=== PATIENT | female | born 1935 | race African-American/Black ===

== ENCOUNTER 2017-12-20 17:59 | Emergency (ER) | payer MEDICARE, MEDICAID ==
[2017-12-20] MEDS ORDERED: HALOPERIDOL LACTATE 5 MG/ML VIAL. (19:48)
[2017-12-20] MEDS: HALOPERIDOL LACTATE 5 MG/ML VIAL. IM (19:53)
== END 2017-12-20 21:50 | disposition home or self-care (01) ==
LOC: ER 17:59
DX: S09.90XA Unspecified injury of head, initial encounter (principal); Z86.73 Personal history of transient ischemic attack (TIA), and cerebral infarction without residual deficits; F02.80 Dementia in other diseases classified elsewhere, unspecified severity, without behavioral disturbance, psychotic disturbance, mood disturbance, and anxiety; G30.9 Alzheimer's disease, unspecified; E10.9 Type 1 diabetes mellitus without complications; I10 Essential (primary) hypertension; W18.39XA Other fall on same level, initial encounter; Y93.89 Activity, other specified; Y92.89 Other specified places as the place of occurrence of the external cause; Y99.8 Other external cause status
CPT/HCPCS: 70450; 72125; 96372; 99284-25; J1630

== ENCOUNTER 2019-02-11 09:46 | Inpatient (IN) | payer MEDICARE, OTHER ==
[~2019-02-11] VITALS: Ht 170.2 cm; Wt 81.6 kg
[~2019-02-11 09:46] MED LIST: ACET325T21 PO; AMLO10TA8 PO; ASPI-39 PO; BISA10SU55 RC; CARV6.25 PO; CLON0.1T PO; DOCU100C28 PO; LEVE500T56 PO; MULT-245 PO; ONDA4TAB7 PO; VALS320T2 PO; milk of magnesia
--- NOTE | 2019-02-11 10:35 | PHYS DOC ---
Past Medical History Past Medical History: Constipation, Dementia, Diabetes-Type I Additional Past Medical Histor: ALZHEIMERS, DYSPHAGIA WITH PUREED DIET Past Surgical History: Other Additional Past Surgical Histo: unknown Alcohol Use: None Drug Use: None Adult General Chief Complaint Chief Complaint: ALTERED MENTAL STATUS HPI HPI Patient is a 84 year old female brought in by EMS cause of altered level of consciousness. Patient is a resident of memory loss units of detention and since this morning when she woke up at 6:30 did not acting like her usual and did not talk or following the commands. Patient had GCS of 11. EMS with stable vital signs. Patient does not talk. Review of Systems Review of Systems Unable to obtain because of altered level of consciousness and history of dementia Current Medications Current Medications Current Medications Medications (Trade) Dose Ordered Sig/Akiko Start Time Stop Time Status Last Admin Dose Admin Sodium Chloride 500 ml @ 500 mls/hr 1X ONCE 02/11/19 12:15 02/11/19 13:14 DC 02/11/19 12:15 500 MLS/HR Allergies Allergies Allergies Coded Allergies Type Severity Reaction Last Updated Verified No Known Drug Allergies 01/07/14 No Physical Exam Physical Exam Constitutional: Well nourished, mild distress, non-toxic appearance, nonverbal and uncooperative, limited exam. [] HENT: Normocephalic, atraumatic Eyes: PERRLA, EOMI, conjunctiva normal, no discharge. [] Neck: Normal range of motion, no tenderness, supple, no stridor. [] Cardiovascular: Bradycardia, no murmur [] Lungs & Thorax: Bilateral breath sounds clear to auscultation [] Abdomen: Bowel sounds normal, soft, no tenderness, no masses, no pulsatile masses. [] Skin: Warm, dry, no erythema, no rash. [] Back: No tenderness, no CVA tenderness. [] Extremities: No deformity Neurologic: Awake, moves all extremities Psychologic: Unable to evaluate Current Patient Data Vital Signs Vital Signs Date Time Temp Pulse Resp B/P (MAP) Pulse Ox O2 Delivery O2 Flow Rate FiO2 02/11/19 12:00 54 14 02/11/19 11:00 100 02/11/19 09:55 97.4 145/90 (108) Room Air 97.4 Lab Values Laboratory Tests Test 02/11/19 11:08 02/11/19 11:42 White Blood Count 4.3 x10^3/uL (4.0-11.0) Red Blood Count 4.43 x10^6/uL (3.50-5.40) Hemoglobin 13.2 g/dL (12.0-15.5) Hematocrit 40.4 % (36.0-47.0) Mean Corpuscular Volume 91 fL (79-100) Mean Corpuscular Hemoglobin 30 pg (25-35) Mean Corpuscular Hemoglobin Concent 33 g/dL (31-37) Red Cell Distribution Width 13.6 % (11.5-14.5) Platelet Count 280 x10^3/uL (140-400) Neutrophils (%) (Auto) 41 % (31-73) Lymphocytes (%) (Auto) 46 % (24-48) Monocytes (%) (Auto) 11 % (0-9) H Eosinophils (%) (Auto) 2 % (0-3) Basophils (%) (Auto) 1 % (0-3) Neutrophils # (Auto) 1.8 x10^3uL (1.8-7.7) Lymphocytes # (Auto) 2.0 x10^3/uL (1.0-4.8) Monocytes # (Auto) 0.5 x10^3/uL (0.0-1.1) Eosinophils # (Auto) 0.1 x10^3/uL (0.0-0.7) Basophils # (Auto) 0.0 x10^3/uL (0.0-0.2) Erythrocyte Sedimentation Rate 21 (0-25) Sodium Level 143 mmol/L (136-145) Potassium Level 3.9 mmol/L (3.5-5.1) Chloride Level 105 mmol/L (98-107) Carbon Dioxide Level 27 mmol/L (21-32) Anion Gap 11 (6-14) Blood Urea Nitrogen 10 mg/dL (7-20) Creatinine 0.7 mg/dL (0.6-1.0) Estimated GFR (Cockcroft-Gault) 96.0 BUN/Creatinine Ratio 14 (6-20) Glucose Level 93 mg/dL (70-99) Lactic Acid Level 1.0 mmol/L (0.4-2.0) Calcium Level 9.3 mg/dL (8.5-10.1) Magnesium Level 2.0 mg/dL (1.8-2.4) Total Bilirubin 0.6 mg/dL (0.2-1.0) Aspartate Amino Transferase (AST) 14 U/L (15-37) L Alanine Aminotransferase (ALT) 15 U/L (14-59) Alkaline Phosphatase 101 U/L (46-116) Creatine Kinase 64 U/L (26-192) Troponin I Quantitative < 0.017 ng/mL (0.000-0.055) RP-Nzo-D-Type Natriuretic Peptide 35 pg/mL (0-449) Total Protein 8.5 g/dL (6.4-8.2) H Albumin 3.8 g/dL (3.4-5.0) Albumin/Globulin Ratio 0.8 (1.0-1.7) L Lipase 149 U/L (73-393) Thyroid Stimulating Hormone (TSH) 1.952 uIU/mL (0.358-3.74) Urine Collection Type U cath Urine Color Yellow Urine Clarity Clear Urine pH 7.0 Urine Specific [place] 1.010 Urine Protein Negative mg/dL (NEG-TRACE) Urine Glucose (UA) Negative mg/dL (NEG) Urine Ketones (Stick) Negative mg/dL (NEG) Urine Blood Negative (NEG) Urine Nitrite Negative (NEG) Urine Bilirubin Negative (NEG) Urine Urobilinogen Dipstick 1.0 mg/dL (0.2 mg/dL) Urine Leukocyte Esterase Negative (NEG) Urine RBC 1-2 /HPF (0-2) Urine WBC 0 /HPF (0-4) Urine Squamous Epithelial Cells Few /LPF Urine Amorphous Sediment Present /HPF Urine Bacteria 0 /HPF (0-FEW) Laboratory Tests 02/11/19 11:08 Laboratory Tests 02/11/19 11:08 EKG EKG EKG interpreted by me. EKG at 0 951 showed normal sinus rhythm at rate of 61, left axis deviation, left anterior fascicular block, LVH, inverted T-wave in lateral leads unchanged from previous EKG on 01/07/2014. Radiology/Procedures Radiology/Procedures [facility] [address] [place], [place] [id number] IMAGING REPORT Signed PATIENT: ALAN LEE ACCOUNT: [id number] : 1935 LOCATION: ER AGE: 84 SEX: F EXAM STATUS: REG ER ORD. PHYSICIAN: ANDRE ZARAGOZA MD REASON: ALOC PROCEDURE: PORTABLE CHEST 1V PORTABLE CHEST 1V Clinical indications: Altered level of consciousness COMPARISON: Chest x-ray dated January 08, 2014. Findings: A right IJ central line is in place and tip is seen within the lower superior vena cava at the junction with the right atrium No acute lung infiltrate or pleural effusion or pulmonary edema or lung mass or pneumothorax is seen. The heart size, pulmonary vasculature, mediastinum and both fredi are stable. Impression: No acute radiographic abnormality is seen. Electronically signed by: Aldo Jimenez MD (02/11/2019 11:00 AM) [facility] DICTATED and SIGNED BY: ALDO JIMENEZ MD DATE: 02/11/19 1100 [facility] [address] [place] [address] IMAGING REPORT Signed PATIENT: ALAN LEE ACCOUNT: [id number] : 1935 LOCATION: ER AGE: 84 SEX: F EXAM STATUS: REG ER ORD. PHYSICIAN: ANDRE ZARAGOZA MD REASON: ALOC PROCEDURE: CT HEAD WO CONTRAST CT HEAD WO CONTRAST Clinical indications: Altered level of consciousness COMPARISON: December 20, 2017. Technique: Noncontrast axial cross sectional scanning of the head was performed. PQRS compliance Statement One or more of the following individualized dose reduction techniques were utilized for this study: 1. Automated exposure control 2. Adjustment of the mA and/or kV according to patient size 3. Use of iterative reconstruction technique Findings: Ventricular shunt catheter is apparent. It is unchanged in position. There is another catheter seen extending through the posterior right parietal vertex area into the midline falx cerebri superior to the right lateral ventricle. This was seen previously and is unchanged. No acute intracranial hemorrhage or midline shift or mass-effect or hydrocephalus or extra-axial fluid collection is seen. Again seen is encephalomalacia of the right anterior parietal and posterior frontal area and head of the caudate nucleus including the anterior limb of internal capsule on the right side due to an old infarct. Again seen is encephalomalacia of the posterior left parietal region of the left temporal region due to an old cortical infarct.. No skull fracture or pneumocephalus is seen. No opacification of the mastoid sinuses or the paranasal sinuses is seen. The maxillary sinuses are not completely seen in this study. Impression: No acute intracranial abnormality is seen. Old infarcts. Stable ventricular system with ventricular shunt catheter in place. Electronically signed by: Aldo Jimenez MD (02/11/2019 11:05 AM) [facility] DICTATED and SIGNED BY: ALDO JIMENEZ MD DATE: 02/11/19 1532 Course & Med Decision Making Course & Med Decision Making Pertinent Labs and Imaging studies reviewed. (See chart for details) Evaluation of patient in ER showed 84-year-old female patient with history of dementia brought in because of altered level of consciousness. Patient was awake and moving her extremities. Patient did not talk and making some nonsense sounds. Patient had unremarkable labs and CT and EKG. Patient treated with IV fluids. Patient requiring admission for further evaluation and treatment. D iscussed with Dr. Lane who is in agreement with admission. Discussed findings and plan with patient and family, who acknowledge understanding and agreement. Dragon Disclaimer Dragon Disclaimer This electronic medical record was generated, in whole or in part, using a voice recognition dictation system. Departure Departure Impression: Primary Impression: Altered level of consciousness Additional Impression: Dementia Disposition: 09 ADMITTED INPATIENT Admitting Physician: Ambar Lane Condition: IMPROVED Referrals: DAT CARDENAS MD (PCP) Problem Qualifiers Additional Impression: Dementia Dementia type: unspecified type Dementia behavioral disturbance: without behavioral disturbance Qualified Codes: F03.90 - Unspecified dementia without behavioral disturbance ANDRE ZARAGOZA MD February 11, 2019 10:35
--- NOTE | 2019-02-11 11:03 | RAD ---
PORTABLE CHEST 1V Clinical indications: Altered level of consciousness COMPARISON: Chest x-ray dated January 08, 2014. Findings: A right IJ central line is in place and tip is seen within the lower superior vena cava at the junction with the right atrium No acute lung infiltrate or pleural effusion or pulmonary edema or lung mass or pneumothorax is seen. The heart size, pulmonary vasculature, mediastinum and both fredi are stable. Impression: No acute radiographic abnormality is seen. Electronically signed by: Jaziel Jimenez MD (02/11/2019 11:00 AM) [facility]
--- NOTE | 2019-02-11 11:08 | RAD ---
CT HEAD WO CONTRAST Clinical indications: Altered level of consciousness COMPARISON: December 20, 2017. Technique: Noncontrast axial cross sectional scanning of the head was performed. PQRS compliance Statement One or more of the following individualized dose reduction techniques were utilized for this study: 1. Automated exposure control 2. Adjustment of the mA and/or kV according to patient size 3. Use of iterative reconstruction technique Findings: Ventricular shunt catheter is apparent. It is unchanged in position. There is another catheter seen extending through the posterior right parietal vertex area into the midline falx cerebri superior to the right lateral ventricle. This was seen previously and is unchanged. No acute intracranial hemorrhage or midline shift or mass-effect or hydrocephalus or extra-axial fluid collection is seen. Again seen is encephalomalacia of the right anterior parietal and posterior frontal area and head of the caudate nucleus including the anterior limb of internal capsule on the right side due to an old infarct. Again seen is encephalomalacia of the posterior left parietal region of the left temporal region due to an old cortical infarct.. No skull fracture or pneumocephalus is seen. No opacification of the mastoid sinuses or the paranasal sinuses is seen. The maxillary sinuses are not completely seen in this study. Impression: No acute intracranial abnormality is seen. Old infarcts. Stable ventricular system with ventricular shunt catheter in place. Electronically signed by: Jaziel Jimenez MD (02/11/2019 11:05 AM) [facility]
[2019-02-11 11:17] LABS: BASO % 1 % (0-3); EOS # 0.1 x10^3/uL (0.0-0.7); EOS % 2 % (0-3); HEMATOCRIT 40.4 % (36.0-47.0); HEMOGLOBIN 13.2 g/dL (12.0-15.5); LYMPH % 46 % (24-48); MEAN CORPUSCULAR HEMOGLOBIN 30 pg (25-35); MEAN CORPUSCULAR HGB CONC 33 g/dL (31-37); MEAN CORPUSCULAR VOLUME 91 fL (79-100); MONO # 0.5 x10^3/uL (0.0-1.1); MONO % 11 % (0-9); NEUT # 1.8 x10^3uL (1.8-7.7); NEUT % 41 % (31-73); PLATELET COUNT 280 x10^3/uL (140-400); RED BLOOD COUNT 4.43 x10^6/uL (3.50-5.40); RED CELL DISTRIBUTION WIDTH 13.6 % (11.5-14.5); WHITE BLOOD COUNT 4.3 x10^3/uL (4.0-11.0)
--- NOTE | 2019-02-11 11:28 | EKG ---
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
[2019-02-11 11:30] LABS: CALCIUM 9.3 mg/dL (8.5-10.1); CREATININE 0.7 mg/dL (0.6-1.0); POTASSIUM 3.9 mmol/L (3.5-5.1)
[2019-02-11 11:44] LABS: ALBUMIN 3.8 g/dL (3.4-5.0); ALBUMIN/GLOBULIN RATIO 0.8 (1.0-1.7); TOTAL BILIRUBIN 0.6 mg/dL (0.2-1.0); TOTAL PROTEIN 8.5 g/dL (6.4-8.2)
[2019-02-11 11:55] LABS: BILIRUBIN,URINE NEGATIVE (NEG); CLARITY,URINE CLEAR; COLOR,URINE YELLOW; NITRITE,URINE NEGATIVE (NEG); PROTEIN,URINE NEGATIVE (NEG-TRACE)
[2019-02-11 12:09] LABS: SQUAMOUS EPITHELIAL CELL,UR FEW /LPF
[2019-02-11 12:10] LABS: AMORPHOUS SEDIMENT,UR PRESENT /HPF; BACTERIA,URINE 0 /HPF (0-FEW); WBC,URINE 0 /HPF (0-4)
[2019-02-11] MEDS ORDERED: IV NORMAL SALINE 500ML BAG 500 ML IV ONE (12:15)
[2019-02-11] MEDS: IV NORMAL SALINE 1000ML BAG 1,000 ML IV SCH ×2 (13:04→21:02)
--- NOTE | 2019-02-11 13:27 | PDOC1 ---
History and Physical Date of Admission Date of Admission DATE: 02/11/19 TIME: 13:21 Identification/Chief Complaint Chief Complaint Change in mental status Source Source: Caregiver, Chart review, Patient History of Present Illness History of Present Illness 84-year-old female, she resides in the memory center at [facility]. She was brought in because her baseline is usually talkative and oriented 1, and now she just moans and moans when she answers to my questions. No family at bedside. I'm unsure if she's a full code. She was last seen here [address] Tico Wright. Labs actually looked great and there is no signs of infection. Patient admitted for further workup because of this change in mental status. CT head and chest x-ray normal NO sedimentation rate yet. No signs of infection in the urine and no signs of pneumonia. Im unsure if she actually eats a dysphagia diet and mcc a regular diet Past Medical History Cardiovascular: HTN CENTRAL NERVOUS SYSTEM: Dementia, Seizure Past Surgical History Past Surgical History: No pertinent history Family History Family History: Family History Unknown Social History Smoke: No ALCOHOL: none Drugs: None Current Medications Current Medications Current Medications Sodium Chloride 500 ml @ 500 mls/hr 1X ONCE IV Last administered on 02/11/19at 12:15; Start 02/11/19 at 12:15; Stop 02/11/19 at 13:14; Status DC Sodium Chloride 1,000 ml @ 100 mls/hr Q10H IV ; Start 02/11/19 at 13:04; Stop 02/12/19 at 13:03 Acetaminophen (Tylenol) 500 mg PRN Q6HRS PRN PO MILD PAIN / TEMP; Start 02/11/19 at 13:30; Status UNV Ondansetron HCl (Zofran) 4 mg PRN Q6HRS PRN IV NAUSEA/VOMITING; Start 02/11/19 at 13:30; Status UNV Acetaminophen (Tylenol) 325 mg BID PO ; Start 02/11/19 at 21:00; Status UNV Amlodipine Besylate (Norvasc) 10 mg DAILY PO ; Start 02/12/19 at 09:00; Status UNV Aspirin (Children'S Aspirin) 81 mg DAILY PO ; Start 02/12/19 at 09:00; Status UNV Carvedilol (Coreg) 6.25 mg BID PO ; Start 02/11/19 at 21:00; Status UNV Clonidine HCl (Catapres) 0.1 mg BID PO ; Start 02/11/19 at 21:00; Status UNV Docusate Sodium (Colace) 100 mg DAILY PO ; Start 02/12/19 at 09:00; Status UNV Levetiracetam (Keppra) 500 mg DAILY PO ; Start 02/12/19 at 09:00; Status UNV Multivit/ Folic Acid/Iron (Multivitamin ) 1 tab DAILY PO ; Start 02/12/19 at 09:00; Status UNV Active Scripts Active Reported Acetaminophen 325 Mg Tablet 325 Mg PO Zofran (Ondansetron Hcl) 4 Mg Tablet 4 Mg PO Dulcolax (Bisacodyl) 10 Mg Supp.rect 10 Mg RC [milk of magnesia] Clonidine Hcl 0.1 Mg Tablet 0.1 Mg PO Docusate Sodium 100 Mg Capsule 100 Mg PO Ema Chewable (Aspirin) 81 Mg Tab.chew 81 Mg PO Coreg (Carvedilol) 6.25 Mg Tablet 6.25 Mg PO Keppra (Levetiracetam) 500 Mg Tablet 500 Mg PO Amlodipine Besylate 10 Mg Tablet 10 Mg PO Multi Vitamin Daily (Multivitamin) 1 Each Tablet 1 Each PO Diovan (Valsartan) 320 Mg Tablet 320 Mg PO Allergies Allergies: Coded Allergies: No Known Drug Allergies (Unverified , 01/07/14) ROS Review of System Dementia, ROS could not be obtained Physical Exam General: No acute distress, Other (moans, awake, moans when I ask her questio ns) HEENT: PERRLA Lungs: Clear to auscultation, Normal air movement Heart: S1S2, RRR, no thrills, no rubs, no gallops, no murmurs Cardiovascular: S1, S2 Breasts: Normal, Rt breast nml w/o mass, Lt breast nml w/o mass, Nipples normal Abdomen: Normal bowel sounds, Soft, No tenderness, No hepatosplenomegaly, No masses Rectal Exam: not examined PELVIC: Nml ext genitalia Extremities: No clubbing, No cyanosis, No edema, Normal pulses, No tender ness/swelling Skin: No rashes, No breakdown, No significant lesion Vitals Vitals Vital Signs Date Time Temp Pulse Resp B/P (MAP) Pulse Ox O2 Delivery O2 Flow Rate FiO2 02/11/19 12:30 58 18 02/11/19 11:00 100 02/11/19 09:55 97.4 145/90 (108) Room Air 97.4 Labs Labs Laboratory Tests Test 02/11/19 11:08 02/11/19 11:42 White Blood Count 4.3 x10^3/uL (4.0-11.0) Red Blood Count 4.43 x10^6/uL (3.50-5.40) Hemoglobin 13.2 g/dL (12.0-15.5) Hematocrit 40.4 % (36.0-47.0) Mean Corpuscular Volume 91 fL (79-100) Mean Corpuscular Hemoglobin 30 pg (25-35) Mean Corpuscular Hemoglobin Concent 33 g/dL (31-37) Red Cell Distribution Width 13.6 % (11.5-14.5) Platelet Count 280 x10^3/uL (140-400) Neutrophils (%) (Auto) 41 % (31-73) Lymphocytes (%) (Auto) 46 % (24-48) Monocytes (%) (Auto) 11 % (0-9) Eosinophils (%) (Auto) 2 % (0-3) Basophils (%) (Auto) 1 % (0-3) Neutrophils # (Auto) 1.8 x10^3uL (1.8-7.7) Lymphocytes # (Auto) 2.0 x10^3/uL (1.0-4.8) Monocytes # (Auto) 0.5 x10^3/uL (0.0-1.1) Eosinophils # (Auto) 0.1 x10^3/uL (0.0-0.7) Basophils # (Auto) 0.0 x10^3/uL (0.0-0.2) Sodium Level 143 mmol/L (136-145) Potassium Level 3.9 mmol/L (3.5-5.1) Chloride Level 105 mmol/L (98-107) Carbon Dioxide Level 27 mmol/L (21-32) Anion Gap 11 (6-14) Blood Urea Nitrogen 10 mg/dL (7-20) Creatinine 0.7 mg/dL (0.6-1.0) Estimated GFR (Cockcroft-Gault) 96.0 BUN/Creatinine Ratio 14 (6-20) Glucose Level 93 mg/dL (70-99) Lactic Acid Level 1.0 mmol/L (0.4-2.0) Calcium Level 9.3 mg/dL (8.5-10.1) Magnesium Level 2.0 mg/dL (1.8-2.4) Total Bilirubin 0.6 mg/dL (0.2-1.0) Aspartate Amino Transf (AST/SGOT) 14 U/L (15-37) Alanine Aminotransferase (ALT/SGPT) 15 U/L (14-59) Alkaline Phosphatase 101 U/L (46-116) Creatine Kinase 64 U/L (26-192) Troponin I Quantitative < 0.017 ng/mL (0.000-0.055) XT-Uzm-U-Type Natriuretic Peptide 35 pg/mL (0-449) Total Protein 8.5 g/dL (6.4-8.2) Albumin 3.8 g/dL (3.4-5.0) Albumin/Globulin Ratio 0.8 (1.0-1.7) Lipase 149 U/L (73-393) Urine Collection Type U cath Urine Color Yellow Urine Clarity Clear Urine pH 7.0 Urine Specific [place] 1.010 Urine Protein Negative mg/dL (NEG-TRACE) Urine Glucose (UA) Negative mg/dL (NEG) Urine Ketones (Stick) Negative mg/dL (NEG) Urine Blood Negative (NEG) Urine Nitrite Negative (NEG) Urine Bilirubin Negative (NEG) Urine Urobilinogen Dipstick 1.0 mg/dL (0.2 mg/dL) Urine Leukocyte Esterase Negative (NEG) Urine RBC 1-2 /HPF (0-2) Urine WBC 0 /HPF (0-4) Urine Squamous Epithelial Cells Few /LPF Urine Amorphous Sediment Present /HPF Urine Bacteria 0 /HPF (0-FEW) Laboratory Tests Test 02/11/19 11:08 02/11/19 11:42 White Blood Count 4.3 x10^3/uL (4.0-11.0) Red Blood Count 4.43 x10^6/uL (3.50-5.40) Hemoglobin 13.2 g/dL (12.0-15.5) Hematocrit 40.4 % (36.0-47.0) Mean Corpuscular Volume 91 fL (79-100) Mean Corpuscular Hemoglobin 30 pg (25-35) Mean Corpuscular Hemoglobin Concent 33 g/dL (31-37) Red Cell Distribution Width 13.6 % (11.5-14.5) Platelet Count 280 x10^3/uL (140-400) Neutrophils (%) (Auto) 41 % (31-73) Lymphocytes (%) (Auto) 46 % (24-48) Monocytes (%) (Auto) 11 % (0-9) Eosinophils (%) (Auto) 2 % (0-3) Basophils (%) (Auto) 1 % (0-3) Neutrophils # (Auto) 1.8 x10^3uL (1.8-7.7) Lymphocytes # (Auto) 2.0 x10^3/uL (1.0-4.8) Monocytes # (Auto) 0.5 x10^3/uL (0.0-1.1) Eosinophils # (Auto) 0.1 x10^3/uL (0.0-0.7) Basophils # (Auto) 0.0 x10^3/uL (0.0-0.2) Sodium Level 143 mmol/L (136-145) Potassium Level 3.9 mmol/L (3.5-5.1) Chloride Level 105 mmol/L (98-107) Carbon Dioxide Level 27 mmol/L (21-32) Anion Gap 11 (6-14) Blood Urea Nitrogen 10 mg/dL (7-20) Creatinine 0.7 mg/dL (0.6-1.0) Estimated GFR (Cockcroft-Gault) 96.0 BUN/Creatinine Ratio 14 (6-20) Glucose Level 93 mg/dL (70-99) Lactic Acid Level 1.0 mmol/L (0.4-2.0) Calcium Level 9.3 mg/dL (8.5-10.1) Magnesium Level 2.0 mg/dL (1.8-2.4) Total Bilirubin 0.6 mg/dL (0.2-1.0) Aspartate Amino Transf (AST/SGOT) 14 U/L (15-37) Alanine Aminotransferase (ALT/SGPT) 15 U/L (14-59) Alkaline Phosphatase 101 U/L (46-116) Creatine Kinase 64 U/L (26-192) Troponin I Quantitative < 0.017 ng/mL (0.000-0.055) JT-Nww-I-Type Natriuretic Peptide 35 pg/mL (0-449) Total Protein 8.5 g/dL (6.4-8.2) Albumin 3.8 g/dL (3.4-5.0) Albumin/Globulin Ratio 0.8 (1.0-1.7) Lipase 149 U/L (73-393) Urine Collection Type U cath Urine Color Yellow Urine Clarity Clear Urine pH 7.0 Urine Specific [place] 1.010 Urine Protein Negative mg/dL (NEG-TRACE) Urine Glucose (UA) Negative mg/dL (NEG) Urine Ketones (Stick) Negative mg/dL (NEG) Urine Blood Negative (NEG) Urine Nitrite Negative (NEG) Urine Bilirubin Negative (NEG) Urine Urobilinogen Dipstick 1.0 mg/dL (0.2 mg/dL) Urine Leukocyte Esterase Negative (NEG) Urine RBC 1-2 /HPF (0-2) Urine WBC 0 /HPF (0-4) Urine Squamous Epithelial Cells Few /LPF Urine Amorphous Sediment Present /HPF Urine Bacteria 0 /HPF (0-FEW) VTE Prophylaxis Ordered VTE Prophylaxis Devices: Yes VTE Pharmacological Prophylaxi: Yes Assessment/Plan Assessment/Plan Mett encephalopathy, so far no signs of infection-we'll check Keppra levels - Check sedimentation rate Check TSH [facility] resident Alzheimer's type dementia Hypertension, controlled SZ? 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
[2019-02-11] MEDS ORDERED: ACETAMINOPHEN 500 MG TABLET PO PRN (13:30)
[2019-02-11] MEDS ORDERED: ONDANSETRON PF 4 MG/2 ML VIAL. IV PRN (13:30)
[2019-02-11 13:58] VITALS: BP 157/102
[2019-02-11] MEDS ORDERED: DOCUSATE SODIUM 100 MG CAPSULE. PO SCH (14:30)
[2019-02-11] MEDS: amLODIPine BESYLATE 10 MG TABLET PO SCH (14:30)
[2019-02-11] MEDS ORDERED: ACETAMINOPHEN 325 MG TABLET. PO SCH (14:30)
[2019-02-11] MEDS ORDERED: cloNIDine HCL 0.1 MG TABLET PO SCH (14:30)
[2019-02-11] MEDS ORDERED: PRENATAL MULTIVITAMIN TABLET. PO SCH (14:30)
[2019-02-11] MEDS: ASPIRIN CHEWABLE 81 MG TABLET. PO SCH (14:30)
[2019-02-11] MEDS: levETIRAcetam 500 MG TABLET PO SCH (14:30)
[2019-02-11 15:00] VITALS: BP 155/89
[2019-02-11] MEDS ORDERED: POTA20LI27 PO (15:13)
[2019-02-11] MEDS ORDERED: MAGN400O7 PO (15:13)
[2019-02-11] MEDS ORDERED: MELA3TAB2 PO (15:13)
[2019-02-11] MEDS ORDERED: SENN-80 PO (15:13)
[2019-02-11] MEDS ORDERED: POLY17PO29 PO (15:13)
[2019-02-11] MEDS ORDERED: CARVEDILOL 6.25 MG TABLET. PO SCH (17:00)
[2019-02-11 19:11] VITALS: BP 138/87
[2019-02-11] MEDS: SENNOSIDES 8.6 MG TABLET PO SCH (21:00)
[2019-02-11] MEDS ORDERED: NON FORMULARY ITEM (Melatonin 1 TAB) PO SCH (21:00)
[2019-02-11 23:56] VITALS: BP 134/88
[2019-02-12 03:28] VITALS: BP 106/61
[2019-02-12 07:00] VITALS: BP 148/89
[2019-02-12] MEDS: IV NORMAL SALINE 1000ML BAG 1,000 ML IV SCH (07:06)
[2019-02-12] MEDS: MAGNESIUM HYDROXIDE 2,400 MG/30 ML ORAL.SUSP. PO SCH (10:13)
[2019-02-12] MEDS: SENNOSIDES 8.6 MG TABLET PO SCH ×2 (10:13→21:00)
[2019-02-12] MEDS: levETIRAcetam 500 MG TABLET PO SCH (10:14)
[2019-02-12] MEDS: ASPIRIN CHEWABLE 81 MG TABLET. PO SCH (10:14)
[2019-02-12] MEDS: amLODIPine BESYLATE 10 MG TABLET PO SCH (10:14)
[2019-02-12] MEDS: POTASSIUM CHLORIDE 20 MEQ TABLET.ER. PO SCH (10:15)
[2019-02-12] MEDS: POLYETHYLENE GLYCOL 3350 17 GM PACKET. PO SCH (10:15)
--- NOTE | 2019-02-12 10:44 | PDOC2 ---
CONSULT Date of Consult Date of Consult DATE: 02/12/19 TIME: 10:44 Reason for Consult Reason for Consult: AMS Identification/Chief Complaint Chief Complaint AMS History of Present Illness Reason for Visit: This patient is 84[facility]-old [facility] from [facility]. Patient has history of Alzheimer's disease. Patient has history of seizure disorder maintained on Keppra. Patient had episode of confusion. Patient did not have any tongue bite or jerking in her extremities. Past Medical History Cardiovascular: HTN CENTRAL NERVOUS SYSTEM: Dementia, Seizure Past Surgical History Past Surgical History: No pertinent history Family History Family History: Family History Unknown Social History No ALCOHOL: none Drugs: None Current Problem List Problem List Problems Medical Problems: (1) Altered level of consciousness Status: Acute (2) Dementia Status: Acute Current Medications Current Medications Current Medications Sodium Chloride 500 ml @ 500 mls/hr 1X ONCE IV Last administered on 02/11/19at 12:15; Start 02/11/19 at 12:15; Stop 02/11/19 at 13:14; Status DC Sodium Chloride 1,000 ml @ 100 mls/hr Q10H IV Last administered on 02/12/19at 07:06; Start 02/11/19 at 13:04; Stop 02/12/19 at 13:03 Acetaminophen (Tylenol) 500 mg PRN Q6HRS PRN PO MILD PAIN / TEMP; Start 02/11/19 at 13:30 Ondansetron HCl (Zofran) 4 mg PRN Q6HRS PRN IV NAUSEA/VOMITING; Start 02/11/19 at 13:30 Acetaminophen (Tylenol) 325 mg BID PO ; Start 02/11/19 at 14:30; Stop 02/11/19 at 17:10; Status DC Amlodipine Besylate (Norvasc) 10 mg DAILY PO Last administered on 02/12/19at 10:14; Start 02/11/19 at 14:30 Aspirin (Children'S Aspirin) 81 mg DAILY PO Last administered on 02/12/19at 10:14; Start 02/11/19 at 14:30 Carvedilol (Coreg) 6.25 mg BIDWMEALS PO ; Start 02/11/19 at 17:00; Stop 02/11/19 at 17:10; Status DC Clonidine HCl (Catapres) 0.1 mg BID PO ; Start 02/11/19 at 14:30; Stop 02/11/19 at 17:10; Status DC Docusate Sodium (Colace) 100 mg DAILY PO ; Start 02/11/19 at 14:30; Stop 02/11/19 at 17:10; Status DC Levetiracetam (Keppra) 500 mg DAILY PO Last administered on 02/12/19 10:14; Start 02/11/19 at 14:30 Multivit/ Folic Acid/Iron (Multivitamin ) 1 tab DAILY PO ; Start 02/11/19 at 14:30; Stop 02/11/19 at 17:10; Status DC Magnesium Hydroxide (Milk Of Magnesia) 400 mg DAILY PO Last administered on 02/12/19at 10:13; Start 02/12/19 at 09:00 Non-Formulary Medication (Melatonin ) 1 tab QHS PO ; Start 02/11/19 at 21:00; Status UNV Polyethylene Glycol (miraLAX PACKET) 17 gm DAILY PO Last administered on 02/12/19 10:15; Start 02/12/19 at 09:00 Potassium Chloride (Klor-Con) 20 meq DAILYWBKFT PO Last administered on 02/12/19 10:15; Start 02/12/19 at 08:00 Sennosides (Senna) 8.6 mg BID PO Last administered on 02/12/19 10:13; Start 02/11/19 at 21:00 Active Scripts Active Reported Senna (Sennosides) 8.6 Mg Tablet 8.6 Mg PO BID Potassium Chloride Oral Liquid (Potassium Chloride) 20 Meq/15 Ml Liquid 20 Meq PO DAILY Miralax (Polyethylene Glycol 3350) 17 Gm Powd.pack 1 Packet PO DAILY Milk Of Magnesia (Magnesium Hydroxide) 400 Mg/5 Ml Oral.susp 400 Mg PO DAILY Melatonin 3 Mg Tablet 1 Tab PO QHS Acetaminophen 325 Mg Tablet 650 Mg PO PRN Q4HRS PRN Ema Chewable (Aspirin) 81 Mg Tab.chew 81 Mg PO DAILY Keppra (Levetiracetam) 500 Mg Tablet 750 Mg PO BID Amlodipine Besylate 10 Mg Tablet 10 Mg PO DAILY Allergies Allergies: Coded Allergies: No Known Drug Allergies (Unverified , 01/07/14) Physical Exam Physical Exam A 10-point review of systems was obtained. Other than the history of present illness the remainder of the review of systems is negative. General no acute distress. HEENT: Normocephalic and atraumatic. NECK: Supple without bruit Respiratory: Clear to auscultation bilaterally Heart: Regular rate and rhythm, S1S2 normal NEUROLOGIC: Mental status Alert cognitive impairment. Cranial nerve equally reactive pupils, and intact extraocular movements. No facial asymmetry. Palate elevates and tongue protrudes in midline. Reflexes are 1+with flexor plantar responses. Strength able to move all exts to stimuli upper more than lower Sensory exam is intact for light touch and pinprick. Gait in bed. Vitals VITALS Vital Signs Date Time Temp Pulse Resp B/P (MAP) Pulse Ox O2 Delivery O2 Flow Rate FiO2 02/12/19 10:14 51 148/89 02/12/19 07:00 98.1 18 97 Room Air 98.1 Labs Labs Laboratory Tests Test 02/11/19 11:08 02/11/19 11:42 02/11/19 16:38 02/11/19 21:39 White Blood Count 4.3 x10^3/uL (4.0-11.0) Red Blood Count 4.43 x10^6/uL (3.50-5.40) Hemoglobin 13.2 g/dL (12.0-15.5) Hematocrit 40.4 % (36.0-47.0) Mean Corpuscular Volume 91 fL (79-100) Mean Corpuscular Hemoglobin 30 pg (25-35) Mean Corpuscular Hemoglobin Concent 33 g/dL (31-37) Red Cell Distribution Width 13.6 % (11.5-14.5) Platelet Count 280 x10^3/uL (140-400) Neutrophils (%) (Auto) 41 % (31-73) Lymphocytes (%) (Auto) 46 % (24-48) Monocytes (%) (Auto) 11 % (0-9) Eosinophils (%) (Auto) 2 % (0-3) Basophils (%) (Auto) 1 % (0-3) Neutrophils # (Auto) 1.8 x10^3uL (1.8-7.7) Lymphocytes # (Auto) 2.0 x10^3/uL (1.0-4.8) Monocytes # (Auto) 0.5 x10^3/uL (0.0-1.1) Eosinophils # (Auto) 0.1 x10^3/uL (0.0-0.7) Basophils # (Auto) 0.0 x10^3/uL (0.0-0.2) Erythrocyte Sedimentation Rate 21 (0-25) Sodium Level 143 mmol/L (136-145) Potassium Level 3.9 mmol/L (3.5-5.1) Chloride Level 105 mmol/L (98-107) Carbon Dioxide Level 27 mmol/L (21-32) Anion Gap 11 (6-14) Blood Urea Nitrogen 10 mg/dL (7-20) Creatinine 0.7 mg/dL (0.6-1.0) Estimated GFR (Cockcroft-Gault) 96.0 BUN/Creatinine Ratio 14 (6-20) Glucose Level 93 mg/dL (70-99) Lactic Acid Level 1.0 mmol/L (0.4-2.0) Calcium Level 9.3 mg/dL (8.5-10.1) Magnesium Level 2.0 mg/dL (1.8-2.4) Total Bilirubin 0.6 mg/dL (0.2-1.0) Aspartate Amino Transf (AST/SGOT) 14 U/L (15-37) Alanine Aminotransferase (ALT/SGPT) 15 U/L (14-59) Alkaline Phosphatase 101 U/L (46-116) Creatine Kinase 64 U/L (26-192) Troponin I Quantitative < 0.017 ng/mL (0.000-0.055) BE-Man-G-Type Natriuretic Peptide 35 pg/mL (0-449) Total Protein 8.5 g/dL (6.4-8.2) Albumin 3.8 g/dL (3.4-5.0) Albumin/Globulin Ratio 0.8 (1.0-1.7) Lipase 149 U/L (73-393) Vitamin B12 Level 383 pg/mL (247-911) Thyroid Stimulating Hormone (TSH) 1.952 uIU/mL (0.358-3.74) Urine Collection Type U cath Urine Color Yellow Urine Clarity Clear Urine pH 7.0 Urine Specific [place] 1.010 Urine Protein Negative mg/dL (NEG-TRACE) Urine Glucose (UA) Negative mg/dL (NEG) Urine Ketones (Stick) Negative mg/dL (NEG) Urine Blood Negative (NEG) Urine Nitrite Negative (NEG) Urine Bilirubin Negative (NEG) Urine Urobilinogen Dipstick 1.0 mg/dL (0.2 mg/dL) Urine Leukocyte Esterase Negative (NEG) Urine RBC 1-2 /HPF (0-2) Urine WBC 0 /HPF (0-4) Urine Squamous Epithelial Cells Few /LPF Urine Amorphous Sediment Present /HPF Urine Bacteria 0 /HPF (0-FEW) Glucose (Fingerstick) 78 mg/dL (70-99) 95 mg/dL (70-99) Test 02/12/19 08:38 Glucose (Fingerstick) 85 mg/dL (70-99) Laboratory Tests Test 02/11/19 11:08 02/11/19 11:42 02/11/19 16:38 02/11/19 21:39 White Blood Count 4.3 x10^3/uL (4.0-11.0) Red Blood Count 4.43 x10^6/uL (3.50-5.40) Hemoglobin 13.2 g/dL (12.0-15.5) Hematocrit 40.4 % (36.0-47.0) Mean Corpuscular Volume 91 fL (79-100) Mean Corpuscular Hemoglobin 30 pg (25-35) Mean Corpuscular Hemoglobin Concent 33 g/dL (31-37) Red Cell Distribution Width 13.6 % (11.5-14.5) Platelet Count 280 x10^3/uL (140-400) Neutrophils (%) (Auto) 41 % (31-73) Lymphocytes (%) (Auto) 46 % (24-48) Monocytes (%) (Auto) 11 % (0-9) Eosinophils (%) (Auto) 2 % (0-3) Basophils (%) (Auto) 1 % (0-3) Neutrophils # (Auto) 1.8 x10^3uL (1.8-7.7) Lymphocytes # (Auto) 2.0 x10^3/uL (1.0-4.8) Monocytes # (Auto) 0.5 x10^3/uL (0.0-1.1) Eosinophils # (Auto) 0.1 x10^3/uL (0.0-0.7) Basophils # (Auto) 0.0 x10^3/uL (0.0-0.2) Erythrocyte Sedimentation Rate 21 (0-25) Sodium Level 143 mmol/L (136-145) Potassium Level 3.9 mmol/L (3.5-5.1) Chloride Level 105 mmol/L (98-107) Carbon Dioxide Level 27 mmol/L (21-32) Anion Gap 11 (6-14) Blood Urea Nitrogen 10 mg/dL (7-20) Creatinine 0.7 mg/dL (0.6-1.0) Estimated GFR (Cockcroft-Gault) 96.0 BUN/Creatinine Ratio 14 (6-20) Glucose Level 93 mg/dL (70-99) Lactic Acid Level 1.0 mmol/L (0.4-2.0) Calcium Level 9.3 mg/dL (8.5-10.1) Magnesium Level 2.0 mg/dL (1.8-2.4) Total Bilirubin 0.6 mg/dL (0.2-1.0) Aspartate Amino Transf (AST/SGOT) 14 U/L (15-37) Alanine Aminotransferase (ALT/SGPT) 15 U/L (14-59) Alkaline Phosphatase 101 U/L (46-116) Creatine Kinase 64 U/L (26-192) Troponin I Quantitative < 0.017 ng/mL (0.000-0.055) LT-Ant-F-Type Natriuretic Peptide 35 pg/mL (0-449) Total Protein 8.5 g/dL (6.4-8.2) Albumin 3.8 g/dL (3.4-5.0) Albumin/Globulin Ratio 0.8 (1.0-1.7) Lipase 149 U/L (73-393) Vitamin B12 Level 383 pg/mL (247-911) Thyroid Stimulating Hormone (TSH) 1.952 uIU/mL (0.358-3.74) Urine Collection Type U cath Urine Color Yellow Urine Clarity Clear Urine pH 7.0 Urine Specific [place] 1.010 Urine Protein Negative mg/dL (NEG-TRACE) Urine Glucose (UA) Negative mg/dL (NEG) Urine Ketones (Stick) Negative mg/dL (NEG) Urine Blood Negative (NEG) Urine Nitrite Negative (NEG) Urine Bilirubin Negative (NEG) Urine Urobilinogen Dipstick 1.0 mg/dL (0.2 mg/dL) Urine Leukocyte Esterase Negative (NEG) Urine RBC 1-2 /HPF (0-2) Urine WBC 0 /HPF (0-4) Urine Squamous Epithelial Cells Few /LPF Urine Amorphous Sediment Present /HPF Urine Bacteria 0 /HPF (0-FEW) Glucose (Fingerstick) 78 mg/dL (70-99) 95 mg/dL (70-99) Test 02/12/19 08:38 Glucose (Fingerstick) 85 mg/dL (70-99) Assessment/Plan Assessment/Plan This patient is 84-year-old woman from [facility]. Patient has history of Alzheimer's disease. Patient has history of seizure disorder maintained on Keppra. Patient had episode of confusion. Patient did not have any tongue bite or jerking in her extremities. 84-year-old woman with past medical history of seizure disorder, dementia with encephalopathy check for infectious or metabolic etiology with possible seizure episode. Patient appears to be at baseline. Patient had Keppra levels pending. Dementia continue treat and monitor. Hypertension continue treat and monitor. Patient is maintained on Keppra. PT OT evaluation Patient had a CT scan done on the brain which did not show any evidence of acute intracranial etiology. Old stroke noted. 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 Atrophy noted. MRI of brain pending if patient will get MRI of brain w ill repeat CT scan brain for interval exam. Continue medical management. She will follow up in neurology clinic KATH DENSON MD February 12, 2019 10:44
[2019-02-12 11:00] VITALS: BP 130/84
--- NOTE | 2019-02-12 11:13 | PDOC ---
PROGRESS NOTES Chief Complaint Chief Complaint Mett encephalopathy, so far no signs of infection-we'll check Keppra levels - Check sedimentation rate Check TSH [facility] resident Alzheimer's type dementia Hypertension, controlled SZ? 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 TIER Back to SNU on discharge Full code Vitals Vitals Vital Signs Date Time Temp Pulse Resp B/P (MAP) Pulse Ox O2 Delivery O2 Flow Rate FiO2 02/12/19 10:14 51 148/89 02/12/19 07:00 98.1 18 97 Room Air 98.1 Physical Exam General: Cooperative, No acute distress, Other (moans, awake, moans when I ask her questions) Heart: Regular rate, Normal S1, Normal S2 Lungs: Clear Abdomen: Normal bowel sounds, Soft, No tenderness, No hepatosplenomegaly, No masses Extremities: No clubbing, No cyanosis, No edema, Normal pulses, No tenderness/swelling Skin: No rashes, No breakdown, No significant lesion Labs LABS Laboratory Tests Test 02/11/19 11:42 02/11/19 16:38 02/11/19 21:39 02/12/19 08:38 Urine Collection Type U cath Urine Color Yellow Urine Clarity Clear Urine pH 7.0 Urine Specific [place] 1.010 Urine Protein Negative mg/dL (NEG-TRACE) Urine Glucose (UA) Negative mg/dL (NEG) Urine Ketones (Stick) Negative mg/dL (NEG) Urine Blood Negative (NEG) Urine Nitrite Negative (NEG) Urine Bilirubin Negative (NEG) Urine Urobilinogen Dipstick 1.0 mg/dL (0.2 mg/dL) Urine Leukocyte Esterase Negative (NEG) Urine RBC 1-2 /HPF (0-2) Urine WBC 0 /HPF (0-4) Urine Squamous Epithelial Cells Few /LPF Urine Amorphous Sediment Present /HPF Urine Bacteria 0 /HPF (0-FEW) Glucose (Fingerstick) 78 mg/dL (70-99) 95 mg/dL (70-99) 85 mg/dL (70-99) Review of Systems Review of Systems dementia hence limited ROS Assessment and Plan Assessmemt and Plan Problems Medical Problems: (1) Altered level of consciousness Status: Acute (2) Dementia Status: Acute Comment Review of Relevant I have reviewed the following items beau (where applicable) has been applied. Labs Laboratory Tests Test 02/11/19 11:08 02/11/19 11:42 02/11/19 16:38 02/11/19 21:39 White Blood Count 4.3 x10^3/uL (4.0-11.0) Red Blood Count 4.43 x10^6/uL (3.50-5.40) Hemoglobin 13.2 g/dL (12.0-15.5) Hematocrit 40.4 % (36.0-47.0) Mean Corpuscular Volume 91 fL (79-100) Mean Corpuscular Hemoglobin 30 pg (25-35) Mean Corpuscular Hemoglobin Concent 33 g/dL (31-37) Red Cell Distribution Width 13.6 % (11.5-14.5) Platelet Count 280 x10^3/uL (140-400) Neutrophils (%) (Auto) 41 % (31-73) Lymphocytes (%) (Auto) 46 % (24-48) Monocytes (%) (Auto) 11 % (0-9) Eosinophils (%) (Auto) 2 % (0-3) Basophils (%) (Auto) 1 % (0-3) Neutrophils # (Auto) 1.8 x10^3uL (1.8-7.7) Lymphocytes # (Auto) 2.0 x10^3/uL (1.0-4.8) Monocytes # (Auto) 0.5 x10^3/uL (0.0-1.1) Eosinophils # (Auto) 0.1 x10^3/uL (0.0-0.7) Basophils # (Auto) 0.0 x10^3/uL (0.0-0.2) Erythrocyte Sedimentation Rate 21 (0-25) Sodium Level 143 mmol/L (136-145) Potassium Level 3.9 mmol/L (3.5-5.1) Chloride Level 105 mmol/L (98-107) Carbon Dioxide Level 27 mmol/L (21-32) Anion Gap 11 (6-14) Blood Urea Nitrogen 10 mg/dL (7-20) Creatinine 0.7 mg/dL (0.6-1.0) Estimated GFR (Cockcroft-Gault) 96.0 BUN/Creatinine Ratio 14 (6-20) Glucose Level 93 mg/dL (70-99) Lactic Acid Level 1.0 mmol/L (0.4-2.0) Calcium Level 9.3 mg/dL (8.5-10.1) Magnesium Level 2.0 mg/dL (1.8-2.4) Total Bilirubin 0.6 mg/dL (0.2-1.0) Aspartate Amino Transf (AST/SGOT) 14 U/L (15-37) Alanine Aminotransferase (ALT/SGPT) 15 U/L (14-59) Alkaline Phosphatase 101 U/L (46-116) Creatine Kinase 64 U/L (26-192) Troponin I Quantitative < 0.017 ng/mL (0.000-0.055) YO-Cpk-K-Type Natriuretic Peptide 35 pg/mL (0-449) Total Protein 8.5 g/dL (6.4-8.2) Albumin 3.8 g/dL (3.4-5.0) Albumin/Globulin Ratio 0.8 (1.0-1.7) Lipase 149 U/L (73-393) Vitamin B12 Level 383 pg/mL (247-911) Thyroid Stimulating Hormone (TSH) 1.952 uIU/mL (0.358-3.74) Urine Collection Type U cath Urine Color Yellow Urine Clarity Clear Urine pH 7.0 Urine Specific [place] 1.010 Urine Protein Negative mg/dL (NEG-TRACE) Urine Glucose (UA) Negative mg/dL (NEG) Urine Ketones (Stick) Negative mg/dL (NEG) Urine Blood Negative (NEG) Urine Nitrite Negative (NEG) Urine Bilirubin Negative (NEG) Urine Urobilinogen Dipstick 1.0 mg/dL (0.2 mg/dL) Urine Leukocyte Esterase Negative (NEG) Urine RBC 1-2 /HPF (0-2) Urine WBC 0 /HPF (0-4) Urine Squamous Epithelial Cells Few /LPF Urine Amorphous Sediment Present /HPF Urine Bacteria 0 /HPF (0-FEW) Glucose (Fingerstick) 78 mg/dL (70-99) 95 mg/dL (70-99) Test 02/12/19 08:38 Glucose (Fingerstick) 85 mg/dL (70-99) Laboratory Tests Test 02/11/19 11:42 02/11/19 16:38 02/11/19 21:39 02/12/19 08:38 Urine Collection Type U cath Urine Color Yellow Urine Clarity Clear Urine pH 7.0 Urine Specific [place] 1.010 Urine Protein Negative mg/dL (NEG-TRACE) Urine Glucose (UA) Negative mg/dL (NEG) Urine Ketones (Stick) Negative mg/dL (NEG) Urine Blood Negative (NEG) Urine Nitrite Negative (NEG) Urine Bilirubin Negative (NEG) Urine Urobilinogen Dipstick 1.0 mg/dL (0.2 mg/dL) Urine Leukocyte Esterase Negative (NEG) Urine RBC 1-2 /HPF (0-2) Urine WBC 0 /HPF (0-4) Urine Squamous Epithelial Cells Few /LPF Urine Amorphous Sediment Present /HPF Urine Bacteria 0 /HPF (0-FEW) Glucose (Fingerstick) 78 mg/dL (70-99) 95 mg/dL (70-99) 85 mg/dL (70-99) Medications Current Medications Sodium Chloride 500 ml @ 500 mls/hr 1X ONCE IV Last administered on 02/11/19at 12:15; Start 02/11/19 at 12:15; Stop 02/11/19 at 13:14; Status DC Sodium Chloride 1,000 ml @ 100 mls/hr Q10H IV Last administered on 02/12/19at 07:06; Start 02/11/19 at 13:04; Stop 02/12/19 at 13:03 Acetaminophen (Tylenol) 500 mg PRN Q6HRS PRN PO MILD PAIN / TEMP; Start 02/11/19 at 13:30 Ondansetron HCl (Zofran) 4 mg PRN Q6HRS PRN IV NAUSEA/VOMITING; Start 02/11/19 at 13:30 Acetaminophen (Tylenol) 325 mg BID PO ; Start 02/11/19 at 14:30; Stop 02/11/19 at 17:10; Status DC Amlodipine Besylate (Norvasc) 10 mg DAILY PO Last administered on 02/12/19at 10:14; Start 02/11/19 at 14:30 Aspirin (Children'S Aspirin) 81 mg DAILY PO Last administered on 02/12/19at 10:14; Start 02/11/19 at 14:30 Carvedilol (Coreg) 6.25 mg BIDWMEALS PO ; Start 02/11/19 at 17:00; Stop 02/11/19 at 17:10; Status DC Clonidine HCl (Catapres) 0.1 mg BID PO ; Start 02/11/19 at 14:30; Stop 02/11/19 at 17:10; Status DC Docusate Sodium (Colace) 100 mg DAILY PO ; Start 02/11/19 at 14:30; Stop 02/11/19 at 17:10; Status DC Levetiracetam (Keppra) 500 mg DAILY PO Last administered on 02/12/19at 10:14; Start 02/11/19 at 14:30 Multivit/ Folic Acid/Iron (Multivitamin ) 1 tab DAILY PO ; Start 02/11/19 at 14:30; Stop 02/11/19 at 17:10; Status DC Magnesium Hydroxide (Milk Of Magnesia) 400 mg DAILY PO Last administered on 02/12/19at 10:13; Start 02/12/19 at 09:00 Non-Formulary Medication (Melatonin ) 1 tab QHS PO ; Start 02/11/19 at 21:00; Status UNV Polyethylene Glycol (miraLAX PACKET) 17 gm DAILY PO Last administered on 02/12/19at 10:15; Start 02/12/19 at 09:00 Potassium Chloride (Klor-Con) 20 meq DAILYWBKFT PO Last administered on 02/12/19at 10:15; Start 02/12/19 at 08:00 Sennosides (Senna) 8.6 mg BID PO Last administered on 02/12/19at 10:13; Start 02/11/19 at 21:00 Active Scripts Active Reported Senna (Sennosides) 8.6 Mg Tablet 8.6 Mg PO BID Potassium Chloride Oral Liquid (Potassium Chloride) 20 Meq/15 Ml Liquid 20 Meq PO DAILY Miralax (Polyethylene Glycol 3350) 17 Gm Powd.pack 1 Packet PO DAILY Milk Of Magnesia (Magnesium Hydroxide) 400 Mg/5 Ml Oral.susp 400 Mg PO DAILY Melatonin 3 Mg Tablet 1 Tab PO QHS Acetaminophen 325 Mg Tablet 650 Mg PO PRN Q4HRS PRN Ema Chewable (Aspirin) 81 Mg Tab.chew 81 Mg PO DAILY Keppra (Levetiracetam) 500 Mg Tablet 750 Mg PO BID Amlodipine Besylate 10 Mg Tablet 10 Mg PO DAILY Vitals/I & O Vital Sign - Last 24 Hours 02/11/19 02/11/19 02/11/19 02/11/19 11:30 12:00 12:30 13:40 Pulse 61 54 58 Resp 18 14 18 O2 Delivery Room Air 02/11/19 02/11/19 02/11/19 02/11/19 13:58 15:00 19:11 20:15 Temp 96.7 98.1 96.7 98.1 Pulse 60 55 58 Resp 14 16 18 B/P (MAP) 157/102 (120) 155/89 (111) 138/87 (104) Pulse Ox 99 94 98 O2 Delivery Room Air Room Air Room Air Room Air 02/11/19 02/12/19 02/12/19 02/12/19 23:56 03:28 07:00 10:14 Temp 97.7 98.0 98.1 97.7 98.0 98.1 Pulse 54 64 51 51 Resp 18 18 18 B/P (MAP) 134/88 (103) 106/61 (76) 148/89 (108) 148/89 Pulse Ox 98 98 97 O2 Delivery Room Air Room Air Room Air Intake and Output 02/11/19 02/11/19 02/12/19 14:59 22:59 06:59 Intake Total 500 ml 1030 ml Balance 500 ml 1030 ml HANK BRYANT MD February 12, 2019 11:12
--- NOTE | 2019-02-12 14:55 | NUR ---
Spoke with Dr. Dunne who ordered a 2nd CT without contrast, and if CT is negative then patient is okay to discharge per hospitalist to follow.
[2019-02-12 15:00] VITALS: BP 124/84
[2019-02-12 19:53] VITALS: BP 120/76
[2019-02-12 23:17] VITALS: BP 127/80
[2019-02-13 03:55] VITALS: BP 117/7
[2019-02-13 07:00] VITALS: BP 144/77
--- NOTE | 2019-02-13 07:59 | RAD ---
CT of the head without contrast, 02/12/2019: HISTORY: Altered mental status Comparison is made to a study from 02/11/2019. Postcraniotomy changes are again noted on the right. A right posterior parietal shunt tube crosses the midline extending into the anterior aspect of the left lateral ventricle. There is another tube or electrode extending into the right frontoparietal region along the lateral aspect of the falx. 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 There is encephalomalacia in the right frontotemporal region extending into the anterior aspect of the right basal ganglia. There are additional mild patchy lucencies in the deep white matter bilaterally compatible with chronic ischemic change. These findings are unchanged. No acute intracranial hemorrhage or mass effect is seen. IMPRESSION: 1. Chronic findings as described above. 2. No acute intracranial abnormality is detected. PQRS Compliance Statement: One or more of the following individualized dose reduction techniques were utilized for this examination: 1. Automated exposure control 2. Adjustment of the mA and/or kV according to patient size 3. Use of iterative reconstruction technique Electronically signed by: Phill Jiménez MD (02/13/2019 7:57 AM) [facility]
[2019-02-13] MEDS: POLYETHYLENE GLYCOL 3350 17 GM PACKET. PO SCH (09:00)
[2019-02-13] MEDS: MAGNESIUM HYDROXIDE 2,400 MG/30 ML ORAL.SUSP. PO SCH (09:00)
[2019-02-13] MEDS: levETIRAcetam 500 MG TABLET PO SCH (09:52)
[2019-02-13] MEDS: amLODIPine BESYLATE 10 MG TABLET PO SCH (09:54)
[2019-02-13] MEDS: ASPIRIN CHEWABLE 81 MG TABLET. PO SCH (09:54)
[2019-02-13] MEDS: POTASSIUM CHLORIDE 20 MEQ TABLET.ER. PO SCH (09:55)
[2019-02-13] MEDS: SENNOSIDES 8.6 MG TABLET PO SCH (09:56)
[2019-02-13 11:00] VITALS: BP 102/72
--- NOTE | 2019-02-13 11:38 | SNU/HH DC ---
DISCHARGE ORDERS DISCHARGE INFORMATION: DISCHARGE DATE: February 13, 2019 FINAL DIAGNOSIS Problems Medical Problems: (1) Altered level of consciousness Status: Acute (2) Dementia Status: Acute CONDITION ON DISCHARGE: Stable CODE STATUS: Code Status: Full MCC: SNF STAY <30 DAYS: Yes HOSPICE: HOSPICE: No HOSPICE EVAL & TREAT: No LTAC: ADMIT TO LTAC: No POST DISCHARGE ORDERS: ACTIVITY ORDERS: Resume previous activity WEIGHT BEARING STATUS: As tolerated DIET AFTER DISCHARGE: dysphagia diet CHECKS AFTER DISCHARGE: CHECKS AFTER DISCHARGE: Check blood press - daily, Check blood sugar, ac/hs FOLLOW-UP: PHYSICIAN FOLLOW-UP: pcp as scheduled- no change in meds, infectious and CVA work up is neg TREATMENT/EQUIPMENT ORDERS: Physical Therapy For: Evalulation/Treatment Occupational Therapy For: Evaluation/Treatment Speech Language Pathology For: Evaluation/Treatment DISCHARGE MEDICATIONS: Home Meds Reported Medications Sennosides (SENNA) 8.6 Mg Tablet, 8.6 MG PO BID for CONSTIPATION, #2 TAB 02/11/19 Potassium Chloride (POTASSIUM CHLORIDE ORAL LIQUID) 20 Meq/15 Ml Liquid, 20 MEQ PO DAILY for HYPOKALEMIA, LIQUID 02/11/19 Polyethylene Glycol 3350 (MIRALAX) 17 Gm Powd.pack, 1 PACKET PO DAILY for CONSTIPATION, #30 PACKET 3 Refills 02/11/19 Magnesium Hydroxide (MILK OF MAGNESIA) 400 Mg/5 Ml Oral.susp, 400 MG PO DAILY for CONSTIPATION, MISC 02/11/19 Melatonin (MELATONIN) 3 Mg Tablet, 1 TAB PO QHS for INSOMNIA, #30 TAB 1 Refill 02/11/19 Acetaminophen (ACETAMINOPHEN) 325 Mg Tablet, 650 MG PO PRN Q4HRS PRN for UNKNOWN 12/03/13 Aspirin (GEORGE CHEWABLE) 81 Mg Tab.chew, 81 MG PO DAILY for UNKNOWN, TAB.CHEW 12/03/13 Levetiracetam (KEPPRA) 500 Mg Tablet, 750 MG PO BID for SEIZURE 12/03/13 Amlodipine Besylate (AMLODIPINE BESYLATE) 10 Mg Tablet, 10 MG PO DAILY for UNKN OWN 12/03/13 HANK BRYANT MD February 13, 2019 11:38
--- NOTE | 2019-02-13 11:42 | PDOC3 ---
Discharge Summary Visit Information Date of Admission: February 11, 2019 Date of Discharge: February 13, 2019 Admitting Diagnosis Comment: Met encephalopathy, normal TSH, no infectious process, and negative CT scan head 2 SNU resident Alzheimer's type dementia Hypertension, controlled SZ on keppra Final Diagnosis Problems Medical Problems: (1) Altered level of consciousness Status: Acute (2) Dementia Status: Acute Brief Hospital Course Allergies Allergies Coded Allergies Type Severity Reaction Last Updated Verified No Known Drug Allergies 01/07/14 No Vital Signs Vital Signs Date Time Temp Pulse Resp B/P (MAP) Pulse Ox O2 Delivery O2 Flow Rate FiO2 02/13/19 11:00 98.1 63 16 102/72 (82) 96 Room Air 98.1 Lab Results Laboratory Tests Test 02/11/19 11:42 02/11/19 16:38 02/11/19 21:39 02/12/19 08:38 Urine Collection Type U cath Urine Color Yellow Urine Clarity Clear Urine pH 7.0 Urine Specific [place] 1.010 Urine Protein Negative mg/dL (NEG-TRACE) Urine Glucose (UA) Negative mg/dL (NEG) Urine Ketones (Stick) Negative mg/dL (NEG) Urine Blood Negative (NEG) Urine Nitrite Negative (NEG) Urine Bilirubin Negative (NEG) Urine Urobilinogen Dipstick 1.0 mg/dL (0.2 mg/dL) Urine Leukocyte Esterase Negative (NEG) Urine RBC 1-2 /HPF (0-2) Urine WBC 0 /HPF (0-4) Urine Squamous Epithelial Cells Few /LPF Urine Amorphous Sediment Present /HPF Urine Bacteria 0 /HPF (0-FEW) Glucose (Fingerstick) 78 mg/dL (70-99) 95 mg/dL (70-99) 85 mg/dL (70-99) Test 02/12/19 17:24 02/12/19 20:20 02/13/19 07:42 Glucose (Fingerstick) 119 mg/dL (70-99) 119 mg/dL (70-99) 98 mg/dL (70-99) Laboratory Tests Test 02/12/19 17:24 02/12/19 20:20 02/13/19 07:42 Glucose (Fingerstick) 119 mg/dL (70-99) 119 mg/dL (70-99) 98 mg/dL (70-99) Brief Hospital Course Ms. Kumar is a 84 old Citizen Of [place] Citizen [place] female SNU resident brought in because in change in mental status. Reported to be at baseline, talkative and oriented to self but she was just moaning to me throughout 2 or 3 days of my care. Infectious and CVA workup all negative. ESR , B12, TSH all normal. Daughter says is her baseline. Back to SNU today with no change in meds Full code on chart Discharge Information Condition at Discharge: Improved, Stable Disposition/Orders: Other (snu) Scheduled Amlodipine Besylate (Amlodipine Besylate) 10 Mg Tablet, 10 MG PO DAILY for UNKNOWN, (Reported) Entered as Reported by: RODRIGO LOW on 12/03/132320 Last Action: Edited on 02/11/191501 by WILMER WHITEHEAD Aspirin (Ema Chewable) 81 Mg Tab.chew, 81 MG PO DAILY for UNKNOWN, (Reported) Entered as Reported by: RODRIGO LOW on 12/03/132320 Last Action: Edited on 02/11/191501 by WILMER WHITEHEAD Levetiracetam (Keppra) 500 Mg Tablet, 750 MG PO BID for SEIZURE, (Reported) Entered as Reported by: RODRIGO LOW on 12/03/132320 Last Action: Edited on 02/11/191501 by WILMER WHITEHEAD Magnesium Hydroxide (Milk Of Magnesia) 400 Mg/5 Ml Oral.susp, 400 MG PO DAILY for CONSTIPATION, (Reported) Entered as Reported by: WILMER WHITEHEAD on 02/11/191512 Last Taken: Unknown Dose on 02/11/19 Last Action: Continued on 02/11/191711 by WILMER WHITEHEAD Melatonin (Melatonin) 3 Mg Tablet, 1 TAB PO QHS for INSOMNIA, #30 Ref 1 (Reported) Entered as Reported by: WILMER WHITEHEAD on 02/11/191512 Last Taken: Unknown Dose on 02/11/19 Last Action: Converted on 02/11/191711 by WILMER WHITEHEAD Polyethylene Glycol 3350 (Miralax) 17 Gm Powd.pack, 1 PACKET PO DAILY for CONSTIPATION, #30 Ref 3 (Reported) Entered as Reported by: WILMER WHITEHEAD on 02/11/191512 Last Taken: Unknown Dose on 02/11/19 Last Action: Converted on 02/11/191711 by WILMER WHITEHEAD Potassium Chloride (Potassium Chloride Oral Liquid) 20 Meq/15 Ml Liquid, 20 MEQ PO DAILY for HYPOKALEMIA, (Reported) Entered as Reported by: WILMER WHITEHEAD on 02/11/191512 Last Taken: Unknown Dose on 02/11/19 Last Action: Converted on 02/11/191711 by WILMER WHITEHEAD Sennosides (Senna) 8.6 Mg Tablet, 8.6 MG PO BID for CONSTIPATION, #2 (Reported) Entered as Reported by: WILMER WHITEHEAD on 02/11/191512 Last Taken: Unknown Dose on 02/11/19 Last Action: Converted on 02/11/191711 by WILMER WHITEHEAD Scheduled PRN Acetaminophen (Acetaminophen) 325 Mg Tablet, 650 MG PO PRN Q4HRS PRN for UNKNOWN, (Reported) Entered as Reported by: RODRIGO LOW on 12/03/13 9105 Last Action: Edited on 02/11/19 150 by HANK STATON MD February 13, 2019 11:42
--- NOTE | 2019-02-13 13:23 | PDOC ---
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 She has had 2 head [address]s. Okay to discharge back to retirement Follow-up with neurology as needed Subjective No complaints Objective Vital Signs Date Time Temp Pulse Resp B/P (MAP) Pulse Ox O2 Delivery O2 Flow Rate FiO2 02/13/19 11:00 98.1 63 16 102/72 (82) 96 Room Air 98.1 Intake and Output 02/13/19 07:00 Intake Total 380 ml Balance 380 ml Intake Oral 380 ml # Voids 5 # Bowel Movements 1 PHYSICAL EXAM Alert. Oriented to person, knows that she is in the hospital, does not know its name, does not know the date. PERRL. EOMI. CN: no focal findings. Muscle tone: normal. Muscle strength: 4/5 DTR: 1+ Bilateral grasp reflexes Plantar reflex: flexor Gait: not examined in bed. Sensory exam: no abnormal findings. No cerebellar signs elicited. Review of Relevant I have reviewed the following items beau (where applicable) has been applied. Labs Laboratory Tests Test 02/11/19 16:38 02/11/19 21:39 02/12/19 08:38 02/12/19 17:24 Glucose (Fingerstick) 78 mg/dL (70-99) 95 mg/dL (70-99) 85 mg/dL (70-99) 119 mg/dL (70-99) Test 02/12/19 20:20 02/13/19 07:42 02/13/19 11:42 Glucose (Fingerstick) 119 mg/dL (70-99) 98 mg/dL (70-99) 268 mg/dL (70-99) Laboratory Tests Test 02/12/19 17:24 02/12/19 20:20 02/13/19 07:42 02/13/19 11:42 Glucose (Fingerstick) 119 mg/dL (70-99) 119 mg/dL (70-99) 98 mg/dL (70-99) 268 mg/dL (70-99) Microbiology 02/11/19 Blood Culture - Preliminary, Resulted NO GROWTH AFTER 1 DAY Medications Current Medications Sodium Chloride 500 ml @ 500 mls/hr 1X ONCE IV Last administered on 02/11/19at 12:15; Start 02/11/19 at 12:15; Stop 02/11/19 at 13:14; Status DC Sodium Chloride 1,000 ml @ 100 mls/hr Q10H IV Last administered on 02/12/19at 07:06; Start 02/11/19 at 13:04; Stop 02/12/19 at 13:03; Status DC Acetaminophen (Tylenol) 500 mg PRN Q6HRS PRN PO MILD PAIN / TEMP; Start 02/11/19 at 13:30 Ondansetron HCl (Zofran) 4 mg PRN Q6HRS PRN IV NAUSEA/VOMITING; Start 02/11/19 at 13:30 Acetaminophen (Tylenol) 325 mg BID PO ; Start 02/11/19 at 14:30; Stop 02/11/19 at 17:10; Status DC Amlodipine Besylate (Norvasc) 10 mg DAILY PO Last administered on 02/13/19at 09:54; Start 02/11/19 at 14:30 Aspirin (Children'S Aspirin) 81 mg DAILY PO Last administered on 02/13/19at 09:54; Start 02/11/19 at 14:30 Carvedilol (Coreg) 6.25 mg BIDWMEALS PO ; Start 02/11/19 at 17:00; Stop 02/11/19 at 17:10; Status DC Clonidine HCl (Catapres) 0.1 mg BID PO ; Start 02/11/19 at 14:30; Stop 02/11/19 at 17:10; Status DC Docusate Sodium (Colace) 100 mg DAILY PO ; Start 02/11/19 at 14:30; Stop 02/11/19 at 17:10; Status DC Levetiracetam (Keppra) 500 mg DAILY PO Last administered on 02/13/19at 09:52; Start 02/11/19 at 14:30 Multivit/ Folic Acid/Iron (Multivitamin ) 1 tab DAILY PO ; Start 02/11/19 at 14:30; Stop 02/11/19 at 17:10; Status DC Magnesium Hydroxide (Milk Of Magnesia) 400 mg DAILY PO Last administered on 02/12/19at 10:13; Start 02/12/19 at 09:00 Non-Formulary Medication (Melatonin ) 1 tab QHS PO ; Start 02/11/19 at 21:00; Status UNV Polyethylene Glycol (miraLAX PACKET) 17 gm DAILY PO Last administered on at 10:15; Start 02/12/19 at 09:00 Potassium Chloride (Klor-Con) 20 meq DAILYWBKFT PO Last administered on 02/13/19at 09:55; Start 02/12/19 at 08:00 Sennosides (Senna) 8.6 mg BID PO Last administered on 02/13/19at 09:56; Start 02/11/19 at 21:00 Active Scripts Active Reported Senna (Sennosides) 8.6 Mg Tablet 8.6 Mg PO BID Potassium Chloride Oral Liquid (Potassium Chloride) 20 Meq/15 Ml Liquid 20 Meq PO DAILY Miralax (Polyethylene Glycol 3350) 17 Gm Powd.pack 1 Packet PO DAILY Milk Of Magnesia (Magnesium Hydroxide) 400 Mg/5 Ml Oral.susp 400 Mg PO DAILY Melatonin 3 Mg Tablet 1 Tab PO QHS Acetaminophen 325 Mg Tablet 650 Mg PO PRN Q4HRS PRN Ema Chewable (Aspirin) 81 Mg Tab.chew 81 Mg PO DAILY Keppra (Levetiracetam) 500 Mg Tablet 750 Mg PO BID Amlodipine Besylate 10 Mg Tablet 10 Mg PO DAILY Vitals/I & O Vital Sign - Last 24 Hours 02/12/19 02/12/19 02/12/19 02/12/19 15:00 19:53 20:00 23:17 Temp 97.9 98.8 98.6 97.9 98.8 98.6 Pulse 63 72 58 Resp 16 16 16 B/P (MAP) 124/84 (97) 120/76 (91) 127/80 (96) Pulse Ox 96 97 93 O2 Delivery Room Air Room Air Room Air Room Air 02/13/19 02/13/19 02/13/19 02/13/19 03:55 07:00 08:00 09:54 Temp 98.2 98.7 98.2 98.7 Pulse 55 54 54 Resp 16 16 B/P (MAP) 117/7 (43) 144/77 (99) 144/77 Pulse Ox 97 98 O2 Delivery Room Air Room Air Room Air 02/13/19 11:00 Temp 98.1 98.1 Pulse 63 Resp 16 B/P (MAP) 102/72 (82) Pulse Ox 96 O2 Delivery Room Air Intake and Output 02/12/19 02/12/19 02/13/19 15:00 23:00 07:00 Intake Total 180 ml 100 ml 100 ml Balance 180 ml 100 ml [address] HEAD WO CONTRAST, 02/11 Ventricular shunt catheter is apparent. It is unchanged in position. There is another catheter seen extending through the posterior right parietal vertex area into the midline falx cerebri superior to the right lateral ventricle. This was seen previously and is unchanged. No acute intracranial hemorrhage or midline shift or mass-effect or hydrocephalus or extra-axial fluid collection is seen. Again seen is encephalomalacia of the right anterior parietal and posterior frontal area and head of the caudate nucleus including the anterior limb of internal capsule on the right side due to an old infarct. Again seen is encephalomalacia of the posterior left parietal region of the left temporal region due to an old cortical infarct.. No skull fracture or pneumocephalus is seen. No opacification of the mastoid sinuses or the paranasal sinuses is seen. The maxillary sinuses are not completely seen in this study. CT of the head without contrast, 02/12/2019: Postcraniotomy changes are again noted on the right. A right posterior parietal shunt tube crosses the midline extending into the anterior aspect of the left lateral ventricle. There is another tube or electrode extending into the right frontoparietal region along the lateral aspect of the falx. 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 There is encephalomalacia in the right frontotemporal region extending into the anterior aspect of the right basal ganglia. There are additional mild patchy lucencies in the deep white matter bilaterally compatible with chronic ischemic change. These findings are unchanged. No acute intracranial hemorrhage or mass effect is seen. IMPRESSION: 1. Chronic findings as described above. 2. No acute intracranial abnormality is detected. Impression: No acute intracranial abnormality is seen. Old infarcts. Stable ventricular system with ventricular shunt catheter in place. JASE RENAE MD February 13, 2019 13:22
[2019-02-13 15:00] VITALS: BP 99/70
--- NOTE | 2019-02-13 15:57 | NUR ---
SW following pt for anticipated dc needs. Chart reviewed and DW RN. JUDE confirmed with Eliane at [facility] Pt is LTC resident and plan of return upon dc.
--- NOTE | 2019-02-13 16:07 | NUR ---
SW following pt. SW phoned and faxed orders to [facility]. SW attempted to reach family but phone was incorrect. Pt will transport via facility arranged w/c van between [phone]. RN notified and packet on chart.
[2019-02-13] MEDS ORDERED: levETIRAcetam 250 MG TABLET PO SCH (21:00)
== END 2019-02-13 18:04 | disposition home or self-care (01) | DRG 72 ==
LOC: ER 09:46 → 6 SOUTH 12:18
PROVIDERS: ADMIT Internal Medicine; ATTEND Internal Medicine
DX: G93.41 Metabolic encephalopathy (principal); E11.9 Type 2 diabetes mellitus without complications; G40.909 Epilepsy, unspecified, not intractable, without status epilepticus; F02.80 Dementia in other diseases classified elsewhere, unspecified severity, without behavioral disturbance, psychotic disturbance, mood disturbance, and anxiety; G30.9 Alzheimer's disease, unspecified; G47.00 Insomnia, unspecified; I10 Essential (primary) hypertension; K59.00 Constipation, unspecified; Z79.4 Long term (current) use of insulin; Z79.899 Other long term (current) drug therapy; Z86.73 Personal history of transient ischemic attack (TIA), and cerebral infarction without residual deficits; Z98.2 Presence of cerebrospinal fluid drainage device
CPT/HCPCS: 36415; 70450; 71045; 80053; 80177; 81001; 82550; 82607; 82962; 83605; 83690; 83735; 83880; 84443; 84484; 85025; 85651; 87040; 93005; J7030; J7040; 92610; 99285-25

== ENCOUNTER 2019-12-30 00:30 | Inpatient (IN) | payer MEDICARE, OTHER ==
[~2019-12-30] VITALS: Ht 162.6 cm; Wt 69.3 kg
[2019-12-30] VITALS (21 sets, daily range): BP systolic 82–140; BP diastolic 59–97
[~2019-12-30 00:30] MED LIST changes: +MAGN400O7 PO; +MELA3TAB4 PO; +POLY17PO29 PO; +POTA20LI2 PO; +SENN-80 PO; +SPIR25TA5 PO
[2019-12-30 00:49] LABS: BASE EXCESS ABG 5 mmol/L (-3-3); CORRECTED PCO2 ABG 38 mmHg; CORRECTED PH ABG 7.49; CORRECTED PO2 ABG 58 mmHg; HCO3 ABG 28 mmol/L (21-28); PCO2 ABG 37 mmHg (35-46); PO2 ABG 54 mmHg (65-108); SAT O2 ABG 90 % (92-99)
[2019-12-30 01:08] LABS: FIO2 ABG 100
--- NOTE | 2019-12-30 01:23 | PHYS DOC ---
Past Medical History Past Medical History: Constipation, CVA, Dementia, Diabetes-Type I, Seizure Additional Past Medical Histor: ALZHEIMERS, DYSPHAGIA WITH PUREED DIET Past Surgical History: Other Additional Past Surgical Histo: unknown, ventriculoperitoneal shunt placement Smoking Status: Former Smoker Alcohol Use: None Drug Use: None General Adult EDM: Chief Complaint: DYSPNEA/RESPIRATOY DISTRESS HPI: HPI: 84-year-old female family history of CVA, hypertension, diabetes, dementia presents to the emergency department with complaints of respiratory distress. Patient is a resident of [place], roommate is positive for CO VID, patient is been tested twice of which is been negative however she presents tonight with fever 102 rectally, tachypnea with respiratory rate in the 40s, saturations on 15 L of 88 to 90%. Patient is moving all of her extremities however does not follow commands on examination. Unable to complete reviews of systems. Call placed to patient's daughter Ms. Abarca, phone number [phone], discu ssed intubation, resuscitative efforts. At this time, daughter would like to proceed further with work-up however would defer intubation at this time. If in fact that time patient is decompensated or is requiring more respiratory support decision will be made to go further with efforts of resuscitation versus not. Review of Systems: Review of Systems: Complete reviews of systems unable to be obtained secondary to patient's mental status Heart Score: Risk Factors: Risk Factors: DM, Current or recent (<one month) smoker, HTN, HLP, family history of CAD, obesity. Risk Scores: Score 0 - 3: 2.5% MACE over next 6 weeks - Discharge Home Score 4 - 6: 20.3% MACE over next 6 weeks - Admit for Clinical Observation Score 7 - 10: 72.7% MACE over next 6 weeks - Early Invasive Strategies Current Medications: Current Medications Medications (Trade) Dose Ordered Sig/Akiko Start Time Stop Time Status Last Admin Dose Admin Acetaminophen (Tylenol Supp) 650 mg 1X ONCE 12/30/19 01:15 12/30/19 01:16 UNV Allergies: Allergies: Allergies Coded Allergies Type Severity Reaction Last Updated Verified No Known Drug Allergies 01/07/14 No Physical Exam: PE: Constitutional: Well developed, well nourished, moderate respiratory distress, non-toxic appearance. [] Cardiovascular: Tachycardia Lungs & Thorax: Decreased breath sounds appreciated bilaterally, tachypnea, crackles Abdomen: Bowel sounds normal, soft, no tenderness, no masses, no pulsatile he s. [] Skin: Warm, dry, no erythema, no rash. [] Back: No tenderness, no CVA tenderness. [] Extremities: No tenderness, no edema. [] Neurologic: Alert, does not follow commands, moves extremities. Baseline according to daughter. [] Current Patient Data: Labs: Laboratory Tests Test 12/30/19 00:45 O2 Saturation 90 % (92-99) L Arterial Blood pH 7.50 (7.35-7.45) H Arterial Blood pH (Temp corrected) 7.49 Arterial Blood pCO2 at Patient Temp 37 mmHg (35-46) Arterial Blood pCO2 (Temp correct) 38 mmHg Arterial Blood pO2 at Patient Temp 54 mmHg (65-108) L Arterial Blood pO2 (Temp corrected) 58 mmHg Arterial Blood HCO3 28 mmol/L (21-28) Arterial Blood Base Excess 5 mmol/L (-3-3) H FiO2 100 EKG: EKG: [] Radiology/Procedures: Radiology/Procedures: [] Course & Med Decision Making: Course & Med Decision Making Pertinent Labs and Imaging studies reviewed. (See chart for details) []84-year-old female family history of CVA, hypertension, diabetes, dementia presents to the emergency department with complaints of respiratory distress. Patient is a resident of [place], roommate is positive for COVID, patient has been tested twice of which is been negative however she presents tonight with fever 102 rectally, tachypnea with respiratory rate in the 40s, saturations on 1 5 L of 88 to 90%. Patient is moving all of her extremities however does not follow commands on examination. Unable to complete reviews of systems. Call placed to patient's daughter Ms. Abarca, phone number [phone], discussed intubation, resuscitative efforts. At this time, daughter would like to proceed further with work-up however would defer intubation at this time. Wi ll reevaluate after work-up is complete prior to admission. If in fact that time patient is decompensated or is requiring more respiratory support decision will be made to go further with efforts of resuscitation versus not. Reevaluation with patient's daughter - patient remains with tachypnea, saturations high 80's to 90's on 15 L NRB. ABG as reviewed. Xray revelas evidence of bilateral consolidation - she would like to proceed with full resuscitative efforts Cultures obtained and labs reviewed Hypernatremia 153, potassium 2.7, chloride 113 - D5w with 20k at 75ml/hr, BS 422 - 10 units sq of insulin Abx (vancomycin, Levaquin) Patient will be admitted with suspected COVID and resp failure Heparin gtt initiated given elevated troponin, likely 2/2 resp distress and demand ischemia Indication: Indication: Respiratory failure Consent: Unable to give consent due to emergent nature. Medications Used: see nursing note Procedure: The patient was placed in the appropriate position. Intubation was performed glidescope, 7.5 ETT endotracheal tube. 23 at the gum. Initial confirmation of placement included bilateral breath sounds, tube fogging, adequate chest rise, adequate pulse oximetry reading. A chest x-ray to verify correct placement of the tube showed appropriate tube position. The patient tolerated the procedure well. Complications: none. Dragon Disclaimer: Dragon Disclaimer: This electronic medical record was generated, in whole or in part, using a voice recognition dictation system. 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 Was carpentry professional a member of the P: No If suspected infection: Yes Central Line Indications: Long-term IV med use, Monitor CVP Maximal sterile barriers used: Mask, Sterile gown, Sterile gloves, Large sterile drape, Cap Skin Preperation: (Check all: Chlorhexidine gluconate Was skin prep dry at time of s: Yes Patient is less than 2 months: No Patient has documented/known a: No Facility restrictions/safety c: No Insertion Site: Jugular Antimicrobial catheter used?: No Central Line catheter type: Non-tunneled Did this insertion attempt res: No Departure Departure Impression: Primary Impression: Suspected 2019 novel coronavirus infection Additional Impressions: Acute respiratory failure Qualified Codes: J96.01 - Acute respiratory failure with hypoxia Hypernatremia Hypokalemia Uncontrolled diabetes mellitus Qualified Codes: E13.65 - Other specified diabetes mellitus with hyperglycemia Elevated troponin Disposition: ADMITTED INPATIENT Admitting Physician: HARRIS Condition: CRITICAL Referrals: MELODIE LEUNG DO (PCP) Critical Care Time Critical care time was 40 minutes exclusive of procedures. AYAKA NIX MD Dec 30, 2019 01:23
[2019-12-30 01:24] LABS: BASO % 1 % (0-3); EOS % 0 % (0-3); HEMATOCRIT 42.5 % (36.0-47.0); HEMOGLOBIN 13.6 g/dL (12.0-15.5); LYMPH % 13 % (24-48); MEAN CORPUSCULAR HEMOGLOBIN 29 pg (25-35); MEAN CORPUSCULAR HGB CONC 32 g/dL (31-37); MEAN CORPUSCULAR VOLUME 91 fL (79-100); MONO # 0.3 x10^3/uL (0.0-1.1); MONO % 4 % (0-9); NEUT % 83 % (31-73); PLATELET COUNT 192 x10^3/uL (140-400); RED BLOOD COUNT 4.65 x10^6/uL (3.50-5.40); RED CELL DISTRIBUTION WIDTH 14.1 % (11.5-14.5); WHITE BLOOD COUNT 7.3 x10^3/uL (4.0-11.0)
[2019-12-30] MEDS ORDERED: ACETAMINOPHEN 650 MG SUPP.RECT. PR ONE (01:30)
[2019-12-30 01:35] LABS: ALBUMIN 2.6 g/dL (3.4-5.0); ALBUMIN/GLOBULIN RATIO 0.5 (1.0-1.7); CALCIUM 8.8 mg/dL (8.5-10.1); GFR 63.6; TOTAL BILIRUBIN 0.5 mg/dL (0.2-1.0); TOTAL PROTEIN 7.4 g/dL (6.4-8.2)
[2019-12-30 01:39] LABS: BILIRUBIN,URINE NEGATIVE (NEG); CLARITY,URINE CLOUDY; COLOR,URINE YELLOW; NITRITE,URINE NEGATIVE (NEG); PROTEIN,URINE >=300 mg/dL (NEG-TRACE)
[2019-12-30 01:46] LABS: POTASSIUM 2.7 mmol/L (3.5-5.1)
[2019-12-30 01:52] LABS: BACTERIA,URINE MANY /HPF (0-FEW); RBC,URINE 20-40 /HPF (0-2); WBC,URINE TNTC /HPF (0-4)
[2019-12-30 01:53] LABS: GRANULAR CASTS,URINE FEW /HPF; HYALINE CASTS, URINE OCCASIONAL /HPF; SQUAMOUS EPITHELIAL CELL,UR FEW /LPF
[2019-12-30 01:55] LABS: INFLUENZA A PATIENT NEGATIVE (NEGATIVE); INFLUENZA B PATIENT NEGATIVE (NEGATIVE)
[2019-12-30] MEDS ORDERED: HEPARIN for IV BOLUS 10,000 UNIT/10 ML VIAL. IV PRN (02:00)
[2019-12-30] MEDS ORDERED: HEPARIN 25,000UTS/250ML PREMIX 250 ML IV PRN (02:00)
[2019-12-30] MEDS ORDERED: POTASSIUM CHLORIDE 20MEQ 100 ML IV ONE (02:00)
[2019-12-30 02:09] LABS: PROTHROMBIN TIME PATIENT 12.4 SEC (11.7-14.0)
[2019-12-30] MEDS ORDERED: ANTI-COAG MONITOR BY PHARMACY. MC PRN (02:15)
[2019-12-30] MEDS ORDERED: HEPARIN for IV BOLUS 10,000 UNIT/10 ML VIAL. IV ONE (02:30)
[2019-12-30] MEDS ORDERED: INSULIN LISPRO 300 UNITS/3 ML VIAL. SQ ONE (02:30)
[2019-12-30] MEDS ORDERED: POTASSIUM CL 20MEQ IN D5W 1,000 ML IV ONE (02:30)
--- NOTE | 2019-12-30 02:52 | EKG ---
[facility] [address] [place] [address] Test Date: 2019-12-30 Test Time: 01:52:32 Pat Name: ALAN LEE Department: Room: Gender: F Holistic Pulser: : 1935 Requested By: AYAKA NIX Order Number: [id number] Reading MD: Andrzej Holt MD Measurements Intervals [place] Rate: 95 P: 0 SD: 158 QRS: -48 QRSD: 94 T: 109 QT: 392 QTc: 496 Interpretive Statements SINUS RHYTHM ABNORMAL LEFT AXIS DEVIATION LEFT ANTERIOR FASCICULAR BLOCK LVH WITH REPOLARIZATION ABNORMALITY PROLONGED QT Electronically Signed On 12-31-2019 9:44:52 CDT by Andrzej Holt MD
[2019-12-30] MEDS ORDERED: VANCOMYCIN 1.75 GM in IV NORMAL SALINE 500ML BAG 500 ML IV ONE (03:00)
--- NOTE | 2019-12-30 03:03 | RAD ---
EXAM: AP View of the chest DATE: 12/30/2019 1:29 AM INDICATION: Shortness of breath COMPARISON: 11/06/2019 FINDINGS: The heart is not enlarged. Aorta is tortuous. Retrocardiac density likely small hiatal hernia. Right IJ vascular catheter projects over the right atrium. Diffuse bilateral airspace opacities, particularly in the left mid and lower lung peripheral right lung. No pleural effusion or pneumothorax. IMPRESSION: 1. Bilateral airspace opacities, nonspecific may represent consolidative process such as pneumonia or atypical infectious or inflammatory process. 2. Right IJ vascular catheter tip projects right atrium. Electronically signed by: Durga Neely MD (12/30/2019 3:00 AM) NATALIE
[2019-12-30] MEDS ORDERED: MIDAZOLAM HCL 50 MG in IV NORMAL SALINE 50ML 50 ML IV ONE (03:30)
[2019-12-30] MEDS ORDERED: MIDAZOLAM PREMIX 100 MG/100 ML NS BAG. IV ONE (03:34)
[2019-12-30] MEDS ORDERED: MIDAZOLAM HCL 100 MG in IV NORMAL SALINE 100ML 100 ML IV ONE (04:00)
[2019-12-30] MEDS ORDERED: ONDANSETRON PF 4 MG/2 ML VIAL. IV PRN ×2 (04:15→12:15)
[2019-12-30] MEDS ORDERED: fentaNYL PF VIAL 100 MCG/2 ML VIAL IV PRN (04:15)
[2019-12-30] MEDS ORDERED: DEXTROSE 50% 25 GM / 50ML DISP.SYRIN. IV PRN (04:15)
[2019-12-30] MEDS: POTASSIUM CHLORIDE 10MEQ 100 ML IV SCH ×2 (04:21→05:28)
--- NOTE | 2019-12-30 04:32 | RAD ---
EXAM: AP View of the chest DATE: 12/30/2019 3:47 AM INDICATION: Intubation, lines dyspnea COMPARISON: 12/30/2019 FINDINGS/ IMPRESSION: ET tube is seen approximately 2 cm above the radha. Enteric tube tip terminates over the body of the stomach. Right IJ vascular catheter tips project over the distal SVC/right atrium. Aorta is tortuous. Interval increase in right upper lung airspace opacities. Bilateral mid lung and left lower lung airspace opacities are grossly unchanged. No pleural effusion or pneumothorax. Electronically signed by: Durga Neely MD (12/30/2019 4:29 AM) NATALIE
[2019-12-30 04:42] LABS: BASE EXCESS ABG 1 mmol/L (-3-3); CORRECTED PCO2 ABG 43 mmHg; CORRECTED PH ABG 7.39; CORRECTED PO2 ABG 101 mmHg; HCO3 ABG 26 mmol/L (21-28); PCO2 ABG 41 mmHg (35-46); PO2 ABG 93 mmHg (65-108)
[2019-12-30] MEDS: VANCOMYCIN PER PHARMACY MC PRN (04:42)
[2019-12-30 04:43] LABS: FIO2 ABG 100; SAT O2 ABG 100 % (92-99)
--- NOTE | 2019-12-30 04:43 | NUR ---
Pharmacy Vancomycin Dosing Note S:Consulted to monitor and dose vancomycin started 12/30/19. O:ALAN LEE is a 84 year old F with HCAP . Height: 5 feet, 4 inches Weight: 68.2 kg [place] Body Weight: 54.70 Adjusted Body Weight: 60.10 Dosing Weight: Actual Other Antibiotics: LEVOFLOXACIN X1 ED LABS: Last BUN: 15 Last Creatinine: 1 Creatinine Clearance: 38 mL/min Last WBC: 7.3 Last Procalcitonin: Tmax (past 24 hours): Microbiology: I/O: Drug Levels: Last level: on at Last dose given 12/30/19 at 0230 Vancomycin Dosing: Loading Dose: 1750 mg x1 Dosing Weight: Actual Target Trough: 15-20 A: Based on: WT AND CRCL P: 1. Begin Vancomycin 1000 mg IV q24h 2. Follow up Trough level on 01/01/20 at 0230 3. Pharmacy will continue to monitor, follow and adjust therapy as needed. MARIAH FAULKNER RPH, 12/30/193 Signed: 12/30/19 at 0443 by MARIAH FAULKNER RPH PHA Signed: 12/30/19 at 0443 by MARIAH FAULKNER RPH PHA
[2019-12-30] MEDS ORDERED: NOREPINEPHRINE VIAL 8 MG in IV DEXTROSE 5% 250 ML IV ONE (05:00)
[2019-12-30] MEDS ORDERED: ROCURONIUM 50 MG/5 ML VIAL. ONE (05:27)
[2019-12-30] MEDS ORDERED: ETOMIDATE 20 MG/10 ML VIAL. IV ONE (05:27)
--- NOTE | 2019-12-30 05:30 | NUR ---
Pt admitted to room 114 via stretcher from the ED with 2 nurses and RT. Pt transferred to ICU bed and placed on monitor equipment and vent. PT is in SR, torres to Dependent drainage. Right IJ central line patent with drips infusing. See admission and assessment for further details.
[2019-12-30] MEDS: INSULIN LISPRO 300 UNITS/3 ML VIAL. SQ SCH ×4 (08:00→23:37)
[2019-12-30] MEDS: CHLORHEXIDINE 0.12% 15 ML MOUTHWASH. MM SCH ×2 (09:00→21:25)
--- NOTE | 2019-12-30 10:47 | PDOC ---
PULMONARY PROGRESS NOTES Vitals Vital Signs Date Time Temp Pulse Resp B/P (MAP) Pulse Ox O2 Delivery O2 Flow Rate FiO2 12/30/19 10:00 92 18 112/75 (87) 99 Ventilator 12/30/19 08:00 100.0 100.0 12/30/19 03:26 15.0 Lungs: Clear Cardiovascular: S1, S2 Labs Laboratory Tests Test 12/30/19 00:45 12/30/19 00:50 12/30/19 01:30 12/30/19 04:30 O2 Saturation 90 % (92-99) 100 % (92-99) Arterial Blood pH 7.50 (7.35-7.45) 7.41 (7.35-7.45) Arterial Blood pH (Temp corrected) 7.49 7.39 Arterial Blood pCO2 at Patient Temp 37 mmHg (35-46) 41 mmHg (35-46) Arterial Blood pCO2 (Temp correct) 38 mmHg 43 mmHg Arterial Blood pO2 at Patient Temp 54 mmHg (65-108) 93 mmHg (65-108) Arterial Blood pO2 (Temp corrected) 58 mmHg 101 mmHg Arterial Blood HCO3 28 mmol/L (21-28) 26 mmol/L (21-28) Arterial Blood Base Excess 5 mmol/L (-3-3) 1 mmol/L (-3-3) FiO2 100 100 White Blood Count 7.3 x10^3/uL (4.0-11.0) Red Blood Count 4.65 x10^6/uL (3.50-5.40) Hemoglobin 13.6 g/dL (12.0-15.5) Hematocrit 42.5 % (36.0-47.0) Mean Corpuscular Volume 91 fL (79-100) Mean Corpuscular Hemoglobin 29 pg (25-35) Mean Corpuscular Hemoglobin Concent 32 g/dL (31-37) Red Cell Distribution Width 14.1 % (11.5-14.5) Platelet Count 192 x10^3/uL (140-400) Neutrophils (%) (Auto) 83 % (31-73) Lymphocytes (%) (Auto) 13 % (24-48) Monocytes (%) (Auto) 4 % (0-9) Eosinophils (%) (Auto) 0 % (0-3) Basophils (%) (Auto) 1 % (0-3) Neutrophils # (Auto) 6.0 x10^3/uL (1.8-7.7) Lymphocytes # (Auto) 1.0 x10^3/uL (1.0-4.8) Monocytes # (Auto) 0.3 x10^3/uL (0.0-1.1) Eosinophils # (Auto) 0.0 x10^3/uL (0.0-0.7) Basophils # (Auto) 0.0 x10^3/uL (0.0-0.2) Sodium Level 153 mmol/L (136-145) Potassium Level 2.7 mmol/L (3.5-5.1) Chloride Level 113 mmol/L (98-107) Carbon Dioxide Level 28 mmol/L (21-32) Anion Gap 12 (6-14) Blood Urea Nitrogen 15 mg/dL (7-20) Creatinine 1.0 mg/dL (0.6-1.0) Estimated GFR (Cockcroft-Gault) 63.6 BUN/Creatinine Ratio 15 (6-20) Glucose Level 422 mg/dL (70-99) Lactic Acid Level 1.4 mmol/L (0.4-2.0) Calcium Level 8.8 mg/dL (8.5-10.1) Total Bilirubin 0.5 mg/dL (0.2-1.0) Aspartate Amino Transf (AST/SGOT) 38 U/L (15-37) Alanine Aminotransferase (ALT/SGPT) 31 U/L (14-59) Alkaline Phosphatase 101 U/L (46-116) Troponin I Quantitative 0.102 ng/mL (0.000-0.055) JK-Run-B-Type Natriuretic Peptide 755 pg/mL (0-449) Total Protein 7.4 g/dL (6.4-8.2) Albumin 2.6 g/dL (3.4-5.0) Albumin/Globulin Ratio 0.5 (1.0-1.7) Prothrombin Time 12.4 SEC (11.7-14.0) Prothromb Time International Ratio 1.0 (0.8-1.1) Urine Collection Type Unknown Urine Color Yellow Urine Clarity Cloudy Urine pH 6.0 (<5.0-8.0) Urine Specific [place] >=1.030 (1.000-1.030) Urine Protein >=300 mg/dL (NEG-TRACE) Urine Glucose (UA) >=1000 mg/dL (NEG) Urine Ketones (Stick) Negative mg/dL (NEG) Urine Blood Moderate (NEG) Urine Nitrite Negative (NEG) Urine Bilirubin Negative (NEG) Urine Urobilinogen Dipstick 1.0 mg/dL (0.2 mg/dL) Urine Leukocyte Esterase Small (NEG) Urine RBC 20-40 /HPF (0-2) Urine WBC Tntc /HPF (0-4) Urine Squamous Epithelial Cells Few /LPF Urine Renal Epithelial Cells Occ /LPF Urine Bacteria Many /HPF (0-FEW) Urine Hyaline Casts Occasional /HPF Urine Granular Casts Few /HPF Urine Mucus Mod /LPF Magnesium Level 1.9 mg/dL (1.8-2.4) Acetone Level Neg (NEG) Influenza Type A Antigen Negative (NEGATIVE) Influenza Type B Antigen Negative (NEGATIVE) Test 12/30/19 07:15 12/30/19 07:57 Troponin I Quantitative 0.079 ng/mL (0.000-0.055) Glucose (Fingerstick) 267 mg/dL (70-99) Laboratory Tests Test 12/30/19 00:45 12/30/19 00:50 12/30/19 01:30 12/30/19 04:30 O2 Saturation 90 % (92-99) 100 % (92-99) Arterial Blood pH 7.50 (7.35-7.45) 7.41 (7.35-7.45) Arterial Blood pH (Temp corrected) 7.49 7.39 Arterial Blood pCO2 at Patient Temp 37 mmHg (35-46) 41 mmHg (35-46) Arterial Blood pCO2 (Temp correct) 38 mmHg 43 mmHg Arterial Blood pO2 at Patient Temp 54 mmHg (65-108) 93 mmHg (65-108) Arterial Blood pO2 (Temp corrected) 58 mmHg 101 mmHg Arterial Blood HCO3 28 mmol/L (21-28) 26 mmol/L (21-28) Arterial Blood Base Excess 5 mmol/L (-3-3) 1 mmol/L (-3-3) FiO2 100 100 White Blood Count 7.3 x10^3/uL (4.0-11.0) Red Blood Count 4.65 x10^6/uL (3.50-5.40) Hemoglobin 13.6 g/dL (12.0-15.5) Hematocrit 42.5 % (36.0-47.0) Mean Corpuscular Volume 91 fL (79-100) Mean Corpuscular Hemoglobin 29 pg (25-35) Mean Corpuscular Hemoglobin Concent 32 g/dL (31-37) Red Cell Distribution Width 14.1 % (11.5-14.5) Platelet Count 192 x10^3/uL (140-400) Neutrophils (%) (Auto) 83 % (31-73) Lymphocytes (%) (Auto) 13 % (24-48) Monocytes (%) (Auto) 4 % (0-9) Eosinophils (%) (Auto) 0 % (0-3) Basophils (%) (Auto) 1 % (0-3) Neutrophils # (Auto) 6.0 x10^3/uL (1.8-7.7) Lymphocytes # (Auto) 1.0 x10^3/uL (1.0-4.8) Monocytes # (Auto) 0.3 x10^3/uL (0.0-1.1) Eosinophils # (Auto) 0.0 x10^3/uL (0.0-0.7) Basophils # (Auto) 0.0 x10^3/uL (0.0-0.2) Sodium Level 153 mmol/L (136-145) Potassium Level 2.7 mmol/L (3.5-5.1) Chloride Level 113 mmol/L (98-107) Carbon Dioxide Level 28 mmol/L (21-32) Anion Gap 12 (6-14) Blood Urea Nitrogen 15 mg/dL (7-20) Creatinine 1.0 mg/dL (0.6-1.0) Estimated GFR (Cockcroft-Gault) 63.6 BUN/Creatinine Ratio 15 (6-20) Glucose Level 422 mg/dL (70-99) Lactic Acid Level 1.4 mmol/L (0.4-2.0) Calcium Level 8.8 mg/dL (8.5-10.1) Total Bilirubin 0.5 mg/dL (0.2-1.0) Aspartate Amino Transf (AST/SGOT) 38 U/L (15-37) Alanine Aminotransferase (ALT/SGPT) 31 U/L (14-59) Alkaline Phosphatase 101 U/L (46-116) Troponin I Quantitative 0.102 ng/mL (0.000-0.055) BP-[place]-T-Type Natriuretic Peptide 755 pg/mL (0-449) Total Protein 7.4 g/dL (6.4-8.2) Albumin 2.6 g/dL (3.4-5.0) Albumin/Globulin Ratio 0.5 (1.0-1.7) Prothrombin Time 12.4 SEC (11.7-14.0) Prothromb Time International Ratio 1.0 (0.8-1.1) Urine Collection Type Unknown Urine Color Yellow Urine Clarity Cloudy Urine pH 6.0 (<5.0-8.0) Urine Specific [place] >=1.030 (1.000-1.030) Urine Protein >=300 mg/dL (NEG-TRACE) Urine Glucose (UA) >=1000 mg/dL (NEG) Urine Ketones (Stick) Negative mg/dL (NEG) Urine Blood Moderate (NEG) Urine Nitrite Negative (NEG) Urine Bilirubin Negative (NEG) Urine Urobilinogen Dipstick 1.0 mg/dL (0.2 mg/dL) Urine Leukocyte Esterase Small (NEG) Urine RBC 20-40 /HPF (0-2) Urine WBC Tntc /HPF (0-4) Urine Squamous Epithelial Cells Few /LPF Urine Renal Epithelial Cells Occ /LPF Urine Bacteria Many /HPF (0-FEW) Urine Hyaline Casts Occasional /HPF Urine Granular Casts Few /HPF Urine Mucus Mod /LPF Magnesium Level 1.9 mg/dL (1.8-2.4) Acetone Level Neg (NEG) Influenza Type A Antigen Negative (NEGATIVE) Influenza Type B Antigen Negative (NEGATIVE) Test 12/30/19 07:15 12/30/19 07:57 Troponin I Quantitative 0.079 ng/mL (0.000-0.055) Glucose (Fingerstick) 267 mg/dL (70-99) Medications Active Scripts Medications Dose Route/Sig Max Daily Dose Days Date Category Senna (Sennosides) 8.6 Mg Tablet 8.6 Mg PO BID 02/11/19 Reported Miralax (Polyethylene Glycol 3350) 17 Gm Powd.pack 1 Packet PO DAILY 02/11/19 Reported Milk Of Magnesia (Magnesium Hydroxide) 400 Mg/5 Ml Oral.susp 400 Mg PO DAILY 02/11/19 Reported Melatonin 3 Mg Tablet 1 Tab PO QHS 02/11/19 Reported Acetaminophen 325 Mg Tablet 650 Mg PO PRN Q4HRS PRN 12/03/13 Reported Keppra (Levetiracetam) 500 Mg Tablet 750 Mg PO BID 12/03/13 Reported Amlodipine Besylate 10 Mg Tablet 10 Mg PO DAILY 12/03/13 Reported Impression . Full consult dictated Acute respiratory failure secondary Covid19 See orders Case discussed with RN, will hold off on prone positioning, reduce chances of staph becoming infected, for now, will increase PEEP, increase I to E ratio. rCOVID-19 CRITERIA: The patient was evaluated during the global COVID-19 pandemic, and that diagnosis was suspected/considered upon their initial presentation. Their evaluation, treatment and testing was consistent with current guidelines for patients who present with complaints or symptoms that may be related to COVID-19. VALENTE BROWNING MD Dec 30, 2019 10:46
--- NOTE | 2019-12-30 12:02 | PDOC1 ---
History and Physical Date of Admission Date of Admission DATE: 12/30/19 TIME: 12:01 Identification/Chief Complaint Chief Complaint presented to the emergency department with complaints of respiratory distress. Patient is a resident of [place], roommate is positive for COVID-19, patient is been tested twice of which is been negative however presented 12/28 with fever 102 rectally, tachypnea with respiratory rate in the 40s, saturations on 15 L of 88 to 90%. intubated in er Unable to complete reviews of systems. daughter Ms. Abarca, phone number [phone], discussed intubation, resuscitative efforts. ///daughter would like to proceed further with work-up History of Present Illness History of Present Illness decompesated at retirement today, inc hypoxia Past Medical History Past Medical History Past Medical History Past Medical History Past Medical History: Constipation, CVA, Dementia, Diabetes-Type I, Seizure Additional Past Medical Histor: ALZHEIMERS, DYSPHAGIA WITH PUREED DIET Past Surgical History: Other Additional Past Surgical Histo: unknown, ventriculoperitoneal shunt placement Smoking Status: Former Smoker Alcohol Use: None Drug Use: None fhx diabetes Cardiovascular: HTN CENTRAL NERVOUS SYSTEM: Dementia, Seizure Past Surgical History Past Surgical History: Other Family History Family History: Hypertension, Family History Unknown Social History Smoke: Quit ALCOHOL: none Drugs: None Current Problem List Problem List Problems Medical Problems: (1) Acute respiratory failure Status: Acute (2) Elevated troponin Status: Acute Current Medications Current Medications Current Medications Acetaminophen (Tylenol Supp) 650 mg 1X ONCE [place] Last administered on 12/30/19at 01:40; Start 12/30/19 at 01:30; Stop 12/30/19 at 01:31; Status DC Vancomycin HCl (Vanco Per Pharmacy) 1 each PRN DAILY PRN MC SEE COMMENTS Last administered on 12/30/19at 04:42; Start 12/30/19 at 01:45 Levofloxacin/ Dextrose 150 ml @ 100 mls/hr 1X ONCE IV Last administered on 12/30/19at 01:58; Start 12/30/19 at 02:00; Stop 12/30/19 at 03:29; Status DC Potassium Chloride/Water 100 ml @ 50 mls/hr 1X ONCE IV ; Start 12/30/19 at 02:00; Stop 12/30/19 at 03:59; Status UNV Potassium Chloride/Water 100 ml @ 100 mls/hr Q1H IV Last administered on 12/30/19at 05:28; Start 12/30/19 at 02:00; Stop 12/30/19 at 03:59; Status DC Potassium Chloride/Dextrose 1,000 ml @ 75 mls/hr 1X ONCE IV Last administered on 12/30/19at 04:14; Start 12/30/19 at 02:30; Stop 12/30/19 at 15:49 Insulin Human Lispro (HumaLOG) 15 units 1X ONCE SQ Last administered on 12/30/19at 02:17; Start 12/30/19 at 02:30; Stop 12/30/19 at 02:31; Status DC Heparin Sodium (Porcine) (Heparin Sodium) 4,000 unit 1X ONCE IV Last administered on 12/30/19at 04:38; Start 12/30/19 at 02:30; Stop 12/30/19 at 02:31; Status DC Heparin Sodium/ Dextrose 250 ml @ 0 mls/hr CONT PRN IV PER PROTOCOL Last administered on 12/30/19at 05:46; Start 12/30/19 at 02:00 Heparin Sodium (Porcine) (Heparin Sodium) 2,050 unit PRN Q6HRS PRN IV FOR UFH LEVEL LESS THAN 0.2; Start 12/30/19 at 02:00 Info (Anti-Coagulation Monitoring By Pharmacy) 1 each PRN DAILY PRN MC SEE COMMENTS Last administered on 12/30/19at 04:37; Start 12/30/19 at 02:15 Vancomycin HCl 1.75 gm/Sodium Chloride 500 ml @ 250 mls/hr 1X ONCE IV Last administered on 12/30/19at 02:22; Start 12/30/19 at 03:00; Stop 12/30/19 at 04:59; Status DC Midazolam HCl 50 mg/Sodium Chloride 50 ml @ 0 mls/hr 1X ONCE IV ; Start 12/30/19 at 03:30; Stop 12/30/19 at 03:31; Status UNV Midazolam HCl 100 mg/Sodium Chloride 100 ml @ 0 mls/hr 1X ONCE IV Last administered on 12/30/19at 03:48; Start 12/30/19 at 04:00; Stop 12/30/19 at 04:01; Status DC Ondansetron HCl (Zofran) 4 mg PRN Q8HRS PRN IV NAUSEA/VOMITING; Start 12/30/19 at 04:15; Stop 12/31/19 at 04:14 Insulin Human Lispro (HumaLOG) 0-7 UNITS TIDWMEALS SQ ; Start 12/30/19 at 08:00 Dextrose (Dextrose 50%-Water Syringe) 12.5 gm PRN Q15MIN PRN IV SEE COMMENTS; Start 12/30/19 at 04:15 Fentanyl Citrate (Fentanyl 2ml Vial) 25 mcg PRN Q1HR PRN IV SEE COMMENTS; Start 12/30/19 at 04:15 Fentanyl Citrate (Fentanyl 2ml Vial) 50 mcg PRN Q1HR PRN IV SEE COMMENTS; Start 12/30/19 at 04:15 Chlorhexidine Gluconate (Peridex) 15 ml BID MM Last administered on 12/30/19at 09:00; Start 12/30/19 at 09:00 Midazolam HCl 100 ml @ 0 mls/hr CONT PRN IV SEE PROTOCOL; Start 12/30/19 at 04:15 Vancomycin HCl 1 gm/Sodium Chloride 250 ml @ 250 mls/hr Q24H IV ; Start 12/31/19 at 03:00 Vancomycin HCl (Vancomycin Trough Level) 1 each 1X ONCE MC ; Start 01/01/20 at 02:30; Stop 01/01/20 at 02:31 Norepinephrine Bitartrate 8 mg/ Dextrose 258 ml @ 13.197 mls/ hr 1X ONCE IV ; Start 12/30/19 at 05:00; Stop 12/31/19 at 00:32 Rocuronium [place] (Zemuron) 50 mg STK-MED ONCE .ROUTE ; Start 12/30/19 at 05:27; Stop 12/30/19 at 05:28; Status DC Etomidate (Amidate) 20 mg STK-MED ONCE IV ; Start 12/30/19 at 05:27; Stop 12/30/19 at 05:28; Status DC Active Scripts Active Reported Senna (Sennosides) 8.6 Mg Tablet 8.6 Mg PO BID Miralax (Polyethylene Glycol 3350) 17 Gm Powd.pack 1 Packet PO DAILY Milk Of Magnesia (Magnesium Hydroxide) 400 Mg/5 Ml Oral.susp 400 Mg PO DAILY Melatonin 3 Mg Tablet 1 Tab PO QHS Acetaminophen 325 Mg Tablet 650 Mg PO PRN Q4HRS PRN Keppra (Levetiracetam) 500 Mg Tablet 750 Mg PO BID Amlodipine Besylate 10 Mg Tablet 10 Mg PO DAILY Allergies Allergies: Coded Allergies: No Known Drug Allergies (Unverified , 01/07/14) ROS Review of System unable to evaluate due to vent support Respiratory: YES: Cough, Shortness of breath Physical Exam Physical Exam Lungs & Thorax: Decreased breath sounds appreciated bilaterally, tachypnea, cr ackles Abdomen: Bowel sounds normal, soft, no tenderness, no masses, no pulsatile masses. [] Skin: Warm, dry, no erythema, no rash. [] Back: No tenderness, no CVA tenderness. [] Extremities: No tenderness, no edema. [] Neurologic: Alert, does not follow commands, moves extremities. Baseline according to daughter. [] HEENT: Atraumatic Breasts: Not examined Abdomen: Soft Rectal Exam: not examined PELVIC: Examination not indicated Extremities: No cyanosis Vitals Vitals Vital Signs Date Time Temp Pulse Resp B/P (MAP) Pulse Ox O2 Delivery O2 Flow Rate FiO2 12/30/19 11:25 100 Ventilator 12/30/19 11:00 108 21 103/81 (88) 12/30/19 08:00 100.0 100.0 12/30/19 03:26 15.0 Labs Labs Laboratory Tests Test 12/30/19 00:45 12/30/19 00:50 12/30/19 01:30 12/30/19 04:30 O2 Saturation 90 % (92-99) 100 % (92-99) Arterial Blood pH 7.50 (7.35-7.45) 7.41 (7.35-7.45) Arterial Blood pH (Temp corrected) 7.49 7.39 Arterial Blood pCO2 at Patient Temp 37 mmHg (35-46) 41 mmHg (35-46) Arterial Blood pCO2 (Temp correct) 38 mmHg 43 mmHg Arterial Blood pO2 at Patient Temp 54 mmHg (65-108) 93 mmHg (65-108) Arterial Blood pO2 (Temp corrected) 58 mmHg 101 mmHg Arterial Blood HCO3 28 mmol/L (21-28) 26 mmol/L (21-28) Arterial Blood Base Excess 5 mmol/L (-3-3) 1 mmol/L (-3-3) FiO2 100 100 White Blood Count 7.3 x10^3/uL (4.0-11.0) Red Blood Count 4.65 x10^6/uL (3.50-5.40) Hemoglobin 13.6 g/dL (12.0-15.5) Hematocrit 42.5 % (36.0-47.0) Mean Corpuscular Volume 91 fL (79-100) Mean Corpuscular Hemoglobin 29 pg (25-35) Mean Corpuscular Hemoglobin Concent 32 g/dL (31-37) Red Cell Distribution Width 14.1 % (11.5-14.5) Platelet Count 192 x10^3/uL (140-400) Neutrophils (%) (Auto) 83 % (31-73) Lymphocytes (%) (Auto) 13 % (24-48) Monocytes (%) (Auto) 4 % (0-9) Eosinophils (%) (Auto) 0 % (0-3) Basophils (%) (Auto) 1 % (0-3) Neutrophils # (Auto) 6.0 x10^3/uL (1.8-7.7) Lymphocytes # (Auto) 1.0 x10^3/uL (1.0-4.8) Monocytes # (Auto) 0.3 x10^3/uL (0.0-1.1) Eosinophils # (Auto) 0.0 x10^3/uL (0.0-0.7) Basophils # (Auto) 0.0 x10^3/uL (0.0-0.2) Sodium Level 153 mmol/L (136-145) Potassium Level 2.7 mmol/L (3.5-5.1) Chloride Level 113 mmol/L (98-107) Carbon Dioxide Level 28 mmol/L (21-32) Anion Gap 12 (6-14) Blood Urea Nitrogen 15 mg/dL (7-20) Creatinine 1.0 mg/dL (0.6-1.0) Estimated GFR (Cockcroft-Gault) 63.6 BUN/Creatinine Ratio 15 (6-20) Glucose Level 422 mg/dL (70-99) Lactic Acid Level 1.4 mmol/L (0.4-2.0) Calcium Level 8.8 mg/dL (8.5-10.1) Total Bilirubin 0.5 mg/dL (0.2-1.0) Aspartate Amino Transf (AST/SGOT) 38 U/L (15-37) Alanine Aminotransferase (ALT/SGPT) 31 U/L (14-59) Alkaline Phosphatase 101 U/L (46-116) Troponin I Quantitative 0.102 ng/mL (0.000-0.055) WG-Phm-P-Type Natriuretic Peptide 755 pg/mL (0-449) Total Protein 7.4 g/dL (6.4-8.2) Albumin 2.6 g/dL (3.4-5.0) Albumin/Globulin Ratio 0.5 (1.0-1.7) Prothrombin Time 12.4 SEC (11.7-14.0) Prothromb Time International Ratio 1.0 (0.8-1.1) Urine Collection Type Unknown Urine Color Yellow Urine Clarity Cloudy Urine pH 6.0 (<5.0-8.0) Urine Specific [place] >=1.030 (1.000-1.030) Urine Protein >=300 mg/dL (NEG-TRACE) Urine Glucose (UA) >=1000 mg/dL (NEG) Urine Ketones (Stick) Negative mg/dL (NEG) Urine Blood Moderate (NEG) Urine Nitrite Negative (NEG) Urine Bilirubin Negative (NEG) Urine Urobilinogen Dipstick 1.0 mg/dL (0.2 mg/dL) Urine Leukocyte Esterase Small (NEG) Urine RBC 20-40 /HPF (0-2) Urine WBC Tntc /HPF (0-4) Urine Squamous Epithelial Cells Few /LPF Urine Renal Epithelial Cells Occ /LPF Urine Bacteria Many /HPF (0-FEW) Urine Hyaline Casts Occasional /HPF Urine Granular Casts Few /HPF Urine Mucus Mod /LPF Magnesium Level 1.9 mg/dL (1.8-2.4) Acetone Level Neg (NEG) Influenza Type A Antigen Negative (NEGATIVE) Influenza Type B Antigen Negative (NEGATIVE) Test 12/30/19 07:15 12/30/19 07:57 12/30/19 10:30 Troponin I Quantitative 0.079 ng/mL (0.000-0.055) 0.110 ng/mL (0.000-0.055) Glucose (Fingerstick) 267 mg/dL (70-99) Laboratory Tests Test 12/30/19 00:45 12/30/19 00:50 12/30/19 01:30 12/30/19 04:30 O2 Saturation 90 % (92-99) 100 % (92-99) Arterial Blood pH 7.50 (7.35-7.45) 7.41 (7.35-7.45) Arterial Blood pH (Temp corrected) 7.49 7.39 Arterial Blood pCO2 at Patient Temp 37 mmHg (35-46) 41 mmHg (35-46) Arterial Blood pCO2 (Temp correct) 38 mmHg 43 mmHg Arterial Blood pO2 at Patient Temp 54 mmHg (65-108) 93 mmHg (65-108) Arterial Blood pO2 (Temp corrected) 58 mmHg 101 mmHg Arterial Blood HCO3 28 mmol/L (21-28) 26 mmol/L (21-28) Arterial Blood Base Excess 5 mmol/L (-3-3) 1 mmol/L (-3-3) FiO2 100 100 White Blood Count 7.3 x10^3/uL (4.0-11.0) Red Blood Count 4.65 x10^6/uL (3.50-5.40) Hemoglobin 13.6 g/dL (12.0-15.5) Hematocrit 42.5 % (36.0-47.0) Mean Corpuscular Volume 91 fL (79-100) Mean Corpuscular Hemoglobin 29 pg (25-35) Mean Corpuscular Hemoglobin Concent 32 g/dL (31-37) Red Cell Distribution Width 14.1 % (11.5-14.5) Platelet Count 192 x10^3/uL (140-400) Neutrophils (%) (Auto) 83 % (31-73) Lymphocytes (%) (Auto) 13 % (24-48) Monocytes (%) (Auto) 4 % (0-9) Eosinophils (%) (Auto) 0 % (0-3) Basophils (%) (Auto) 1 % (0-3) Neutrophils # (Auto) 6.0 x10^3/uL (1.8-7.7) Lymphocytes # (Auto) 1.0 x10^3/uL (1.0-4.8) Monocytes # (Auto) 0.3 x10^3/uL (0.0-1.1) Eosinophils # (Auto) 0.0 x10^3/uL (0.0-0.7) Basophils # (Auto) 0.0 x10^3/uL (0.0-0.2) Sodium Level 153 mmol/L (136-145) Potassium Level 2.7 mmol/L (3.5-5.1) Chloride Level 113 mmol/L (98-107) Carbon Dioxide Level 28 mmol/L (21-32) Anion Gap 12 (6-14) Blood Urea Nitrogen 15 mg/dL (7-20) Creatinine 1.0 mg/dL (0.6-1.0) Estimated GFR (Cockcroft-Gault) 63.6 BUN/Creatinine Ratio 15 (6-20) Glucose Level 422 mg/dL (70-99) Lactic Acid Level 1.4 mmol/L (0.4-2.0) Calcium Level 8.8 mg/dL (8.5-10.1) Total Bilirubin 0.5 mg/dL (0.2-1.0) Aspartate Amino Transf (AST/SGOT) 38 U/L (15-37) Alanine Aminotransferase (ALT/SGPT) 31 U/L (14-59) Alkaline Phosphatase 101 U/L (46-116) Troponin I Quantitative 0.102 ng/mL (0.000-0.055) KF-Xow-K-Type Natriuretic Peptide 755 pg/mL (0-449) Total Protein 7.4 g/dL (6.4-8.2) Albumin 2.6 g/dL (3.4-5.0) Albumin/Globulin Ratio 0.5 (1.0-1.7) Prothrombin Time 12.4 SEC (11.7-14.0) Prothromb Time International Ratio 1.0 (0.8-1.1) Urine Collection Type Unknown Urine Color Yellow Urine Clarity Cloudy Urine pH 6.0 (<5.0-8.0) Urine Specific [place] >=1.030 (1.000-1.030) Urine Protein >=300 mg/dL (NEG-TRACE) Urine Glucose (UA) >=1000 mg/dL (NEG) Urine Ketones (Stick) Negative mg/dL (NEG) Urine Blood Moderate (NEG) Urine Nitrite Negative (NEG) Urine Bilirubin Negative (NEG) Urine Urobilinogen Dipstick 1.0 mg/dL (0.2 mg/dL) Urine Leukocyte Esterase Small (NEG) Urine RBC 20-40 /HPF (0-2) Urine WBC Tntc /HPF (0-4) Urine Squamous Epithelial Cells Few /LPF Urine Renal Epithelial Cells Occ /LPF Urine Bacteria Many /HPF (0-FEW) Urine Hyaline Casts Occasional /HPF Urine Granular Casts Few /HPF Urine Mucus Mod /LPF Magnesium Level 1.9 mg/dL (1.8-2.4) Acetone Level Neg (NEG) Influenza Type A Antigen Negative (NEGATIVE) Influenza Type B Antigen Negative (NEGATIVE) Test 12/30/19 07:15 12/30/19 07:57 12/30/19 10:30 Troponin I Quantitative 0.079 ng/mL (0.000-0.055) 0.110 ng/mL (0.000-0.055) Glucose (Fingerstick) 267 mg/dL (70-99) Images Images EXAM: AP View of the chest DATE: 12/30/2019 3:47 AM INDICATION: Intubation, lines dyspnea COMPARISON: 12/30/2019 FINDINGS/ IMPRESSION: ET tube is seen approximately 2 cm above the radha. Enteric tube tip terminates over the body of the stomach. Right IJ vascular catheter tips project over the distal SVC/right atrium. Aorta is tortuous. Interval increase in right upper lung airspace opacities. Bilateral mid lung and left lower lung airspace opacities are grossly unchanged. No pleural effusion or pneumothorax. Electronically signed by: Durga Neely MD (12/30/2019 4:29 AM) NATALIE DICTATED and SIGNED BY: DURGA NEELY MD DATE: 12/30/19 0429 DATE: 12/30/2019 1:29 AM INDICATION: Shortness of breath COMPARISON: 11/06/2019 FINDINGS: The heart is not enlarged. Aorta is tortuous. Retrocardiac density likely small hiatal hernia. Right IJ vascular catheter projects over the right atrium. Diffuse bilateral airspace opacities, particularly in the left mid and lower lung peripheral right lung. No pleural effusion or pneumothorax. IMPRESSION: 1. Bilateral airspace opacities, nonspecific may represent consolidative process such as pneumonia or atypical infectious or inflammatory process. 2. Right IJ vascular catheter tip projects right atrium. Electronically signed by: Durga Neely MD (12/30/2019 3:00 AM) NATALIE VTE Prophylaxis Ordered VTE Prophylaxis Devices: Yes VTE Pharmacological Prophylaxi: Contraindicated Assessment/Plan Assessment/Plan impression Acute hypoxic resp failure SEVERE SEPSIS Bilateral airspace opacities, consolidative process c/w pneumonia or atypical infectious or inflammatory process. Hypernatremia 153, hypokalemia, potassium 2.7, chloride 113 - Diabetes elevated troponin, likely 2/2 resp distress and demand ischemia advanced dementia HX COPD REMOTE TOBACCO ABUSE plan vent support consult pulm replete k blood culture BS 422 - 10 units sq of insulin in er iv (vancomycin, Levaquin) BLOOD CULTURE ICU BED admitted with suspected COVID and resp failure Heparin gtt //elevated troponin, likely 2/2 resp distress and demand ischemia IV PROTONIX DUONEBS QID POOR PROGNOSIS due to age, COPD AND Covid-19 exposure 39 MIN CC TIME COVID-19 CRITERIA: The patient was evaluated during the global COVID-19 pandemic, and that diagnosis was suspected/considered upon their initial presentation. Their evaluation, treatment and testing was consistent with current guidelines for patients who present with complaints or symptoms that may be related to COVID-19. GOKUL ROMERO MD Dec 30, 2019 12:02
[2019-12-30] MEDS ORDERED: 0.9 % SODIUM CHLORIDE 10 ML DISP.SYRIN. IV PRN ×2 (12:15→12:30)
[2019-12-30] MEDS ORDERED: ACETAMINOPHEN 650 MG SUPP.RECT. PR PRN (12:15)
[2019-12-30] MEDS ORDERED: SODIUM PHOSPHATES 19/7GM 133 ML ENEMA. PR PRN (12:15)
[2019-12-30] MEDS ORDERED: PROCHLORPERAZINE 10 MG/2 ML VIAL. IVP PRN (12:30)
[2019-12-30] MEDS ORDERED: BISACODYL 10 MG SUPP.RECT. PR PRN (12:30)
[2019-12-30] MEDS ORDERED: ALBUTEROL SULFATE 2.5 MG/3 ML NEBU. NEB PRN (13:45)
[2019-12-30] MEDS: PANTOPRAZOLE IV PUSH 40 MG VIAL. IVP SCH (15:18)
[2019-12-30] MEDS: PIPERACILLIN/TAZOBACTAM 3.375 GM in IV NORMAL SALINE 50ML 50 ML IV SCH ×2 (15:18→23:38)
[2019-12-30] MEDS ORDERED: IPRATRPIUM/ALBUTEROL 0.5/2.5MG 3 ML NEBU. NEB SCH (16:00)
[2019-12-30] MEDS: IV RINGERS,LACTATED 1000ML 1,000 ML IV SCH (18:27)
--- NOTE | 2019-12-30 18:29 | CONS ---
DATE OF CONSULTATION: 12/30/2019 ATTENDING PHYSICIAN: Tan Padilla MD REASON FOR CONSULTATION: The patient seen in pulmonary consultation at the request of Dr. Padilla for acute respiratory failure, COVID positive. HISTORY OF PRESENT ILLNESS: The patient is an 84-year-old female who resides at [facility], they have had multiple positive COVID patients. The patient has a history of CVA, hypertension, diabetes, dementia, presented to the Emergency Room in respiratory distress. She was intubated. She is currently in the intensive care unit. She is on 100% FiO2, 5 of PEEP. A chest x-ray was reviewed. There is bilateral pulmonary infiltrates compatible with acute lung injury, pneumonia. I reviewed her labs. White count was 7.3. She had a lymphopenia. Arterial blood gas: pH of 7.41, PaCO2 of 7.39, PaCO2 of 41, pO2 of 93. Serology for influenza was negative. Acetone level was negative. UA was noted. Electrolytes were noted. Troponin level was slightly elevated, 2.7. Sodium was elevated. BUN and creatinine normal. AST is elevated. Albumin was low. PAST MEDICAL HISTORY: CVA; hypertension; diabetes; dementia; dysphagia, the patient is on a pureed diet; diabetes; history of seizure. PAST SURGICAL HISTORY: She has had previous ventriculoperitoneal shunt placement. SOCIAL HISTORY: She is a former smoker. ALLERGIES: No known drug allergies. REVIEW OF SYSTEMS: Review of systems unable to obtain secondary to the patient's condition. I read the Emergency physician's notes. The case was discussed with Ms. Chand, the patient's daughter who we elected to proceed with full support. The patient was then intubated in the Emergency Room as a consequence of decreased saturation despite 100% FiO2. She also had a temperature of 102 rectally. CURRENT MEDICATION: List was reviewed. PHYSICAL EXAMINATION: VITAL SIGNS: She has had T-max of 102.6, today it is 100. HEENT: Eyes, the sclerae were nonicteric. NECK: Jugular venous distention could not be assessed secondary to body habitus. LUNGS: Adequate flow with no wheezes. CARDIOVASCULAR: Regular rate and rhythm with S1, S2, no S3. ABDOMEN: Soft, nontender. EXTREMITIES: No clubbing, cyanosis. Some edema. NEUROLOGICAL: The patient was sedated. LABORATORY DATA: Labs and chest x-ray reviewed. Chest x-ray reveals bilateral pulmonary infiltrates with a right upper lung airspace opacities. IMPRESSION: 1. Acute respiratory failure secondary to COVID-19. 2. COVID-19. 3. Bilateral pulmonary infiltrates, suspect acute lung injury, versus possible pneumonia. 4. Cerebrovascular accident. 5. Dementia. 6. Type of seizure. 7. History of ventriculoperitoneal shunt. 8. Hypernatremia. 9. Hypokalemia. 10. Fever. DISCUSSION: As indicated above, the patient presents from the [place] [facility] where there has been a great number of COVID positive patients. She presents during the global COVID-19 pandemic. Diagnosis of COVID-19 was suspected of upfront. The patient is currently being treated with current guidelines. We will continue support with assist control ventilation. We will start hydroxychloroquine. Hold off on Zithromax for possible complications of QT interval prolongation. I have noticed that the patient is on heparin drip per Cardiology. She does have an elevated troponin level. Total cumulative critical care time of 65 minutes, reviewing data, labs, chest x-ray and formulating a plan. Overall, suspect the patient will not survive. We will continue our efforts and discuss further advanced directive with the patient's family. VALENTE BROWNING MD DR: COMFORT/natasha JOB#: [id number] / [id number]
[2019-12-30] MEDS: MIDAZOLAM 100mg/100ml NS BAG 100 ML IV PRN (20:08)
[2019-12-30] MEDS: fentaNYL PF VIAL 100 MCG/2 ML VIAL IV PRN (23:47)
[2019-12-31] VITALS (30 sets, daily range): BP systolic 75–160; BP diastolic 56–91
[2019-12-31] MEDS: fentaNYL PF VIAL 100 MCG/2 ML VIAL IV PRN (02:05)
--- NOTE | 2019-12-31 02:35 | NUR ---
UFH resulted 0.22, per Heparin protocol, Heparin to be increased by 2UNITS/KG/HR and recheck UFH in six hours. Heparin gtt now at 11UNITS/KG/HR, repeat UFH ordered for 834.
[2019-12-31] MEDS ORDERED: VANCOMYCIN 1 GM in IV NORMAL SALINE 250ML 250 ML IV SCH (03:00)
--- NOTE | 2019-12-31 04:35 | NUR ---
Patient's respirations ranging form 24-34; Versed gtt increased to 8MG/HR with CPOT 2-3, patient was given Fentanyl IVP and respirations would decrease and CPOT would be 0, but ~30-45min later RR would again increase. Fentanyl [employer] ST[employer] continuous infusion started at 50MCG/HR for better vent/sedation management.
[2019-12-31] MEDS: IV RINGERS,LACTATED 1000ML 1,000 ML IV SCH ×2 (05:08→15:15)
[2019-12-31] MEDS: INSULIN LISPRO 300 UNITS/3 ML VIAL. SQ SCH ×3 (05:54→17:57)
[2019-12-31] MEDS: PIPERACILLIN/TAZOBACTAM 3.375 GM in IV NORMAL SALINE 50ML 50 ML IV SCH (06:02)
[2019-12-31 06:36] LABS: ALBUMIN 1.6 g/dL (3.4-5.0); ALBUMIN/GLOBULIN RATIO 0.4 (1.0-1.7); CALCIUM 7.8 mg/dL (8.5-10.1); CREATININE 2.7 mg/dL (0.6-1.0); GFR 20.2; TOTAL PROTEIN 6.1 g/dL (6.4-8.2)
[2019-12-31 06:39] LABS: POTASSIUM 2.9 mmol/L (3.5-5.1)
[2019-12-31] MEDS: ELECTROLYTE (ICU) PROTOCOL. MC SCH (06:40)
[2019-12-31] MEDS: POTASSIUM CHLORIDE 20MEQ 100 ML IV SCH ×4 (06:50→10:10)
--- NOTE | 2019-12-31 07:10 | NUR ---
Dr Dumont called, updated on overall condition, reviewed vent settings, lung sounds, lab results--replacing K+, and UO. Orders received to start tube feedings; Consult placed for nutrition. Will await ABG results to wean FiO2 down.
[2019-12-31 07:13] LABS: BASO % 0 % (0-3); EOS % 0 % (0-3); HEMATOCRIT 36.9 % (36.0-47.0); HEMOGLOBIN 11.9 g/dL (12.0-15.5); LYMPH # 1.4 x10^3/uL (1.0-4.8); LYMPH % 14 % (24-48); MEAN CORPUSCULAR HEMOGLOBIN 29 pg (25-35); MEAN CORPUSCULAR HGB CONC 32 g/dL (31-37); MEAN CORPUSCULAR VOLUME 91 fL (79-100); MONO # 0.3 x10^3/uL (0.0-1.1); MONO % 3 % (0-9); NEUT # 8.5 x10^3/uL (1.8-7.7); NEUT % 83 % (31-73); PLATELET COUNT 163 x10^3/uL (140-400); RED BLOOD COUNT 4.05 x10^6/uL (3.50-5.40); RED CELL DISTRIBUTION WIDTH 14.6 % (11.5-14.5); WHITE BLOOD COUNT 10.2 x10^3/uL (4.0-11.0)
--- NOTE | 2019-12-31 07:27 | PDOC ---
PULMONARY PROGRESS NOTES Subjective remains intubated/sedated on 100%FIO2/high PEEP worsening renal function/ making urine Vitals Vital Signs Date Time Temp Pulse Resp B/P (MAP) Pulse Ox O2 Delivery O2 Flow Rate FiO2 12/31/19 07:00 82 18 99/69 (79) 100 Ventilator 12/31/19 04:00 100.4 100.4 Lungs: Crackles Cardiovascular: S1 Extremities: Other (trace edema) Labs Laboratory Tests Test 12/30/19 00:45 12/30/19 00:50 12/30/19 01:30 12/30/19 04:30 O2 Saturation 90 % (92-99) 100 % (92-99) Arterial Blood pH 7.50 (7.35-7.45) 7.41 (7.35-7.45) Arterial Blood pH (Temp corrected) 7.49 7.39 Arterial Blood pCO2 at Patient Temp 37 mmHg (35-46) 41 mmHg (35-46) Arterial Blood pCO2 (Temp correct) 38 mmHg 43 mmHg Arterial Blood pO2 at Patient Temp 54 mmHg (65-108) 93 mmHg (65-108) Arterial Blood pO2 (Temp corrected) 58 mmHg 101 mmHg Arterial Blood HCO3 28 mmol/L (21-28) 26 mmol/L (21-28) Arterial Blood Base Excess 5 mmol/L (-3-3) 1 mmol/L (-3-3) FiO2 100 100 White Blood Count 7.3 x10^3/uL (4.0-11.0) Red Blood Count 4.65 x10^6/uL (3.50-5.40) Hemoglobin 13.6 g/dL (12.0-15.5) Hematocrit 42.5 % (36.0-47.0) Mean Corpuscular Volume 91 fL (79-100) Mean Corpuscular Hemoglobin 29 pg (25-35) Mean Corpuscular Hemoglobin Concent 32 g/dL (31-37) Red Cell Distribution Width 14.1 % (11.5-14.5) Platelet Count 192 x10^3/uL (140-400) Neutrophils (%) (Auto) 83 % (31-73) Lymphocytes (%) (Auto) 13 % (24-48) Monocytes (%) (Auto) 4 % (0-9) Eosinophils (%) (Auto) 0 % (0-3) Basophils (%) (Auto) 1 % (0-3) Neutrophils # (Auto) 6.0 x10^3/uL (1.8-7.7) Lymphocytes # (Auto) 1.0 x10^3/uL (1.0-4.8) Monocytes # (Auto) 0.3 x10^3/uL (0.0-1.1) Eosinophils # (Auto) 0.0 x10^3/uL (0.0-0.7) Basophils # (Auto) 0.0 x10^3/uL (0.0-0.2) Sodium Level 153 mmol/L (136-145) Potassium Level 2.7 mmol/L (3.5-5.1) Chloride Level 113 mmol/L (98-107) Carbon Dioxide Level 28 mmol/L (21-32) Anion Gap 12 (6-14) Blood Urea Nitrogen 15 mg/dL (7-20) Creatinine 1.0 mg/dL (0.6-1.0) Estimated GFR (Cockcroft-Gault) 63.6 BUN/Creatinine Ratio 15 (6-20) Glucose Level 422 mg/dL (70-99) Lactic Acid Level 1.4 mmol/L (0.4-2.0) Calcium Level 8.8 mg/dL (8.5-10.1) Total Bilirubin 0.5 mg/dL (0.2-1.0) Aspartate Amino Transf (AST/SGOT) 38 U/L (15-37) Alanine Aminotransferase (ALT/SGPT) 31 U/L (14-59) Alkaline Phosphatase 101 U/L (46-116) Troponin I Quantitative 0.102 ng/mL (0.000-0.055) KF-Zgz-C-Type Natriuretic Peptide 755 pg/mL (0-449) Total Protein 7.4 g/dL (6.4-8.2) Albumin 2.6 g/dL (3.4-5.0) Albumin/Globulin Ratio 0.5 (1.0-1.7) Prothrombin Time 12.4 SEC (11.7-14.0) Prothromb Time International Ratio 1.0 (0.8-1.1) Urine Collection Type Unknown Urine Color Yellow Urine Clarity Cloudy Urine pH 6.0 (<5.0-8.0) Urine Specific [place] >=1.030 (1.000-1.030) Urine Protein >=300 mg/dL (NEG-TRACE) Urine Glucose (UA) >=1000 mg/dL (NEG) Urine Ketones (Stick) Negative mg/dL (NEG) Urine Blood Moderate (NEG) Urine Nitrite Negative (NEG) Urine Bilirubin Negative (NEG) Urine Urobilinogen Dipstick 1.0 mg/dL (0.2 mg/dL) Urine Leukocyte Esterase Small (NEG) Urine RBC 20-40 /HPF (0-2) Urine WBC Tntc /HPF (0-4) Urine Squamous Epithelial Cells Few /LPF Urine Renal Epithelial Cells Occ /LPF Urine Bacteria Many /HPF (0-FEW) Urine Hyaline Casts Occasional /HPF Urine Granular Casts Few /HPF Urine Mucus Mod /LPF Magnesium Level 1.9 mg/dL (1.8-2.4) Acetone Level Neg (NEG) Influenza Type A Antigen Negative (NEGATIVE) Influenza Type B Antigen Negative (NEGATIVE) Test 12/30/19 07:15 12/30/19 07:57 12/30/19 10:30 12/30/19 12:14 Troponin I Quantitative 0.079 ng/mL (0.000-0.055) 0.110 ng/mL (0.000-0.055) Glucose (Fingerstick) 267 mg/dL (70-99) 224 mg/dL (70-99) Test 12/30/19 12:15 12/30/19 17:55 12/30/19 18:02 12/30/19 23:31 Heparin Anti-Xa Act, Unfractionated 0.62 IU/mL (0.30-0.70) > 1.10 IU/mL (0.30-0.70) Glucose (Fingerstick) 171 mg/dL (70-99) 114 mg/dL (70-99) Test 12/31/19 01:45 12/31/19 05:40 12/31/19 05:53 Heparin Anti-Xa Act, Unfractionated 0.22 IU/mL (0.30-0.70) Sodium Level 151 mmol/L (136-145) Potassium Level 2.9 mmol/L (3.5-5.1) Chloride Level 113 mmol/L (98-107) Carbon Dioxide Level 26 mmol/L (21-32) Anion Gap 12 (6-14) Blood Urea Nitrogen 26 mg/dL (7-20) Creatinine 2.7 mg/dL (0.6-1.0) Estimated GFR (Cockcroft-Gault) 20.2 BUN/Creatinine Ratio 10 (6-20) Glucose Level 214 mg/dL (70-99) Calcium Level 7.8 mg/dL (8.5-10.1) Total Bilirubin 2.0 mg/dL (0.2-1.0) Aspartate Amino Transf (AST/SGOT) 72 U/L (15-37) Alanine Aminotransferase (ALT/SGPT) 26 U/L (14-59) Alkaline Phosphatase 86 U/L (46-116) Total Protein 6.1 g/dL (6.4-8.2) Albumin 1.6 g/dL (3.4-5.0) Albumin/Globulin Ratio 0.4 (1.0-1.7) Glucose (Fingerstick) 195 mg/dL (70-99) Laboratory Tests Test 12/30/19 07:57 12/30/19 10:30 12/30/19 12:14 12/30/19 12:15 Glucose (Fingerstick) 267 mg/dL (70-99) 224 mg/dL (70-99) Troponin I Quantitative 0.110 ng/mL (0.000-0.055) Heparin Anti-Xa Act, Unfractionated 0.62 IU/mL (0.30-0.70) Test 12/30/19 17:55 12/30/19 18:02 12/30/19 23:31 12/31/19 01:45 Heparin Anti-Xa Act, Unfractionated > 1.10 IU/mL (0.30-0.70) 0.22 IU/mL (0.30-0.70) Glucose (Fingerstick) 171 mg/dL (70-99) 114 mg/dL (70-99) Test 12/31/19 05:40 12/31/19 05:53 Sodium Level 151 mmol/L (136-145) Potassium Level 2.9 mmol/L (3.5-5.1) Chloride Level 113 mmol/L (98-107) Carbon Dioxide Level 26 mmol/L (21-32) Anion Gap 12 (6-14) Blood Urea Nitrogen 26 mg/dL (7-20) Creatinine 2.7 mg/dL (0.6-1.0) Estimated GFR (Cockcroft-Gault) 20.2 BUN/Creatinine Ratio 10 (6-20) Glucose Level 214 mg/dL (70-99) Calcium Level 7.8 mg/dL (8.5-10.1) Total Bilirubin 2.0 mg/dL (0.2-1.0) Aspartate Amino Transf (AST/SGOT) 72 U/L (15-37) Alanine Aminotransferase (ALT/SGPT) 26 U/L (14-59) Alkaline Phosphatase 86 U/L (46-116) Total Protein 6.1 g/dL (6.4-8.2) Albumin 1.6 g/dL (3.4-5.0) Albumin/Globulin Ratio 0.4 (1.0-1.7) Glucose (Fingerstick) 195 mg/dL (70-99) Medications Active Scripts Medications Dose Route/Sig Max Daily Dose Days Date Category Senna (Sennosides) 8.6 Mg Tablet 8.6 Mg PO BID 02/11/19 Reported Miralax (Polyethylene Glycol 3350) 17 Gm Powd.pack 1 Packet PO DAILY 02/11/19 Reported Milk Of Magnesia (Magnesium Hydroxide) 400 Mg/5 Ml Oral.susp 400 Mg PO DAILY 02/11/19 Reported Melatonin 3 Mg Tablet 1 Tab PO QHS 02/11/19 Reported Acetaminophen 325 Mg Tablet 650 Mg PO PRN Q4HRS PRN 12/03/13 Reported Keppra (Levetiracetam) 500 Mg Tablet 750 Mg PO BID 12/03/13 Reported Amlodipine Besylate 10 Mg Tablet 10 Mg PO DAILY 12/03/13 Reported Impression . IMPRESSION: 1. Acute respiratory failure secondary to COVID-19./ ARDS 2. COVID-19.Pneumonia 3. Bilateral pulmonary infiltrates due to pneumonia. 4. Cerebrovascular accident. 5. Dementia. 6. Type of seizure. 7. History of ventriculoperitoneal shunt. 8. Hypernatremia. 9. Hypokalemia. 10. Fever. 11. Worsening renal failure 12. Severe PCM Plan . DISCUSSION: As indicated above, the patient presents from the [facility] where there has been a great number of COVID positive patients. She presents during the global COVID-19 pandemic. Diagnosis of COVID-19 was suspected of upfront. The patient is currently being treated with current guidelines. We will continue support with assist control ventilation. We will start hydroxychloroquine once confirmed COVID. Hold off on Zithromax for possible complications of QT interval prolongation. On vanc/ Zosyn heparin drip per Cardiology. She does have an elevated troponin level. Start TF Consult renal/ Not the best candidate for HD Start enteral nutrition d/w RN Total cumulative critical care time of 30 minutes, reviewing data, labs, chest x-ray and formulating a plan. Overall, suspect the patient will not survive. We will continue our efforts and discuss further advanced directive with the patient's family. COVID-19 CRITERIA: The patient was evaluated during the global COVID-19 pandemic, and that diagnosis was suspected/considered upon their initial presentation. Their evaluation, treatment and testing was consistent with current guidelines for patients who present with complaints or symptoms that may be related to COVID-19. KATH ROMAN MD Dec 31, 2019 07:27
[2019-12-31] MEDS: PANTOPRAZOLE IV PUSH 40 MG VIAL. IVP SCH (08:30)
[2019-12-31 08:36] LABS: BASE EXCESS ABG -1 mmol/L (-3-3); HCO3 ABG 25 mmol/L (21-28); PCO2 ABG 42 mmHg (35-46); PO2 ABG 163 mmHg (65-108); SAT O2 ABG 99 % (92-99)
--- NOTE | 2019-12-31 08:36 | PDOC ---
PROGRESS NOTES Chief Complaint Chief Complaint A/P: Acute hypoxic respiratory failure Severe sepsis Elevated troponin Hypernatremia Hypokalemia H/o subdural hematoma - prior ever holes noted. acute left frontal convexity subdural hematoma 5 mm-->7mm. Minimal mass effect. ICU monitoring. BP control. Neurosurgery consulted. Repeat CT head History of Alzheimer's - not on meds due to long-standing disease History of epilepsy, on levetiracetam - will continue 750mg BID. 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 She presents during the global COVID-19 pandemic. Diagnosis of COVID-19 was suspected of upfront. The patient is currently being treated with current guidelines. We will continue support with assist control ventilation. We will start hydroxychloroquine. Hold off on Zithromax for possible complications of QT interval prolongation. History of Present Illness History of Present Illness Ms Kumar is an 84[facility] F [facility] resident w/ PMHx Constipation, CVA, Alzheimer Dementia, Diabetes-Type 2, Seizures, s/p ventriculoperitoneal shunt placement who presents with complaints of respiratory distress. Patient is a resident of [facility], roommate is positive for COVID, patient has been tested twice of which is been negative however she presented with fever 102 rectally, tachypnea with respiratory rate in the 40s, saturations on 15 L of 88 to 90%. ED physician discussed resuscitation efforts with the daughter and with O2 saturations high 80's to 90's on 15 L NRB and Xray with evidence of bilateral consolidation she would like to proceed with full resuscitative efforts and patient was emergently intubated in ED and admitted to ICU. Cultures obtained and labs reviewed Na 153, potassium 2.7, chloride 113 - D5w with 20k at 75ml/hr, BS 422 - 10 units sq of insulin Abx (vancomycin, Levaquin) Heparin gtt initiated given elevated troponin, likely 2/2 resp distress and demand ischemia [11/06/2019 admitted for fall with CT head revealing a new SDH, acute left frontal convexity subdural hematoma measuring 5 mm in thickness. Minimal mass effect.] Consults: Pulmonology Overnight Tmax 101.5F. Intubated and sedated on vent FiO2 100%, PEEP 8 with ABG with PO2 of 136 this morning. CXR unchanged. K 2.9 this morning. Na 151. Blood Culture with GPC 1/4 positive. Plan: Decreased FIO2 to 70%, will defer to pulm to adjust PEEP. Free water 150cc q4hrs to correct free water deficit. Vital AF TF ok. K replacement protocol, central line Stop heparin GTT Vitals Vitals Vital Signs Date Time Temp Pulse Resp B/P (MAP) Pulse Ox O2 Delivery O2 Flow Rate FiO2 12/31/19 07:35 100 Ventilator 12/31/19 07:00 82 18 99/69 (79) 12/31/19 04:00 100.4 100.4 Physical Exam General: No acute distress Heart: Regular rate, Normal S1 Lungs: Crackles Abdomen: Soft Extremities: No cyanosis Labs LABS Laboratory Tests Test 12/30/19 10:30 12/30/19 12:14 12/30/19 12:15 12/30/19 17:55 Troponin I Quantitative 0.110 ng/mL (0.000-0.055) Glucose (Fingerstick) 224 mg/dL (70-99) Heparin Anti-Xa Act, Unfractionated 0.62 IU/mL (0.30-0.70) > 1.10 IU/mL (0.30-0.70) Test 12/30/19 18:02 12/30/19 23:31 12/31/19 01:45 12/31/19 05:40 Glucose (Fingerstick) 171 mg/dL (70-99) 114 mg/dL (70-99) Heparin Anti-Xa Act, Unfractionated 0.22 IU/mL (0.30-0.70) White Blood Count 10.2 x10^3/uL (4.0-11.0) Red Blood Count 4.05 x10^6/uL (3.50-5.40) Hemoglobin 11.9 g/dL (12.0-15.5) Hematocrit 36.9 % (36.0-47.0) Mean Corpuscular Volume 91 fL (79-100) Mean Corpuscular Hemoglobin 29 pg (25-35) Mean Corpuscular Hemoglobin Concent 32 g/dL (31-37) Red Cell Distribution Width 14.6 % (11.5-14.5) Platelet Count 163 x10^3/uL (140-400) Neutrophils (%) (Auto) 83 % (31-73) Lymphocytes (%) (Auto) 14 % (24-48) Monocytes (%) (Auto) 3 % (0-9) Eosinophils (%) (Auto) 0 % (0-3) Basophils (%) (Auto) 0 % (0-3) Neutrophils # (Auto) 8.5 x10^3/uL (1.8-7.7) Lymphocytes # (Auto) 1.4 x10^3/uL (1.0-4.8) Monocytes # (Auto) 0.3 x10^3/uL (0.0-1.1) Eosinophils # (Auto) 0.0 x10^3/uL (0.0-0.7) Basophils # (Auto) 0.0 x10^3/uL (0.0-0.2) Sodium Level 151 mmol/L (136-145) Potassium Level 2.9 mmol/L (3.5-5.1) Chloride Level 113 mmol/L (98-107) Carbon Dioxide Level 26 mmol/L (21-32) Anion Gap 12 (6-14) Blood Urea Nitrogen 26 mg/dL (7-20) Creatinine 2.7 mg/dL (0.6-1.0) Estimated GFR (Cockcroft-Gault) 20.2 BUN/Creatinine Ratio 10 (6-20) Glucose Level 214 mg/dL (70-99) Calcium Level 7.8 mg/dL (8.5-10.1) Total Bilirubin 2.0 mg/dL (0.2-1.0) Aspartate Amino Transf (AST/SGOT) 72 U/L (15-37) Alanine Aminotransferase (ALT/SGPT) 26 U/L (14-59) Alkaline Phosphatase 86 U/L (46-116) Total Protein 6.1 g/dL (6.4-8.2) Albumin 1.6 g/dL (3.4-5.0) Albumin/Globulin Ratio 0.4 (1.0-1.7) Test 12/31/19 05:53 Glucose (Fingerstick) 195 mg/dL (70-99) Assessment and Plan Assessmemt and Plan Problems Medical Problems: (1) Acute respiratory failure Status: Acute (2) Elevated troponin Status: Acute Comment Review of Relevant I have reviewed the following items beau (where applicable) has been applied. Labs Laboratory Tests Test 12/30/19 00:45 12/30/19 00:50 12/30/19 01:30 12/30/19 04:30 O2 Saturation 90 % (92-99) 100 % (92-99) Arterial Blood pH 7.50 (7.35-7.45) 7.41 (7.35-7.45) Arterial Blood pH (Temp corrected) 7.49 7.39 Arterial Blood pCO2 at Patient Temp 37 mmHg (35-46) 41 mmHg (35-46) Arterial Blood pCO2 (Temp correct) 38 mmHg 43 mmHg Arterial Blood pO2 at Patient Temp 54 mmHg (65-108) 93 mmHg (65-108) Arterial Blood pO2 (Temp corrected) 58 mmHg 101 mmHg Arterial Blood HCO3 28 mmol/L (21-28) 26 mmol/L (21-28) Arterial Blood Base Excess 5 mmol/L (-3-3) 1 mmol/L (-3-3) FiO2 100 100 White Blood Count 7.3 x10^3/uL (4.0-11.0) Red Blood Count 4.65 x10^6/uL (3.50-5.40) Hemoglobin 13.6 g/dL (12.0-15.5) Hematocrit 42.5 % (36.0-47.0) Mean Corpuscular Volume 91 fL (79-100) Mean Corpuscular Hemoglobin 29 pg (25-35) Mean Corpuscular Hemoglobin Concent 32 g/dL (31-37) Red Cell Distribution Width 14.1 % (11.5-14.5) Platelet Count 192 x10^3/uL (140-400) Neutrophils (%) (Auto) 83 % (31-73) Lymphocytes (%) (Auto) 13 % (24-48) Monocytes (%) (Auto) 4 % (0-9) Eosinophils (%) (Auto) 0 % (0-3) Basophils (%) (Auto) 1 % (0-3) Neutrophils # (Auto) 6.0 x10^3/uL (1.8-7.7) Lymphocytes # (Auto) 1.0 x10^3/uL (1.0-4.8) Monocytes # (Auto) 0.3 x10^3/uL (0.0-1.1) Eosinophils # (Auto) 0.0 x10^3/uL (0.0-0.7) Basophils # (Auto) 0.0 x10^3/uL (0.0-0.2) Sodium Level 153 mmol/L (136-145) Potassium Level 2.7 mmol/L (3.5-5.1) Chloride Level 113 mmol/L (98-107) Carbon Dioxide Level 28 mmol/L (21-32) Anion Gap 12 (6-14) Blood Urea Nitrogen 15 mg/dL (7-20) Creatinine 1.0 mg/dL (0.6-1.0) Estimated GFR (Cockcroft-Gault) 63.6 BUN/Creatinine Ratio 15 (6-20) Glucose Level 422 mg/dL (70-99) Lactic Acid Level 1.4 mmol/L (0.4-2.0) Calcium Level 8.8 mg/dL (8.5-10.1) Total Bilirubin 0.5 mg/dL (0.2-1.0) Aspartate Amino Transf (AST/SGOT) 38 U/L (15-37) Alanine Aminotransferase (ALT/SGPT) 31 U/L (14-59) Alkaline Phosphatase 101 U/L (46-116) Troponin I Quantitative 0.102 ng/mL (0.000-0.055) EB-Pgs-D-Type Natriuretic Peptide 755 pg/mL (0-449) Total Protein 7.4 g/dL (6.4-8.2) Albumin 2.6 g/dL (3.4-5.0) Albumin/Globulin Ratio 0.5 (1.0-1.7) Prothrombin Time 12.4 SEC (11.7-14.0) Prothromb Time International Ratio 1.0 (0.8-1.1) Urine Collection Type Unknown Urine Color Yellow Urine Clarity Cloudy Urine pH 6.0 (<5.0-8.0) Urine Specific Arab >=1.030 (1.000-1.030) Urine Protein >=300 mg/dL (NEG-TRACE) Urine Glucose (UA) >=1000 mg/dL (NEG) Urine Ketones (Stick) Negative mg/dL (NEG) Urine Blood Moderate (NEG) Urine Nitrite Negative (NEG) Urine Bilirubin Negative (NEG) Urine Urobilinogen Dipstick 1.0 mg/dL (0.2 mg/dL) Urine Leukocyte Esterase Small (NEG) Urine RBC 20-40 /HPF (0-2) Urine WBC Tntc /HPF (0-4) Urine Squamous Epithelial Cells Few /LPF Urine Renal Epithelial Cells Occ /LPF Urine Bacteria Many /HPF (0-FEW) Urine Hyaline Casts Occasional /HPF Urine Granular Casts Few /HPF Urine Mucus Mod /LPF Magnesium Level 1.9 mg/dL (1.8-2.4) Acetone Level Neg (NEG) Influenza Type A Antigen Negative (NEGATIVE) Influenza Type B Antigen Negative (NEGATIVE) Test 12/30/19 07:15 12/30/19 07:57 12/30/19 10:30 12/30/19 12:14 Troponin I Quantitative 0.079 ng/mL (0.000-0.055) 0.110 ng/mL (0.000-0.055) Glucose (Fingerstick) 267 mg/dL (70-99) 224 mg/dL (70-99) Test 12/30/19 12:15 12/30/19 17:55 12/30/19 18:02 12/30/19 23:31 Heparin Anti-Xa Act, Unfractionated 0.62 IU/mL (0.30-0.70) > 1.10 IU/mL (0.30-0.70) Glucose (Fingerstick) 171 mg/dL (70-99) 114 mg/dL (70-99) Test 12/31/19 01:45 12/31/19 05:40 12/31/19 05:53 Heparin Anti-Xa Act, Unfractionated 0.22 IU/mL (0.30-0.70) White Blood Count 10.2 x10^3/uL (4.0-11.0) Red Blood Count 4.05 x10^6/uL (3.50-5.40) Hemoglobin 11.9 g/dL (12.0-15.5) Hematocrit 36.9 % (36.0-47.0) Mean Corpuscular Volume 91 fL (79-100) Mean Corpuscular Hemoglobin 29 pg (25-35) Mean Corpuscular Hemoglobin Concent 32 g/dL (31-37) Red Cell Distribution Width 14.6 % (11.5-14.5) Platelet Count 163 x10^3/uL (140-400) Neutrophils (%) (Auto) 83 % (31-73) Lymphocytes (%) (Auto) 14 % (24-48) Monocytes (%) (Auto) 3 % (0-9) Eosinophils (%) (Auto) 0 % (0-3) Basophils (%) (Auto) 0 % (0-3) Neutrophils # (Auto) 8.5 x10^3/uL (1.8-7.7) Lymphocytes # (Auto) 1.4 x10^3/uL (1.0-4.8) Monocytes # (Auto) 0.3 x10^3/uL (0.0-1.1) Eosinophils # (Auto) 0.0 x10^3/uL (0.0-0.7) Basophils # (Auto) 0.0 x10^3/uL (0.0-0.2) Sodium Level 151 mmol/L (136-145) Potassium Level 2.9 mmol/L (3.5-5.1) Chloride Level 113 mmol/L (98-107) Carbon Dioxide Level 26 mmol/L (21-32) Anion Gap 12 (6-14) Blood Urea Nitrogen 26 mg/dL (7-20) Creatinine 2.7 mg/dL (0.6-1.0) Estimated GFR (Cockcroft-Gault) 20.2 BUN/Creatinine Ratio 10 (6-20) Glucose Level 214 mg/dL (70-99) Calcium Level 7.8 mg/dL (8.5-10.1) Total Bilirubin 2.0 mg/dL (0.2-1.0) Aspartate Amino Transf (AST/SGOT) 72 U/L (15-37) Alanine Aminotransferase (ALT/SGPT) 26 U/L (14-59) Alkaline Phosphatase 86 U/L (46-116) Total Protein 6.1 g/dL (6.4-8.2) Albumin 1.6 g/dL (3.4-5.0) Albumin/Globulin Ratio 0.4 (1.0-1.7) Glucose (Fingerstick) 195 mg/dL (70-99) Laboratory Tests Test 12/30/19 10:30 12/30/19 12:14 12/30/19 12:15 12/30/19 17:55 Troponin I Quantitative 0.110 ng/mL (0.000-0.055) Glucose (Fingerstick) 224 mg/dL (70-99) Heparin Anti-Xa Act, Unfractionated 0.62 IU/mL (0.30-0.70) > 1.10 IU/mL (0.30-0.70) Test 12/30/19 18:02 12/30/19 23:31 12/31/19 01:45 12/31/19 05:40 Glucose (Fingerstick) 171 mg/dL (70-99) 114 mg/dL (70-99) Heparin Anti-Xa Act, Unfractionated 0.22 IU/mL (0.30-0.70) White Blood Count 10.2 x10^3/uL (4.0-11.0) Red Blood Count 4.05 x10^6/uL (3.50-5.40) Hemoglobin 11.9 g/dL (12.0-15.5) Hematocrit 36.9 % (36.0-47.0) Mean Corpuscular Volume 91 fL (79-100) Mean Corpuscular Hemoglobin 29 pg (25-35) Mean Corpuscular Hemoglobin Concent 32 g/dL (31-37) Red Cell Distribution Width 14.6 % (11.5-14.5) Platelet Count 163 x10^3/uL (140-400) Neutrophils (%) (Auto) 83 % (31-73) Lymphocytes (%) (Auto) 14 % (24-48) Monocytes (%) (Auto) 3 % (0-9) Eosinophils (%) (Auto) 0 % (0-3) Basophils (%) (Auto) 0 % (0-3) Neutrophils # (Auto) 8.5 x10^3/uL (1.8-7.7) Lymphocytes # (Auto) 1.4 x10^3/uL (1.0-4.8) Monocytes # (Auto) 0.3 x10^3/uL (0.0-1.1) Eosinophils # (Auto) 0.0 x10^3/uL (0.0-0.7) Basophils # (Auto) 0.0 x10^3/uL (0.0-0.2) Sodium Level 151 mmol/L (136-145) Potassium Level 2.9 mmol/L (3.5-5.1) Chloride Level 113 mmol/L (98-107) Carbon Dioxide Level 26 mmol/L (21-32) Anion Gap 12 (6-14) Blood Urea Nitrogen 26 mg/dL (7-20) Creatinine 2.7 mg/dL (0.6-1.0) Estimated GFR (Cockcroft-Gault) 20.2 BUN/Creatinine Ratio 10 (6-20) Glucose Level 214 mg/dL (70-99) Calcium Level 7.8 mg/dL (8.5-10.1) Total Bilirubin 2.0 mg/dL (0.2-1.0) Aspartate Amino Transf (AST/SGOT) 72 U/L (15-37) Alanine Aminotransferase (ALT/SGPT) 26 U/L (14-59) Alkaline Phosphatase 86 U/L (46-116) Total Protein 6.1 g/dL (6.4-8.2) Albumin 1.6 g/dL (3.4-5.0) Albumin/Globulin Ratio 0.4 (1.0-1.7) Test 12/31/19 05:53 Glucose (Fingerstick) 195 mg/dL (70-99) Medications Current Medications Acetaminophen (Tylenol Supp) 650 mg 1X ONCE [place] Last administered on 12/30/19at 01:40; Start 12/30/19 at 01:30; Stop 12/30/19 at 01:31; Status DC Vancomycin HCl (Vanco Per Pharmacy) 1 each PRN DAILY PRN MC SEE COMMENTS Last administered on 12/30/19at 04:42; Start 12/30/19 at 01:45 Levofloxacin/ Dextrose 150 ml @ 100 mls/hr 1X ONCE IV Last administered on 12/30/19at 01:58; Start 12/30/19 at 02:00; Stop 12/30/19 at 03:29; Status DC Potassium Chloride/Water 100 ml @ 50 mls/hr 1X ONCE IV ; Start 12/30/19 at 02:00; Stop 12/30/19 at 03:59; Status UNV Potassium Chloride/Water 100 ml @ 100 mls/hr Q1H IV Last administered on 12/30/19at 05:28; Start 12/30/19 at 02:00; Stop 12/30/19 at 03:59; Status DC Potassium Chloride/Dextrose 1,000 ml @ 75 mls/hr 1X ONCE IV Last administered on 12/30/19at 04:14; Start 12/30/19 at 02:30; Stop 12/30/19 at 15:49; Status DC Insulin Human Lispro (HumaLOG) 15 units 1X ONCE SQ Last administered on 12/30/19at 02:17; Start 12/30/19 at 02:30; Stop 12/30/19 at 02:31; Status DC Heparin Sodium (Porcine) (Heparin Sodium) 4,000 unit 1X ONCE IV Last administered on 12/30/19at 04:38; Start 12/30/19 at 02:30; Stop 12/30/19 at 02:31; Status DC Heparin Sodium/ Dextrose 250 ml @ 0 mls/hr CONT PRN IV PER PROTOCOL Last administered on 12/30/19at 05:46; Start 12/30/19 at 02:00 Heparin Sodium (Porcine) (Heparin Sodium) 2,050 unit PRN Q6HRS PRN IV FOR UFH LEVEL LESS THAN 0.2; Start 12/30/19 at 02:00 Info (Anti-Coagulation Monitoring By Pharmacy) 1 each PRN DAILY PRN MC SEE COMMENTS Last administered on 12/30/19at 04:37; Start 12/30/19 at 02:15 Vancomycin HCl 1.75 gm/Sodium Chloride 500 ml @ 250 mls/hr 1X ONCE IV Last administered on 12/30/19at 02:22; Start 12/30/19 at 03:00; Stop 12/30/19 at 04:59; Status DC Midazolam HCl 50 mg/Sodium Chloride 50 ml @ 0 mls/hr 1X ONCE IV ; Start 12/30/19 at 03:30; Stop 12/30/19 at 03:31; Status UNV Midazolam HCl 100 mg/Sodium Chloride 100 ml @ 0 mls/hr 1X ONCE IV Last administered on 12/30/19at 03:48; Start 12/30/19 at 04:00; Stop 12/30/19 at 04:01 ; Status DC Ondansetron HCl (Zofran) 4 mg PRN Q8HRS PRN IV NAUSEA/VOMITING; Start 12/30/19 at 04:15; Stop 12/31/19 at 04:14; Status DC Insulin Human Lispro (HumaLOG) 0-7 UNITS TIDWMEALS SQ ; Start 12/30/19 at 08:00; Stop 12/30/19 at 19:38; Status DC Dextrose (Dextrose 50%-Water Syringe) 12.5 gm PRN Q15MIN PRN IV SEE COMMENTS; Start 12/30/19 at 04:15 Fentanyl Citrate (Fentanyl 2ml Vial) 25 mcg PRN Q1HR PRN IV SEE COMMENTS; Start 12/30/19 at 04:15 Fentanyl Citrate (Fentanyl 2ml Vial) 50 mcg PRN Q1HR PRN IV SEE COMMENTS Last administered on 12/31/19at 02:05; Start 12/30/19 at 04:15 Chlorhexidine Gluconate (Peridex) 15 ml BID MM Last administered on 12/30/19at 21:25; Start 12/30/19 at 09:00 Midazolam HCl 100 ml @ 0 mls/hr CONT PRN IV SEE PROTOCOL Last administered on 12/30/19at 20:08; Start 12/30/19 at 04:15 Vancomycin HCl 1 gm/Sodium Chloride 250 ml @ 250 mls/hr Q24H IV Last adm inistered on 12/31/19at 03:16; Start 12/31/19 at 03:00 Vancomycin HCl (Vancomycin Trough Level) 1 each 1X ONCE MC ; Start 01/01/20 at 02:30; Stop 01/01/20 at 02:31 Norepinephrine Bitartrate 8 mg/ Dextrose 258 ml @ 13.197 mls/ hr 1X ONCE IV ; Start 12/30/19 at 05:00; Stop 12/31/19 at 00:32; Status DC Rocuronium [place] (Zemuron) 50 mg STK-MED ONCE .ROUTE ; Start 12/30/19 at 05:27 ; Stop 12/30/19 at 05:28; Status DC Etomidate (Amidate) 20 mg STK-MED ONCE IV ; Start 12/30/19 at 05:27; Stop 12/30/19 at 05:28; Status DC Sodium Chloride (Normal Saline Flush) 3 ml QSHIFT PRN IV AFTER MEDS AND BLOOD DRAWS; Start 12/30/19 at 12:15 Ondansetron HCl (Zofran) 4 mg PRN Q4HRS PRN IV NAUSEA/VOMITING; Start 12/30/19 at 12:15 Acetaminophen (Tylenol Supp) 650 mg PRN Q4HRS PRN [place] TEMP OVER 100.4F OR MILD PAIN Last administered on 12/30/19at 20:17; Start 12/30/19 at 12:15 Sodium Monofluorophosphate (Fleet Adult) 133 ml PRN DAILY PRN [place] CONSTIPATION; Start 12/30/19 at 12:15 Albuterol/ Ipratropium (Duoneb) 3 ml Q4HRS NEB ; Start 12/30/19 at 16:00; Stop 12/30/19 at 13:28; Status DC Pantoprazole Sodium (PROTONIX VIAL for IV PUSH) 40 mg DAILY IVP Last administered on 12/30/19at 15:18; Start 12/30/19 at 13:00 Prochlorperazine Edisylate (Compazine) 5 mg PRN Q6HRS PRN IVP NAUSEA/VOMITING 2ND CHOICE; Start 12/30/19 at 12:30 Info (Icu Electrolyte Protocol) 1 ea DAILY MC Last administered on 12/31/19at 06:40; Start 12/31/19 at 09:00 Sodium Chloride (Normal Saline Flush) 3 ml QSHIFT PRN IV AFTER MEDS AND BLOOD DRAWS; Start 12/30/19 at 12:30 Bisacodyl (Dulcolax Supp) 10 mg PRN DAILY PRN [place] CONSTIPATION; Start 12/30/19 at 12:30 Albuterol Sulfate (Ventolin Neb Soln) 2.5 mg PRN Q4HRS PRN NEB SHORTNESS OF BREATH; Start 12/30/19 at 13:45 Piperacillin Sod/ Tazobactam Sod 3.375 gm/Sodium Chloride 50 ml @ 100 mls/hr Q6HRS IV Last administered on 12/31/19at 06:02; Start 12/30/19 at 16:00 Ringer's Solution 1,000 ml @ 100 mls/hr Q10H IV Last administered on 12/31/19at 05:08; Start 12/30/19 at 18:30 Insulin Human Lispro (HumaLOG) 0-7 UNITS Q6HRS SQ ; Start 12/31/19 at 00:00 Fentanyl Citrate 30 ml @ 0 mls/hr CONT PRN IV SEE PROTOCOL Last administered on 12/31/19at 04:07; Start 12/31/19 at 04:00 Potassium Chloride/Water 100 ml @ 100 mls/hr Q1H IV Last administered on 12/31/19at 06:50; Start 12/31/19 at 07:00; Stop 12/31/19 at 10:59 Active Scripts Active Reported Senna (Sennosides) 8.6 Mg Tablet 8.6 Mg PO BID Miralax (Polyethylene Glycol 3350) 17 Gm Powd.pack 1 Packet PO DAILY Milk Of Magnesia (Magnesium Hydroxide) 400 Mg/5 Ml Oral.susp 400 Mg PO DAILY Melatonin 3 Mg Tablet 1 Tab PO QHS Acetaminophen 325 Mg Tablet 650 Mg PO PRN Q4HRS PRN Keppra (Levetiracetam) 500 Mg Tablet 750 Mg PO BID Amlodipine Besylate 10 Mg Tablet 10 Mg PO DAILY Vitals/I & O Vital Sign - Last 24 Hours 12/30/19 12/30/19 12/30/19 12/30/19 09:00 10:00 11:00 11:25 Pulse 90 92 108 Resp 18 18 21 B/P (MAP) 129/80 (96) 112/75 (87) 103/81 (88) Pulse Ox 99 99 98 100 O2 Delivery Ventilator Ventilator Ventilator Ventilator 12/30/19 12/30/19 12/30/19 12/30/19 12:00 12:00 13:00 14:00 Temp 100.3 100.3 Pulse 101 81 97 Resp 18 18 18 B/P (MAP) 103/74 (84) 114/82 (93) 115/77 (90) Pulse Ox 100 100 100 O2 Delivery Mechanical Ventilator Ventilator Ventilator Ventilator 12/30/19 12/30/19 12/30/19 12/30/19 15:00 15:32 16:00 16:00 Temp 100.1 100.1 Pulse 95 93 Resp 21 18 B/P (MAP) 119/81 (94) 119/84 (96) Pulse Ox 100 95 100 O2 Delivery Ventilator Ventilator Ventilator Mechanical Ventilator 12/30/19 12/30/19 12/30/19 12/30/19 17:00 18:00 19:00 20:00 Temp 103.3 103.3 Pulse 98 100 102 100 Resp 23 21 24 24 B/P (MAP) 119/88 (98) 117/59 (78) 140/97 (111) 129/90 (103) Pulse Ox 100 100 100 100 O2 Delivery Ventilator Ventilator Ventilator Ventilator 12/30/19 12/30/19 12/30/19 12/30/19 20:00 20:03 21:00 22:00 Temp 99.9 99.9 Pulse 98 99 Resp 18 20 B/P (MAP) 97/66 (76) 102/69 (80) Pulse Ox 100 100 100 O2 Delivery Mechanical Ventilator Ventilator Ventilator Ventilator 12/30/19 12/30/19 12/30/19 12/30/19 23:00 23:47 23:59 23:59 Temp 101.5 101.5 Pulse 103 100 Resp 24 25 20 B/P (MAP) 139/88 (105) 97/67 (77) Pulse Ox 100 100 100 O2 Delivery Ventilator Ventilator Ventilator Mechanical Ventilator 12/31/19 12/31/19 12/31/19 12/31/19 00:10 00:19 01:00 02:00 Temp 100.4 100.4 100.4 100.4 Pulse 108 110 Resp 20 28 30 B/P (MAP) 160/79 (106) 148/82 (104) Pulse Ox 100 100 100 100 O2 Delivery Ventilator Ventilator Ventilator Ventilator 12/31/19 12/31/19 12/31/19 12/31/19 02:05 02:35 03:00 04:00 Temp 100.4 100.4 Pulse 96 96 Resp 30 20 22 30 B/P (MAP) 108/69 (82) 124/87 (99) Pulse Ox 100 100 100 100 O2 Delivery Ventilator Ventilator Ventilator 12/31/19 12/31/19 12/31/19 12/31/19 04:00 04:07 04:34 04:35 Resp 28 20 Pulse Ox 100 100 100 O2 Delivery Mechanical Ventilator Ventilator Ventilator 12/31/19 12/31/19 12/31/19 12/31/19 05:00 06:00 07:00 07:35 Pulse 88 84 82 Resp 18 18 18 B/P (MAP) 100/69 (79) 92/67 (75) 99/69 (79) Pulse Ox 100 100 100 100 O2 Delivery Ventilator Ventilator Ventilator Ventilator Intake and Output 12/30/19 12/30/19 12/31/19 15:00 23:00 07:00 Intake Total 1137 ml 1676 ml Output Total 35 ml 260 ml 510 ml Balance -35 ml 877 ml 1166 ml GRISEL TEJEDA MD Dec 31, 2019 08:36
[2019-12-31 08:44] LABS: FIO2 ABG 100
[2019-12-31] MEDS ORDERED: MIDAZOLAM PREMIX 100 MG/100 ML NS BAG. IV ONE (09:39)
[2019-12-31] MEDS ORDERED: NOREPINEPHRINE VIAL 8 MG in IV DEXTROSE 5% 250 ML IV PRN (10:15)
--- NOTE | 2019-12-31 10:36 | PDOC2 ---
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 Padilla SOURCE Source: Caregiver, Chart review HISTORY OF PRESENT ILLNESS HISTORY OF PRESENT ILLNESS This is an 84 yo female who presented from [facility] secondary to shortness of breath, respiratory distress. Patient's roommate in COVID +. Upon arrival was febrile, tachypneic, and hypoxia on 15L. Did not follow commands. Was intubated in ED. Troponin noted to be mildly elevated, which prompted this consult. Patient was placed on heparin gtt. PAST MEDICAL HISTORY Cardiovascular: HTN, Hyperlipidemia CENTRAL NERVOUS SYSTEM: CVA, Dementia, Seizure Endocrine: Diabetes PAST SURGICAL HISTORY Past Surgical History: Other (ventriculoperitoneal shunt) FAMILY HISTORY Family History: Family History Unknown SOCIAL HISTORY Smoke: Quit ALCOHOL: none Drugs: None Lives: Jail CURRENT MEDICATIONS CURRENT MEDICATIONS Current Medications Medications (Trade) Dose Ordered Sig/Akiko Route PRN Reason Start Time Stop Time Status Last Admin Dose Admin Vancomycin HCl 1 gm/Sodium Chloride 250 ml @ 250 mls/hr Q24H IV 12/31/19 03:00 12/31/19 03:16 Acetaminophen (Tylenol Supp) 650 mg PRN Q4HRS PRN MI TEMP OVER 100.4F OR MILD PAIN 12/30/19 12:15 12/30/19 20:17 Pantoprazole Sodium (PROTONIX VIAL for IV PUSH) 40 mg DAILY IVP 12/30/19 13:00 12/31/19 08:30 Info (Icu Electrolyte Protocol) 1 ea DAILY MC 12/31/19 09:00 12/31/19 06:40 Piperacillin Sod/ Tazobactam Sod 3.375 gm/Sodium Chloride 50 ml @ 100 mls/hr Q6HRS IV 12/30/19 16:00 12/31/19 09:00 DC 12/31/19 06:02 Ringer's Solution 1,000 ml @ 100 mls/hr Q10H IV 12/30/19 18:30 12/31/19 05:08 Fentanyl Citrate 30 ml @ 0 mls/hr CONT PRN IV SEE PROTOCOL 12/31/19 04:00 12/31/19 04:07 Potassium Chloride/Water 100 ml @ 100 mls/hr Q1H IV 12/31/19 07:00 12/31/19 10:59 12/31/19 10:10 ALLERGIES ALLERGIES: Coded Allergies: No Known Drug Allergies (Unverified , 01/07/14) ROS Review of System unobtainable. PHYSICAL EXAM PHYSICAL EXAM visual exam conducted. d/w RN General: Other (sedated ) HEENT: Atraumatic, Other (intubated ) Lungs: Other (mechanical ventilation) Extremities: No edema Skin: No significant lesion Neuro: Other (sedated ) Psych/Mental Status: Other (unable to assess ) MUSCULOSKELETAL: Osteoarthritic changes both hands VITALS/I&O VITALS/I&O: Vital Signs Date Time Temp Pulse Resp B/P (MAP) Pulse Ox O2 Delivery O2 Flow Rate FiO2 12/31/19 07:35 100 Ventilator 12/31/19 07:00 82 18 99/69 (79) 12/31/19 04:00 100.4 100.4 I & O 12/30/19 12/30/19 12/31/19 15:00 23:00 07:00 Intake Total 1137 ml 1676 ml Output Total 35 ml 260 ml 510 ml Balance -35 ml 877 ml 1166 ml LABS Lab: Laboratory Tests Test 12/30/19 10:30 12/30/19 12:14 12/30/19 12:15 12/30/19 17:55 Troponin I Quantitative 0.110 ng/mL (0.000-0.055) Glucose (Fingerstick) 224 mg/dL (70-99) H Heparin Anti-Xa Act, Unfractionated 0.62 IU/mL (0.30-0.70) > 1.10 IU/mL (0.30-0.70) *H Test 12/30/19 18:02 12/30/19 23:31 12/31/19 01:45 12/31/19 05:40 Glucose (Fingerstick) 171 mg/dL (70-99) H 114 mg/dL (70-99) H Heparin Anti-Xa Act, Unfractionated 0.22 IU/mL (0.30-0.70) L White Blood Count 10.2 x10^3/uL (4.0-11.0) Red Blood Count 4.05 x10^6/uL (3.50-5.40) Hemoglobin 11.9 g/dL (12.0-15.5) L Hematocrit 36.9 % (36.0-47.0) Mean Corpuscular Volume 91 fL (79-100) Mean Corpuscular Hemoglobin 29 pg (25-35) Mean Corpuscular Hemoglobin Concent 32 g/dL (31-37) Red Cell Distribution Width 14.6 % (11.5-14.5) H Platelet Count 163 x10^3/uL (140-400) Neutrophils (%) (Auto) 83 % (31-73) H Lymphocytes (%) (Auto) 14 % (24-48) L Monocytes (%) (Auto) 3 % (0-9) Eosinophils (%) (Auto) 0 % (0-3) Basophils (%) (Auto) 0 % (0-3) Neutrophils # (Auto) 8.5 x10^3/uL (1.8-7.7) H Lymphocytes # (Auto) 1.4 x10^3/uL (1.0-4.8) Monocytes # (Auto) 0.3 x10^3/uL (0.0-1.1) Eosinophils # (Auto) 0.0 x10^3/uL (0.0-0.7) Basophils # (Auto) 0.0 x10^3/uL (0.0-0.2) Sodium Level 151 mmol/L (136-145) H Potassium Level 2.9 mmol/L (3.5-5.1) *L Chloride Level 113 mmol/L (98-107) H Carbon Dioxide Level 26 mmol/L (21-32) Anion Gap 12 (6-14) Blood Urea Nitrogen 26 mg/dL (7-20) H Creatinine 2.7 mg/dL (0.6-1.0) H Estimated GFR (Cockcroft-Gault) 20.2 BUN/Creatinine Ratio 10 (6-20) Glucose Level 214 mg/dL (70-99) H Calcium Level 7.8 mg/dL (8.5-10.1) L Total Bilirubin 2.0 mg/dL (0.2-1.0) H Aspartate Amino Transferase (AST) 72 U/L (15-37) H Alanine Aminotransferase (ALT) 26 U/L (14-59) Alkaline Phosphatase 86 U/L (46-116) Total Protein 6.1 g/dL (6.4-8.2) L Albumin 1.6 g/dL (3.4-5.0) L Albumin/Globulin Ratio 0.4 (1.0-1.7) L Test 12/31/19 05:53 12/31/19 07:35 12/31/19 08:30 Glucose (Fingerstick) 195 mg/dL (70-99) H O2 Saturation 99 % (92-99) Arterial Blood pH 7.39 (7.35-7.45) Arterial Blood pCO2 at Patient Temp 42 mmHg (35-46) Arterial Blood pO2 at Patient Temp 163 mmHg (65-108) H Arterial Blood HCO3 25 mmol/L (21-28) Arterial Blood Base Excess -1 mmol/L (-3-3) FiO2 100 Heparin Anti-Xa Act, Unfractionated 0.67 IU/mL (0.30-0.70) Laboratory Tests 12/31/19 05:40 Laboratory Tests 12/31/19 05:40 ASSESSMENT/PLAN ASSESSMENT/PLAN 1. Acute respiratory failure secondary to ARDS, PNA, probable COVID. Roommate at [facility] + 2. Fevers, sepsis. BC 09/22 GPC 3. Mild troponin elevated; peak 0.1. Most probably type II, demand ischemia in setting of above 4. Hypokalemia, hypernatremia 5. KRZYSZTOF; IVFs 6. Hypertension; marginal 7. Hyperlipidemia 8. Diabetes, II 9. H/o CVA 10. Dementia 11. H/o seizures 12. 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 KRYSTIAN MEJIA MD 12/31/19 1723: CARDIAC CONSULT ASSESSMENT/PLAN ASSESSMENT/PLAN Patient seen and examined. Agree with CENTRAL STATION OPERATOR's assessment and plan. Slight trop elevation probably demand ischemia. Agree with stopping heparin gtt Continue treatment for ARDS, vent management per pulm team Thank you for your consultation MAGI CHACON APRN Dec 31, 2019 10:36 KRYSTIAN MEJIA MD Dec 31, 2019 17:23
--- NOTE | 2019-12-31 11:32 | NUR ---
1120 Conversation per phone w daughter on patient status/changes/ care. Questions answered as needed. Cont current POC
[2019-12-31] MEDS: PIPERACILLIN/TAZOBACTAM 2.25 GM in IV NORMAL SALINE 50ML 50 ML IV SCH ×2 (12:00→16:17)
--- NOTE | 2019-12-31 12:06 | NUR ---
SW following. Discussed with RN. 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 Pt tested positive for COVID-19, pt on a vent. SW will continue to follow.
[2019-12-31] MEDS ORDERED: MAGNESIUM SULFATE 2GM 50 ML IV ONE (16:00)
--- NOTE | 2019-12-31 16:17 | NUR ---
IP: Pt is COVID + requiring airborne/contact precautions using a face shield.
--- NOTE | 2019-12-31 18:17 | NUR ---
Low dose levo started late morning and titrated to low dose maintaining SBP> 100. Prone position 1200 wpillow support a needed. FIo2 titrated 90% after ABG reported. TF orders noted... will begin after prone positioning complete.Afebrile starting at shift change w gradual decline thru the day. Discussed code status w daughter earlier. Wishes to keep status as is.
--- NOTE | 2019-12-31 20:45 | NUR ---
ABG's drawn to check 8 hours post prone position: pH 7.36, [id number], pO2 57.7, HCO3 24.9, BE -0.7. Patient's oxygen increased to 100% per RT suggestion.
[2019-12-31 20:49] LABS: BASE EXCESS ABG -1 mmol/L (-3-3); HCO3 ABG 25 mmol/L (21-28); PCO2 ABG 45 mmHg (35-46); PO2 ABG 58 mmHg (65-108); SAT O2 ABG 90 % (92-99)
[2019-12-31 20:50] LABS: FIO2 ABG 90
--- NOTE | 2019-12-31 21:15 | NUR ---
Patient with recent history of Subdural hematoma 10/2019 and history of seizures; per Dr Vasquez's note, patient to be started on Keppra and Neuro consulted but orders not seen. Paged Dr Ferrer, returned page, notified of above; discussed consulting Neuro and administering Kepra per OG but patient is in prone position and tube feeding will not be started until patient supine at ~0400. Orders received to discuss Neuro consult in am with Dr Vasquez, give Keppra 750MG IV x1 now and start Keppra 750MG per OG BID. See orders.
[2019-12-31] MEDS ORDERED: levETIRAcetam 750 MG in IV DEXTROSE 5% 100ML 100 ML IV ONE (22:00)
[2020-01-01] VITALS (34 sets, daily range): BP systolic 82–140; BP diastolic 52–99
[2020-01-01] MEDS: PIPERACILLIN/TAZOBACTAM 2.25 GM in IV NORMAL SALINE 50ML 50 ML IV SCH ×4 (00:02→17:34)
[2020-01-01] MEDS: INSULIN LISPRO 300 UNITS/3 ML VIAL. SQ SCH ×4 (00:10→17:34)
[2020-01-01] MEDS: IV RINGERS,LACTATED 1000ML 1,000 ML IV SCH ×3 (02:19→21:25)
[2020-01-01 02:42] LABS: CALCIUM 7.9 mg/dL (8.5-10.1); CREATININE 3.5 mg/dL (0.6-1.0); MAGNESIUM 2.1 mg/dL (1.8-2.4)
[2020-01-01 02:46] LABS: VANC TR 25.2 mcg/mL (10.0-20.0)
--- NOTE | 2020-01-01 02:55 | NUR ---
Vancomycin trough drawn at 0215 resulted 25.2, notified pharmacist--0300 Vanc 1GM dose held per pharmacist. Pharmacy will redose/retime.
[2020-01-01] MEDS: VANCOMYCIN PER PHARMACY MC PRN ×2 (03:36→15:44)
--- NOTE | 2020-01-01 03:36 | NUR ---
Pharmacy Vancomycin Dosing Note S:Consulted to monitor and dose vancomycin started 12/30/19. O:ALAN LEE is a 84 year old F with HCAP . Height: 5 feet, 4 inches Weight: 65.9 kg Central Body Weight: 54.70 Adjusted Body Weight: 59.18 Dosing Weight: Actual Other Antibiotics: LEVOFLOXACIN X1 ED ZOSYN 2.25 Q6H STARTED BY PULMONARY LABS: Last BUN: 15 Last Creatinine: 3.5 Creatinine Clearance: 38 mL/min Last WBC: 7.3 Last Procalcitonin: Tmax (past 24 hours): Microbiology: I/O: Drug Levels: Last Trough level: 25.2 on 01/01/20 at 0230 Last dose given 12/30/19 at 0230 Vancomycin Dosing: Loading Dose: 1750 mg x1 Dosing Weight: Actual Target Trough: 15-20 A: Based on: TROUGH AND SCR P: 1. Hold Vancomycin 1000 mg IV Dose Per Levels 2. Follow up Trough level on 01/01/20 at 1500 3. Pharmacy will continue to monitor, follow and adjust therapy as needed. MARIAH FAULKNER RPH, 01/01/20 0336 Signed: 01/01/20 at 0337 by MARIAH FAULKNER RPH PHA
[2020-01-01] MEDS: MIDAZOLAM 100mg/100ml NS BAG 100 ML IV PRN (06:03)
--- NOTE | 2020-01-01 07:33 | PDOC ---
PROGRESS NOTES Chief Complaint Chief Complaint A/P: Acute hypoxic respiratory failure Severe sepsis Elevated troponin Hypernatremia Hypokalemia H/o subdural hematoma - prior ever holes noted. recent left frontal convexity subdural hematoma 5 mm-->7mm. History of Alzheimer's - not on meds due to long-standing disease History of epilepsy, on levetiracetam - will continue 750mg BID. 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 She presents during the global COVID-19 pandemic. Diagnosis of COVID-19 was suspected of upfront. The patient is currently being treated with current guidelines. We will continue support with assist control ventilation. We will start hydroxychloroquine. Hold off on Zithromax for possible complications of QT interval prolongation. History of Present Illness History of Present Illness Ms Kumar is an 84yo F intermediate SNF resident w/ PMHx Constipation, CVA, Alzheimer Dementia, Diabetes-Type 2, Seizures, s/p ventriculoperitoneal shunt placement who presents with complaints of respiratory distress. Patient is a resident of [facility], roommate is positive for COVID, patient has been tested twice of which is been negative however she presented with fever 102 rectally, tachypnea with respiratory rate in the 40s, saturations on 15 L of 88 to 90%. ED physician discussed resuscitation efforts with the daughter and with O2 saturations high 80's to 90's on 15 L NRB and Xray with evidence of bilateral consolidation she would like to proceed with full resuscitative efforts and patient was emergently intubated in ED and admitted to ICU. Na 153, potassium 2.7, chloride 113 - D5w with 20k at 75ml/hr, BS 422 - 10 units sq of insulin, Abx (vancomycin, Levaquin), Heparin gtt initiated given elevated troponin, likely 2/2 resp distress and demand ischemia [11/06/2019 admitted for fall with CT head revealing a new SDH, acute left frontal convexity subdural hematoma measuring 5 mm in thickness. Minimal mass effect.] Consults: Pulmonology, Cardiology 12/30: Overnight Tmax 101.5F. Intubated and sedated on vent FiO2 100%, PEEP 8 with ABG with PO2 of 136 this morning. CXR unchanged. K 2.9 this morning. Na 151. Blood Culture with GPC 1/4 positive. SARS-CoV-2 (COVID 19) Positive PCR test. Overnight proned with significant O2 desaturations, was placed back on increased sedation and FIO2 100% again. Very sedated. Plan: Decreas FIO2 to 70%, will defer to pulm to adjust PEEP. Wean sedation, she is very somnolent Free water 150cc q4hrs to correct free water deficit. Vital AF TF ok. K replacement protocol, central line Stopped heparin GTT Vitals Vitals Vital Signs Date Time Temp Pulse Resp B/P (MAP) Pulse Ox O2 Delivery O2 Flow Rate FiO2 01/01/20 07:00 96 24 137/89 (105) 94 Ventilator 01/01/20 05:00 98.9 98.9 Physical Exam General: Other (sedated ) Heart: Regular rate, Normal S1 Lungs: Crackles Abdomen: Soft Extremities: No edema Skin: No significant lesion Labs LABS Laboratory Tests Test 12/31/19 07:35 12/31/19 08:30 12/31/19 12:27 12/31/19 16:31 O2 Saturation 99 % (92-99) Arterial Blood pH 7.39 (7.35-7.45) Arterial Blood pCO2 at Patient Temp 42 mmHg (35-46) Arterial Blood pO2 at Patient Temp 163 mmHg (65-108) Arterial Blood HCO3 25 mmol/L (21-28) Arterial Blood Base Excess -1 mmol/L (-3-3) FiO2 100 Heparin Anti-Xa Act, Unfractionated 0.67 IU/mL (0.30-0.70) Glucose (Fingerstick) 185 mg/dL (70-99) 162 mg/dL (70-99) Test 12/31/19 20:35 01/01/20 00:06 01/01/20 02:15 O2 Saturation 90 % (92-99) Arterial Blood pH 7.36 (7.35-7.45) Arterial Blood pCO2 at Patient Temp 45 mmHg (35-46) Arterial Blood pO2 at Patient Temp 58 mmHg (65-108) Arterial Blood HCO3 25 mmol/L (21-28) Arterial Blood Base Excess -1 mmol/L (-3-3) FiO2 90 Glucose (Fingerstick) 140 mg/dL (70-99) Sodium Level 149 mmol/L (136-145) Potassium Level 4.0 mmol/L (3.5-5.1) Chloride Level 113 mmol/L (98-107) Carbon Dioxide Level 24 mmol/L (21-32) Anion Gap 12 (6-14) Blood Urea Nitrogen 37 mg/dL (7-20) Creatinine 3.5 mg/dL (0.6-1.0) Estimated GFR (Cockcroft-Gault) 15.0 Glucose Level 168 mg/dL (70-99) Calcium Level 7.9 mg/dL (8.5-10.1) Magnesium Level 2.1 mg/dL (1.8-2.4) Vancomycin Level Trough 25.2 mcg/mL (10.0-20.0) Vancomycin Last Dose Date Unk Vancomycin Last Dose Time Unk Assessment and Plan Assessmemt and Plan Problems Medical Problems: (1) Acute respiratory failure Status: Acute (2) Elevated troponin Status: Acute Comment Review of Relevant I have reviewed the following items beau (where applicable) has been applied. Labs Laboratory Tests Test 12/30/19 07:57 12/30/19 10:30 12/30/19 12:14 12/30/19 12:15 Glucose (Fingerstick) 267 mg/dL (70-99) 224 mg/dL (70-99) Troponin I Quantitative 0.110 ng/mL (0.000-0.055) Heparin Anti-Xa Act, Unfractionated 0.62 IU/mL (0.30-0.70) Test 12/30/19 15:30 12/30/19 17:55 12/30/19 18:02 12/30/19 23:31 Nasal Screen MRSA (PCR) Negative (Negative) Heparin Anti-Xa Act, Unfractionated > 1.10 IU/mL (0.30-0.70) Glucose (Fingerstick) 171 mg/dL (70-99) 114 mg/dL (70-99) Test 12/31/19 01:45 12/31/19 05:40 12/31/19 05:53 12/31/19 07:35 Heparin Anti-Xa Act, Unfractionated 0.22 IU/mL (0.30-0.70) White Blood Count 10.2 x10^3/uL (4.0-11.0) Red Blood Count 4.05 x10^6/uL (3.50-5.40) Hemoglobin 11.9 g/dL (12.0-15.5) Hematocrit 36.9 % (36.0-47.0) Mean Corpuscular Volume 91 fL (79-100) Mean Corpuscular Hemoglobin 29 pg (25-35) Mean Corpuscular Hemoglobin Concent 32 g/dL (31-37) Red Cell Distribution Width 14.6 % (11.5-14.5) Platelet Count 163 x10^3/uL (140-400) Neutrophils (%) (Auto) 83 % (31-73) Lymphocytes (%) (Auto) 14 % (24-48) Monocytes (%) (Auto) 3 % (0-9) Eosinophils (%) (Auto) 0 % (0-3) Basophils (%) (Auto) 0 % (0-3) Neutrophils # (Auto) 8.5 x10^3/uL (1.8-7.7) Lymphocytes # (Auto) 1.4 x10^3/uL (1.0-4.8) Monocytes # (Auto) 0.3 x10^3/uL (0.0-1.1) Eosinophils # (Auto) 0.0 x10^3/uL (0.0-0.7) Basophils # (Auto) 0.0 x10^3/uL (0.0-0.2) Sodium Level 151 mmol/L (136-145) Potassium Level 2.9 mmol/L (3.5-5.1) Chloride Level 113 mmol/L (98-107) Carbon Dioxide Level 26 mmol/L (21-32) Anion Gap 12 (6-14) Blood Urea Nitrogen 26 mg/dL (7-20) Creatinine 2.7 mg/dL (0.6-1.0) Estimated GFR (Cockcroft-Gault) 20.2 BUN/Creatinine Ratio 10 (6-20) Glucose Level 214 mg/dL (70-99) Calcium Level 7.8 mg/dL (8.5-10.1) Magnesium Level 1.4 mg/dL (1.8-2.4) Total Bilirubin 2.0 mg/dL (0.2-1.0) Aspartate Amino Transf (AST/SGOT) 72 U/L (15-37) Alanine Aminotransferase (ALT/SGPT) 26 U/L (14-59) Alkaline Phosphatase 86 U/L (46-116) Total Protein 6.1 g/dL (6.4-8.2) Albumin 1.6 g/dL (3.4-5.0) Albumin/Globulin Ratio 0.4 (1.0-1.7) Glucose (Fingerstick) 195 mg/dL (70-99) O2 Saturation 99 % (92-99) Arterial Blood pH 7.39 (7.35-7.45) Arterial Blood pCO2 at Patient Temp 42 mmHg (35-46) Arterial Blood pO2 at Patient Temp 163 mmHg (65-108) Arterial Blood HCO3 25 mmol/L (21-28) Arterial Blood Base Excess -1 mmol/L (-3-3) FiO2 100 Test 12/31/19 08:30 12/31/19 12:27 12/31/19 16:31 12/31/19 20:35 Heparin Anti-Xa Act, Unfractionated 0.67 IU/mL (0.30-0.70) Glucose (Fingerstick) 185 mg/dL (70-99) 162 mg/dL (70-99) O2 Saturation 90 % (92-99) Arterial Blood pH 7.36 (7.35-7.45) Arterial Blood pCO2 at Patient Temp 45 mmHg (35-46) Arterial Blood pO2 at Patient Temp 58 mmHg (65-108) Arterial Blood HCO3 25 mmol/L (21-28) Arterial Blood Base Excess -1 mmol/L (-3-3) FiO2 90 Test 01/01/20 00:06 01/01/20 02:15 Glucose (Fingerstick) 140 mg/dL (70-99) Sodium Level 149 mmol/L (136-145) Potassium Level 4.0 mmol/L (3.5-5.1) Chloride Level 113 mmol/L (98-107) Carbon Dioxide Level 24 mmol/L (21-32) Anion Gap 12 (6-14) Blood Urea Nitrogen 37 mg/dL (7-20) Creatinine 3.5 mg/dL (0.6-1.0) Estimated GFR (Cockcroft-Gault) 15.0 Glucose Level 168 mg/dL (70-99) Calcium Level 7.9 mg/dL (8.5-10.1) Magnesium Level 2.1 mg/dL (1.8-2.4) Vancomycin Level Trough 25.2 mcg/mL (10.0-20.0) Vancomycin Last Dose Date Unk Vancomycin Last Dose Time Unk Laboratory Tests Test 12/31/19 07:35 12/31/19 08:30 12/31/19 12:27 12/31/19 16:31 O2 Saturation 99 % (92-99) Arterial Blood pH 7.39 (7.35-7.45) Arterial Blood pCO2 at Patient Temp 42 mmHg (35-46) Arterial Blood pO2 at Patient Temp 163 mmHg (65-108) Arterial Blood HCO3 25 mmol/L (21-28) Arterial Blood Base Excess -1 mmol/L (-3-3) FiO2 100 Heparin Anti-Xa Act, Unfractionated 0.67 IU/mL (0.30-0.70) Glucose (Fingerstick) 185 mg/dL (70-99) 162 mg/dL (70-99) Test 12/31/19 20:35 01/01/20 00:06 01/01/20 02:15 O2 Saturation 90 % (92-99) Arterial Blood pH 7.36 (7.35-7.45) Arterial Blood pCO2 at Patient Temp 45 mmHg (35-46) Arterial Blood pO2 at Patient Temp 58 mmHg (65-108) Arterial Blood HCO3 25 mmol/L (21-28) Arterial Blood Base Excess -1 mmol/L (-3-3) FiO2 90 Glucose (Fingerstick) 140 mg/dL (70-99) Sodium Level 149 mmol/L (136-145) Potassium Level 4.0 mmol/L (3.5-5.1) Chloride Level 113 mmol/L (98-107) Carbon Dioxide Level 24 mmol/L (21-32) Anion Gap 12 (6-14) Blood Urea Nitrogen 37 mg/dL (7-20) Creatinine 3.5 mg/dL (0.6-1.0) Estimated GFR (Cockcroft-Gault) 15.0 Glucose Level 168 mg/dL (70-99) Calcium Level 7.9 mg/dL (8.5-10.1) Magnesium Level 2.1 mg/dL (1.8-2.4) Vancomycin Level Trough 25.2 mcg/mL (10.0-20.0) Vancomycin Last Dose Date Unk Vancomycin Last Dose Time Unk Microbiology 12/30/19 Blood Culture - Final, Complete Medications Current Medications Acetaminophen (Tylenol Supp) 650 mg 1X ONCE MD Last administered on 12/30/19at 01:40; Start 12/30/19 at 01:30; Stop 12/30/19 at 01:31; Status DC Vancomycin HCl (Vanco Per Pharmacy) 1 each PRN DAILY PRN MC SEE COMMENTS Last administered on 01/01/20at 03:36; Start 12/30/19 at 01:45 Levofloxacin/ Dextrose 150 ml @ 100 mls/hr 1X ONCE IV Last administered on 12/30/19at 01:58; Start 12/30/19 at 02:00; Stop 12/30/19 at 03:29; Status DC Potassium Chloride/Water 100 ml @ 50 mls/hr 1X ONCE IV ; Start 12/30/19 at 02:00; Stop 12/30/19 at 03:59; Status UNV Potassium Chloride/Water 100 ml @ 100 mls/hr Q1H IV Last administered on 12/30/19at 05:28; Start 12/30/19 at 02:00; Stop 12/30/19 at 03:59; Status DC Potassium Chloride/Dextrose 1,000 ml @ 75 mls/hr 1X ONCE IV Last administered on 12/30/19at 04:14; Start 12/30/19 at 02:30; Stop 12/30/19 at 15:49; Status DC Insulin Human Lispro (HumaLOG) 15 units 1X ONCE SQ Last administered on 12/30/19at 02:17; Start 12/30/19 at 02:30; Stop 12/30/19 at 02:31; Status DC Heparin Sodium (Porcine) (Heparin Sodium) 4,000 unit 1X ONCE IV Last administered on 12/30/19at 04:38; Start 12/30/19 at 02:30; Stop 12/30/19 at 02:31; Status DC Heparin Sodium/ Dextrose 250 ml @ 0 mls/hr CONT PRN IV PER PROTOCOL Last administered on 12/30/19at 05:46; Start 12/30/19 at 02:00; Stop 12/31/19 at 09:47; Status DC Heparin Sodium (Porcine) (Heparin Sodium) 2,050 unit PRN Q6HRS PRN IV FOR UFH LEVEL LESS THAN 0.2; Start 12/30/19 at 02:00; Stop 12/31/19 at 09:47; Status DC Info (Anti-Coagulation Monitoring By Pharmacy) 1 each PRN DAILY PRN MC SEE COMMENTS Last administered on 12/30/19at 04:37; Start 12/30/19 at 02:15 Vancomycin HCl 1.75 gm/Sodium Chloride 500 ml @ 250 mls/hr 1X ONCE IV Last administered on 12/30/19at 02:22; Start 12/30/19 at 03:00; Stop 12/30/19 at 04:59; Status DC Midazolam HCl 50 mg/Sodium Chloride 50 ml @ 0 mls/hr 1X ONCE IV ; Start 12/30/19 at 03:30; Stop 12/30/19 at 03:31; Status UNV Midazolam HCl 100 mg/Sodium Chloride 100 ml @ 0 mls/hr 1X ONCE IV Last administered on 12/30/19at 03:48; Start 12/30/19 at 04:00; Stop 12/30/19 at 04:01; Status DC Ondansetron HCl (Zofran) 4 mg PRN Q8HRS PRN IV NAUSEA/VOMITING; Start 12/30/19 at 04:15; Stop 12/31/19 at 04:14; Status DC Insulin Human Lispro (HumaLOG) 0-7 UNITS TIDWMEALS SQ ; Start 12/30/19 at 08:00; Stop 12/30/19 at 19:38; Status DC Dextrose (Dextrose 50%-Water Syringe) 12.5 gm PRN Q15MIN PRN IV SEE COMMENTS; Start 12/30/19 at 04:15 Fentanyl Citrate (Fentanyl 2ml Vial) 25 mcg PRN Q1HR PRN IV SEE COMMENTS; Start 12/30/19 at 04:15 Fentanyl Citrate (Fentanyl 2ml Vial) 50 mcg PRN Q1HR PRN IV SEE COMMENTS Last administered on 12/31/19at 02:05; Start 12/30/19 at 04:15 Chlorhexidine Gluconate (Peridex) 15 ml BID MM Last administered on 12/30/19at 21:25; Start 12/30/19 at 09:00; Stop 12/31/19 at 10:08; Status DC Midazolam HCl 100 ml @ 0 mls/hr CONT PRN IV SEE PROTOCOL Last administered on 01/01/20at 06:03; Start 12/30/19 at 04:15 Vancomycin HCl 1 gm/Sodium Chloride 250 ml @ 250 mls/hr Q24H IV Last administered on 12/31/19at 03:16; Start 12/31/19 at 03:00; Stop 01/01/20 at 02:57; Status DC Vancomycin HCl (Vancomycin Trough Level) 1 each 1X ONCE MC Last administered on 01/01/20at 02:15; Start 01/01/20 at 02:30; Stop 01/01/20 at 02:31; Status DC Norepinephrine Bitartrate 8 mg/ Dextrose 258 ml @ 13.197 mls/ hr 1X ONCE IV ; Start 12/30/19 at 05:00; Stop 12/31/19 at 00:32; Status DC Rocuronium Magnolia (Zemuron) 50 mg STK-MED ONCE .ROUTE ; Start 12/30/19 at 05:27; Stop 12/30/19 at 05:28; Status DC Etomidate (Amidate) 20 mg STK-MED ONCE IV ; Start 12/30/19 at 05:27; Stop 12/30/19 at 05:28; Status DC Sodium Chloride (Normal Saline Flush) 3 ml QSHIFT PRN IV AFTER MEDS AND BLOOD DRAWS; Start 12/30/19 at 12:15 Ondansetron HCl (Zofran) 4 mg PRN Q4HRS PRN IV NAUSEA/VOMITING; Start 12/30/19 at 12:15 Acetaminophen (Tylenol Supp) 650 mg PRN Q4HRS PRN MD TEMP OVER 100.4F OR MILD PAIN Last administered on 12/30/19at 20:17; Start 12/30/19 at 12:15 Sodium Monofluorophosphate (Fleet Adult) 133 ml PRN DAILY PRN MD CONSTIPATION; Start 12/30/19 at 12:15 Albuterol/ Ipratropium (Duoneb) 3 ml Q4HRS NEB ; Start 12/30/19 at 16:00; Stop 12/30/19 at 13:28; Status DC Pantoprazole Sodium (PROTONIX VIAL for IV PUSH) 40 mg DAILY IVP Last administered on 12/31/19at 08:30; Start 12/30/19 at 13:00 Prochlorperazine Edisylate (Compazine) 5 mg PRN Q6HRS PRN IVP NAUSEA/VOMITING 2ND CHOICE; Start 12/30/19 at 12:30 Info (Icu Electrolyte Protocol) 1 ea DAILY MC Last administered on 12/31/19at 06:40; Start 12/31/19 at 09:00 Sodium Chloride (Normal Saline Flush) 3 ml QSHIFT PRN IV AFTER MEDS AND BLOOD DRAWS; Start 12/30/19 at 12:30 Bisacodyl (Dulcolax Supp) 10 mg PRN DAILY PRN MD CONSTIPATION; Start 12/30/19 at 12:30 Albuterol Sulfate (Ventolin Neb Soln) 2.5 mg PRN Q4HRS PRN NEB SHORTNESS OF BREATH; Start 12/30/19 at 13:45 Piperacillin Sod/ Tazobactam Sod 3.375 gm/Sodium Chloride 50 ml @ 100 mls/hr Q6HRS IV Last administered on 12/31/19at 06:02; Start 12/30/19 at 16:00; Stop 12/31/19 at 09:00; Status DC Ringer's Solution 1,000 ml @ 100 mls/hr Q10H IV Last administered on 01/01/20at 02:19; Start 12/30/19 at 18:30 Insulin Human Lispro (HumaLOG) 0-7 UNITS Q6HRS SQ Last administered on 12/31/19at 12:00; Start 12/31/19 at 00:00 Fentanyl Citrate 30 ml @ 0 mls/hr CONT PRN IV SEE PROTOCOL Last administered on 12/31/19at 16:26; Start 12/31/19 at 04:00 Potassium Chloride/Water 100 ml @ 100 mls/hr Q1H IV Last administered on 12/31/19at 10:10; Start 12/31/19 at 07:00; Stop 12/31/19 at 10:59; Status DC Piperacillin Sod/ Tazobactam Sod 2.25 gm/Sodium Chloride 50 ml @ 100 mls/hr Q6HRS IV Last administered on 01/01/20at 06:01; Start 12/31/19 at 12:00 Norepinephrine Bitartrate 8 mg/ Dextrose 258 ml @ 12.752 mls/ hr CONT PRN IV PER PROTOCOL; Start 12/31/19 at 10:15 Enoxaparin Sodium (Lovenox 30mg Syringe) 30 mg Q24H SQ ; Start 01/01/20 at 09:00 Magnesium Sulfate 50 ml @ 25 mls/hr 1X ONCE IV Last administered on 12/31/19at 16:22; Start 12/31/19 at 16:00; Stop 12/31/19 at 17:59; Status DC Levetiracetam 750 mg/Dextrose 107.5 ml @ 440 mls/hr 1X ONCE IV Last administered on 12/31/19at 22:35; Start 12/31/19 at 22:00; Stop 12/31/19 at 22:14; Status DC Levetiracetam (Keppra) 750 mg BID PO ; Start 01/01/20 at 09:00 Vancomycin HCl (Vancomycin Trough Level) 1 each 1X ONCE MC ; Start 01/01/20 at 15:00; Stop 01/01/20 at 15:01 Active Scripts Active Reported Senna (Sennosides) 8.6 Mg Tablet 8.6 Mg PO BID Miralax (Polyethylene Glycol 3350) 17 Gm Powd.pack 1 Packet PO DAILY Milk Of Magnesia (Magnesium Hydroxide) 400 Mg/5 Ml Oral.susp 400 Mg PO DAILY Melatonin 3 Mg Tablet 1 Tab PO QHS Acetaminophen 325 Mg Tablet 650 Mg PO PRN Q4HRS PRN Keppra (Levetiracetam) 500 Mg Tablet 750 Mg PO BID Amlodipine Besylate 10 Mg Tablet 10 Mg PO DAILY Vitals/I & O Vital Sign - Last 24 Hours 12/31/19 12/31/19 12/31/19 12/31/19 07:35 08:00 08:00 09:00 Temp 100.6 100.6 Pulse 86 80 Resp 18 18 B/P (MAP) 99/69 (79) 95/67 (76) Pulse Ox 100 100 100 O2 Delivery Ventilator Mechanical Ventilator Ventilator Ventilator 12/31/19 12/31/19 12/31/19 12/31/19 10:00 11:15 11:35 11:45 Pulse 78 110 Resp 18 18 B/P (MAP) 90/63 (72) 75/60 (65) Pulse Ox 100 100 100 O2 Delivery Ventilator Mechanical Ventilator Ventilator 12/31/19 12/31/19 12/31/19 12/31/19 12:00 12:15 12:30 12:45 Pulse 110 110 110 110 Resp 18 18 18 18 B/P (MAP) 78/56 (63) 97/62 (74) 123/91 (102) 127/85 (99) Pulse Ox 100 99 100 100 O2 Delivery Ventilator Ventilator Ventilator Ventilator 12/31/19 12/31/19 12/31/19 12/31/19 13:00 13:30 14:00 15:00 Temp 98.7 98.7 Pulse 110 110 108 102 Resp 18 18 18 18 B/P (MAP) 123/80 (94) 131/88 (102) 111/89 (96) 121/81 (94) Pulse Ox 100 100 100 100 O2 Delivery Ventilator Ventilator Ventilator Ventilator 12/31/19 12/31/19 12/31/19 12/31/19 15:30 16:00 16:00 16:26 Temp 97.9 97.9 Pulse 106 Resp 18 22 B/P (MAP) 119/81 (94) Pulse Ox 100 100 100 O2 Delivery Ventilator Mechanical Ventilator 12/31/19 12/31/19 12/31/19 12/31/19 16:56 17:12 18:00 18:20 Pulse 96 92 Resp 24 18 18 B/P (MAP) 118/69 (85) 112/78 (89) Pulse Ox 100 100 100 100 O2 Delivery Ventilator Ventilator Ventilator Ventilator 12/31/19 12/31/19 12/31/19 12/31/19 19:00 19:30 19:45 20:00 Pulse 97 94 94 Resp 24 28 24 B/P (MAP) 117/76 (90) 90/68 (75) 126/84 (98) Pulse Ox 99 94 94 O2 Delivery Ventilator Ventilator Ventilator Mechanical Ventilator 12/31/19 12/31/19 12/31/19 12/31/19 20:00 20:46 21:00 22:00 Temp 100.6 100.6 Pulse 104 87 92 Resp 22 22 20 B/P (MAP) 99/62 (74) 92/59 (70) 118/80 (93) Pulse Ox 95 100 94 99 O2 Delivery Ventilator Ventilator Ventilator Ventilator 4/13/20 4/13/20 4/13/20 4/14/20 23:00 23:59 23:59 00:47 Temp 99.7 99.7 Pulse 96 94 Resp 20 22 B/P (MAP) 111/78 (89) 117/72 (87) Pulse Ox 100 100 100 O2 Delivery Ventilator Mechanical Ventilator Ventilator Ventilator 01/01/20 01/01/20 01/01/20 01/01/20 01:00 02:00 03:00 03:15 Pulse 94 87 86 86 Resp 20 B/P (MAP) 112/79 (90) 119/86 (97) 135/98 (110) 130/95 (107) Pulse Ox 98 99 100 100 O2 Delivery Ventilator Ventilator Ventilator Ventilator 01/01/20 01/01/20 01/01/20 01/01/20 03:30 03:45 04:00 04:15 Pulse 86 86 86 80 Resp 18 18 B/P (MAP) 140/90 (107) 140/99 (113) 133/86 (102) 103/68 (80) Pulse Ox 100 100 100 100 O2 Delivery Ventilator Ventilator Ventilator Ventilator 01/01/20 01/01/20 01/01/20 01/01/20 04:30 05:00 06:00 07:00 Temp 98.9 98.9 Pulse 90 104 96 Resp B/P (MAP) 99/70 (80) 104/71 (82) 137/89 (105) Pulse Ox 100 100 94 O2 Delivery Mechanical Ventilator Ventilator Ventilator Ventilator Intake and Output 12/31/19 12/31/19 01/01/20 15:00 23:00 07:00 Intake Total 50 ml 1269.5 ml 1696 ml Output Total 55 ml 125 ml 180 ml Balance -5 ml 1144.5 ml 1516 ml Nutrition Consultation Dietary Evaluation: Recommendations by RD: Dietary education by RD, Increase Calorie Intake Comments: REC TFs per following: VitalAF@20 ml/hr, increase 10ml q8 hrs as tolerated to goal rate 45 ml/hr w/125 ml water flushes q4 hrs or flushes per MD If pt placed in prone position, recommend TFs@20 ml/hr w/50 ml water flushes q6 hrs or per MD and ensure head of bed elevated at least 15 degrees to minimize aspiration risk, discussed w/RN Expected Outcomes/Goals: Initiation of TFs within 24 - 48 hrs of intubation Malnutrition Findings: Weight Status: Appropriate GRISEL TEJEDA MD Jan 01, 2020 07:33
[2020-01-01] MEDS: PANTOPRAZOLE IV PUSH 40 MG VIAL. IVP SCH (08:05)
[2020-01-01] MEDS: ELECTROLYTE (ICU) PROTOCOL. MC SCH (08:05)
[2020-01-01 08:44] LABS: BASE EXCESS ABG -3 mmol/L (-3-3); HCO3 ABG 23 mmol/L (21-28); PCO2 ABG 44 mmHg (35-46); PO2 ABG 75 mmHg (65-108); SAT O2 ABG 94 % (92-99)
[2020-01-01 08:54] LABS: FIO2 ABG 100
[2020-01-01] MEDS ORDERED: levETIRAcetam 250 MG TABLET PO SCH (09:00)
[2020-01-01] MEDS ORDERED: ENOXAPARIN 30 MG/0.3 ML SYRINGE. SQ SCH (09:00)
--- NOTE | 2020-01-01 11:23 | PDOC ---
[facility] [employer] 01/01/20 1123: CARDIO Progress Notes Date and Time Date of Service 01/01/2020 Time of Evaluation 0930 Subjective Subjective: Other (intubated) Vitals Vitals Vital Signs Date Time Temp Pulse Resp B/P (MAP) Pulse Ox O2 Delivery O2 Flow Rate FiO2 01/01/20 09:00 88 24 105/74 (84) 100 Ventilator 01/01/20 08:00 97.0 97.0 Weight Weight [ ] Input and Output Intake and Output Intake and Output 01/01/20 07:00 Intake Total 3015.5 ml Output Total 360 ml Balance 2655.5 ml Intake Oral 0 ml IV Total 2890.5 ml Tube Feeding 125 ml Output Urine Total 310 ml Gastric Drainage Total 50 ml # Bowel Movements 4 Laboratory Labs Laboratory Tests Test 12/31/19 12:27 12/31/19 16:31 12/31/19 20:35 01/01/20 00:06 Glucose (Fingerstick) 185 mg/dL (70-99) 162 mg/dL (70-99) 140 mg/dL (70-99) O2 Saturation 90 % (92-99) Arterial Blood pH 7.36 (7.35-7.45) Arterial Blood pCO2 at Patient Temp 45 mmHg (35-46) Arterial Blood pO2 at Patient Temp 58 mmHg (65-108) Arterial Blood HCO3 25 mmol/L (21-28) Arterial Blood Base Excess -1 mmol/L (-3-3) FiO2 90 Test 01/01/20 02:15 01/01/20 07:50 Sodium Level 149 mmol/L (136-145) Potassium Level 4.0 mmol/L (3.5-5.1) Chloride Level 113 mmol/L (98-107) Carbon Dioxide Level 24 mmol/L (21-32) Anion Gap 12 (6-14) Blood Urea Nitrogen 37 mg/dL (7-20) Creatinine 3.5 mg/dL (0.6-1.0) Estimated GFR (Cockcroft-Gault) 15.0 Glucose Level 168 mg/dL (70-99) Calcium Level 7.9 mg/dL (8.5-10.1) Magnesium Level 2.1 mg/dL (1.8-2.4) Vancomycin Level Trough 25.2 mcg/mL (10.0-20.0) Vancomycin Last Dose Date Unk Vancomycin Last Dose Time Unk O2 Saturation 94 % (92-99) Arterial Blood pH 7.33 (7.35-7.45) Arterial Blood pCO2 at Patient Temp 44 mmHg (35-46) Arterial Blood pO2 at Patient Temp 75 mmHg (65-108) Arterial Blood HCO3 23 mmol/L (21-28) Arterial Blood Base Excess -3 mmol/L (-3-3) FiO2 100 Microbiology Micro Microbiology 12/30/19 Blood Culture - Final, Complete Physical Exam Other Exams Limited: covid+, intubated with vent. Presently anuric. Cr worsening. Discussed with RN. BP stable with low dose levophed. brief episodes of of PSVT otherwise maintaining SR. Assessment Assessment 1. Acute respiratory failure secondary to ARDS, PNA, +Covid. Intubated/vent per pulmonary 2. Sepsis 3. Severe KRZYSZTOF: per PCP. Cr worse at 3.5, oliguric despite fluids 4. Mild troponin elevated; peak 0.1, suspect type 2 demand mediated with above culprits 5. Hx of HTN, DM2, HLP 6. Hx of CVA/seizures/SDH/[employer] shunt with Alzheimers dementia 7. Prolonged QTc: 496 Recommendations 1. Worsening renal function, poor prognosis. Remains full code. Will need to discuss with family regarding goals of care. 2. Titrate levophed per MAP adequacy 3. Supportive care at this time, caution with QT prolonging agents. Rhythm stable. KRYSTIAN MEJIA MD 01/01/201917: CARDIO Progress Notes Assessment Assessment Agree with DAIRY HELPER's assessment and plan. Slight trop elevation prob demand ischemia. Tele did not show any significant arrhythmias. Continue management of ARF/Covid19 per pulm team. Guarded prognosis. W[employer] Jan 01, 2020 11:23 KRYSTIAN MEJIA MD Jan 01, 2020 19:18
--- NOTE | 2020-01-01 12:00 | PDOC ---
PULMONARY PROGRESS NOTES Subjective remains intubated/sedated on 100%FIO2/high PEEP worsening renal function/ making urine Vitals Vital Signs Date Time Temp Pulse Resp B/P (MAP) Pulse Ox O2 Delivery O2 Flow Rate FiO2 01/01/20 09:00 88 24 105/74 (84) 100 Ventilator 01/01/20 08:00 97.0 97.0 Lungs: Crackles Cardiovascular: S1 Extremities: Other (trace edema) Labs Laboratory Tests Test 12/30/19 12:14 12/30/19 12:15 12/30/19 15:30 12/30/19 17:55 Glucose (Fingerstick) 224 mg/dL (70-99) Heparin Anti-Xa Act, Unfractionated 0.62 IU/mL (0.30-0.70) > 1.10 IU/mL (0.30-0.70) Nasal Screen MRSA (PCR) Negative (Negative) Test 12/30/19 18:02 12/30/19 23:31 12/31/19 01:45 12/31/19 05:40 Glucose (Fingerstick) 171 mg/dL (70-99) 114 mg/dL (70-99) Heparin Anti-Xa Act, Unfractionated 0.22 IU/mL (0.30-0.70) White Blood Count 10.2 x10^3/uL (4.0-11.0) Red Blood Count 4.05 x10^6/uL (3.50-5.40) Hemoglobin 11.9 g/dL (12.0-15.5) Hematocrit 36.9 % (36.0-47.0) Mean Corpuscular Volume 91 fL (79-100) Mean Corpuscular Hemoglobin 29 pg (25-35) Mean Corpuscular Hemoglobin Concent 32 g/dL (31-37) Red Cell Distribution Width 14.6 % (11.5-14.5) Platelet Count 163 x10^3/uL (140-400) Neutrophils (%) (Auto) 83 % (31-73) Lymphocytes (%) (Auto) 14 % (24-48) Monocytes (%) (Auto) 3 % (0-9) Eosinophils (%) (Auto) 0 % (0-3) Basophils (%) (Auto) 0 % (0-3) Neutrophils # (Auto) 8.5 x10^3/uL (1.8-7.7) Lymphocytes # (Auto) 1.4 x10^3/uL (1.0-4.8) Monocytes # (Auto) 0.3 x10^3/uL (0.0-1.1) Eosinophils # (Auto) 0.0 x10^3/uL (0.0-0.7) Basophils # (Auto) 0.0 x10^3/uL (0.0-0.2) Sodium Level 151 mmol/L (136-145) Potassium Level 2.9 mmol/L (3.5-5.1) Chloride Level 113 mmol/L (98-107) Carbon Dioxide Level 26 mmol/L (21-32) Anion Gap 12 (6-14) Blood Urea Nitrogen 26 mg/dL (7-20) Creatinine 2.7 mg/dL (0.6-1.0) Estimated GFR (Cockcroft-Gault) 20.2 BUN/Creatinine Ratio 10 (6-20) Glucose Level 214 mg/dL (70-99) Calcium Level 7.8 mg/dL (8.5-10.1) Magnesium Level 1.4 mg/dL (1.8-2.4) Total Bilirubin 2.0 mg/dL (0.2-1.0) Aspartate Amino Transf (AST/SGOT) 72 U/L (15-37) Alanine Aminotransferase (ALT/SGPT) 26 U/L (14-59) Alkaline Phosphatase 86 U/L (46-116) Total Protein 6.1 g/dL (6.4-8.2) Albumin 1.6 g/dL (3.4-5.0) Albumin/Globulin Ratio 0.4 (1.0-1.7) Test 12/31/19 05:53 12/31/19 07:35 12/31/19 08:30 12/31/19 12:27 Glucose (Fingerstick) 195 mg/dL (70-99) 185 mg/dL (70-99) O2 Saturation 99 % (92-99) Arterial Blood pH 7.39 (7.35-7.45) Arterial Blood pCO2 at Patient Temp 42 mmHg (35-46) Arterial Blood pO2 at Patient Temp 163 mmHg (65-108) Arterial Blood HCO3 25 mmol/L (21-28) Arterial Blood Base Excess -1 mmol/L (-3-3) FiO2 100 Heparin Anti-Xa Act, Unfractionated 0.67 IU/mL (0.30-0.70) Test 12/31/19 16:31 12/31/19 20:35 01/01/20 00:06 01/01/20 02:15 Glucose (Fingerstick) 162 mg/dL (70-99) 140 mg/dL (70-99) O2 Saturation 90 % (92-99) Arterial Blood pH 7.36 (7.35-7.45) Arterial Blood pCO2 at Patient Temp 45 mmHg (35-46) Arterial Blood pO2 at Patient Temp 58 mmHg (65-108) Arterial Blood HCO3 25 mmol/L (21-28) Arterial Blood Base Excess -1 mmol/L (-3-3) FiO2 90 Sodium Level 149 mmol/L (136-145) Potassium Level 4.0 mmol/L (3.5-5.1) Chloride Level 113 mmol/L (98-107) Carbon Dioxide Level 24 mmol/L (21-32) Anion Gap 12 (6-14) Blood Urea Nitrogen 37 mg/dL (7-20) Creatinine 3.5 mg/dL (0.6-1.0) Estimated GFR (Cockcroft-Gault) 15.0 Glucose Level 168 mg/dL (70-99) Calcium Level 7.9 mg/dL (8.5-10.1) Magnesium Level 2.1 mg/dL (1.8-2.4) Creatine Kinase 376 U/L (26-192) Vancomycin Level Trough 25.2 mcg/mL (10.0-20.0) Vancomycin Last Dose Date Unk Vancomycin Last Dose Time Unk Test 01/01/20 07:50 O2 Saturation 94 % (92-99) Arterial Blood pH 7.33 (7.35-7.45) Arterial Blood pCO2 at Patient Temp 44 mmHg (35-46) Arterial Blood pO2 at Patient Temp 75 mmHg (65-108) Arterial Blood HCO3 23 mmol/L (21-28) Arterial Blood Base Excess -3 mmol/L (-3-3) FiO2 100 Laboratory Tests Test 12/31/19 12:27 12/31/19 16:31 12/31/19 20:35 01/01/20 00:06 Glucose (Fingerstick) 185 mg/dL (70-99) 162 mg/dL (70-99) 140 mg/dL (70-99) O2 Saturation 90 % (92-99) Arterial Blood pH 7.36 (7.35-7.45) Arterial Blood pCO2 at Patient Temp 45 mmHg (35-46) Arterial Blood pO2 at Patient Temp 58 mmHg (65-108) Arterial Blood HCO3 25 mmol/L (21-28) Arterial Blood Base Excess -1 mmol/L (-3-3) FiO2 90 Test 01/01/20 02:15 01/01/20 07:50 Sodium Level 149 mmol/L (136-145) Potassium Level 4.0 mmol/L (3.5-5.1) Chloride Level 113 mmol/L (98-107) Carbon Dioxide Level 24 mmol/L (21-32) Anion Gap 12 (6-14) Blood Urea Nitrogen 37 mg/dL (7-20) Creatinine 3.5 mg/dL (0.6-1.0) Estimated GFR (Cockcroft-Gault) 15.0 Glucose Level 168 mg/dL (70-99) Calcium Level 7.9 mg/dL (8.5-10.1) Magnesium Level 2.1 mg/dL (1.8-2.4) Creatine Kinase 376 U/L (26-192) Vancomycin Level Trough 25.2 mcg/mL (10.0-20.0) Vancomycin Last Dose Date Unk Vancomycin Last Dose Time Unk O2 Saturation 94 % (92-99) Arterial Blood pH 7.33 (7.35-7.45) Arterial Blood pCO2 at Patient Temp 44 mmHg (35-46) Arterial Blood pO2 at Patient Temp 75 mmHg (65-108) Arterial Blood HCO3 23 mmol/L (21-28) Arterial Blood Base Excess -3 mmol/L (-3-3) FiO2 100 Medications Active Scripts Medications Dose Route/Sig Max Daily Dose Days Date Category Senna (Sennosides) 8.6 Mg Tablet 8.6 Mg PO BID 02/11/19 Reported Miralax (Polyethylene Glycol 3350) 17 Gm Powd.pack 1 Packet PO DAILY 02/11/19 Reported Milk Of Magnesia (Magnesium Hydroxide) 400 Mg/5 Ml Oral.susp 400 Mg PO DAILY 02/11/19 Reported Melatonin 3 Mg Tablet 1 Tab PO QHS 02/11/19 Reported Acetaminophen 325 Mg Tablet 650 Mg PO PRN Q4HRS PRN 12/03/13 Reported Keppra (Levetiracetam) 500 Mg Tablet 750 Mg PO BID 12/03/13 Reported Amlodipine Besylate 10 Mg Tablet 10 Mg PO DAILY 12/03/13 Reported Impression . IMPRESSION: 1. Acute respiratory failure secondary to COVID-19./ ARDS 2. COVID-19.Pneumonia 3. Bilateral pulmonary infiltrates due to pneumonia. 4. Cerebrovascular accident. 5. Dementia. 6. Type of seizure. 7. History of ventriculoperitoneal shunt. 8. Hypernatremia. 9. Hypokalemia. 10. Fever. 11. Worsening renal failure 12. Severe PCM Plan . DISCUSSION: As indicated above, [facility] number of COVID positive patients. She presents during the global COVID-19 pandemic. Diagnosis of COVID-19 was suspected of upfront. The patient is currently being treated with current guidelines. We will continue support with assist control ventilation. BS abx. On vanc/ Zosyn off heparin drip per Cardiology. TF follow renal rec / Not the best candidate for HD Prognosis poor . will call family for code status d/w RN Total cumulative critical care time of 30 minutes, reviewing data, labs, chest x-ray and formulating a plan. Overall, suspect the patient will not survive. We will continue our efforts and discuss further advanced directive with the patient's family. COVID-19 CRITERIA: The patient was evaluated during the global COVID-19 pandemic, and that diagnosis was suspected/considered upon their initial presentation. Their evaluation, treatment and testing was consistent with current guidelines for patients who present with complaints or symptoms that may be related to COVID-19. KATH ROMAN MD Jan 01, 2020 12:00
[2020-01-01 15:13] LABS: VANC TR 21.2 mcg/mL (10.0-20.0)
--- NOTE | 2020-01-01 15:39 | NUR ---
SS following up with discharge planning. SS reviewed pt chart and discussed with RN, Miya. Pt is LTC resident from [place]. Pt is currently on the vent and is COVID19 positive. SS will continue to follow for discharge planning.
--- NOTE | 2020-01-01 15:44 | NUR ---
Pharmacy Vancomycin Dosing Note S:Consulted to monitor and dose vancomycin started 12/30/19. O:ALAN LEE is a 84 year old F + for COVID with concerns for bacteremia and HCAP. Height: 5 feet, 4 inches Weight: 68.4 kg [place] Body Weight: 54.70 Adjusted Body Weight: 60.18 Dosing Weight: Actual Other Antibiotics: LEVOFLOXACIN X1 ED ZOSYN 2.25 Q6H STARTED BY PULMONARY LABS: Last BUN: 37 Last Creatinine: 3.5 Creatinine Clearance: about 10 mL/min Last WBC: 10.2 Last Procalcitonin: NA Tmax (past 24 hours): 98.9 in last 24 hours Microbiology: 12/29 BC has 1 of 4 bottles positive for gram positive cocci in pairs other set of BC NGTD x 2 days. Urine culture + for E. coli I/O: 3015.5/360 Drug Levels: Last Trough level: 21.2 on 01/01/20 at 1448 Last dose given 12/31/19 at 0316 Vancomycin Dosing: Loading Dose: 1750 mg x1 Dosing Weight: Actual Target Trough: 15-20 A: Based on: Patient's renal function, clinical progress and vancomycin levels P: 1. No vancomycin maintenance doses ordered at this time will continue to dose Per Levels 2. Follow up Random level on 01/02/20 at 0500 3. Pharmacy will continue to monitor, follow and adjust therapy as needed. NEELA JONES [facility], 01/01/20 [id number]
[2020-01-02] VITALS (11 sets, daily range): BP systolic 78–137; BP diastolic 36–89
--- NOTE | 2020-01-02 | NUR ---
Code Status Change. Spoke with Hanna Kumar, patient's daughter who verbalized she did not want patient chest compressions and wanted her to be a Do Not Resuscitate. Confirmed with GUCCI Lu over telephone to verify code status. Hanna further stated she would like to talk to doctor in the morning.
[2020-01-02] MEDS: MIDAZOLAM 100mg/100ml NS BAG 100 ML IV PRN ×2 (00:24→12:27)
[2020-01-02] MEDS: PIPERACILLIN/TAZOBACTAM 2.25 GM in IV NORMAL SALINE 50ML 50 ML IV SCH ×2 (00:24→06:13)
[2020-01-02] MEDS ORDERED: VANCOMYCIN RANDOM LEVEL. MC ONE (05:00)
[2020-01-02] MEDS ORDERED: HEPARIN for SUB-Q USE 5,000 UNIT/ML VIAL. SQ SCH (06:00)
[2020-01-02] MEDS: INSULIN LISPRO 300 UNITS/3 ML VIAL. SQ SCH ×2 (06:00)
[2020-01-02 06:46] LABS: CALCIUM 7.7 mg/dL (8.5-10.1); CREATININE 4.5 mg/dL (0.6-1.0); GFR 11.2; POTASSIUM 4.4 mmol/L (3.5-5.1)
[2020-01-02 06:52] LABS: HEMATOCRIT 33.8 % (36.0-47.0); HEMOGLOBIN 10.8 g/dL (12.0-15.5); RED BLOOD COUNT 3.69 x10^6/uL (3.50-5.40); WHITE BLOOD COUNT 15.6 x10^3/uL (4.0-11.0)
--- NOTE | 2020-01-02 07:21 | PDOC ---
PROGRESS NOTES Chief Complaint Chief Complaint A/P: Acute hypoxic respiratory failure Severe sepsis Elevated troponin Hypernatremia Hypokalemia H/o subdural hematoma - prior ever holes noted. recent left frontal convexity subdural hematoma 5 mm-->7mm. History of Alzheimer's - not on meds due to long-standing disease History of epilepsy, on levetiracetam - will continue 750mg BID. 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 She presents during the global COVID-19 pandemic. Diagnosis of COVID-19 was suspected of upfront. The patient is currently being treated with current guidelines. We will continue support with assist control ventilation. We will start hydroxychloroquine. Hold off on Zithromax for possible complications of QT interval prolongation. History of Present Illness History of Present Illness Ms Kumar is an 84yo F halfway SNF resident w/ PMHx Constipation, CVA, Alzheimer Dementia, Diabetes-Type 2, Seizures, s/p ventriculoperitoneal shunt placement who presents with complaints of respiratory distress. Patient is a resident of [place], roommate is positive for COVID, patient has been tested twice of which is been negative however she presented with fever 102 rectally, tachypnea with respiratory rate in the 40s, saturations on 15 L of 88 to 90%. ED physician discussed resuscitation efforts with the daughter and with O2 saturations high 80's to 90's on 15 L NRB and Xray with evidence of bilateral consolidation she would like to proceed with full resuscitative efforts and patient was emergently intubated in ED and admitted to ICU. Na 153, potassium 2.7, chloride 113 - D5w with 20k at 75ml/hr, BS 422 - 10 units sq of insulin, Abx (vancomycin, Levaquin), Heparin gtt initiated given elevated troponin, likely 2/2 resp distress and demand ischemia [11/06/2019 admitted for fall with CT head revealing a new SDH, acute left frontal convexity subdural hematoma measuring 5 mm in thickness. Minimal mass effect.] Consults: Pulmonology, Cardiology 12/30: Tmax 101.5F. Intubated, sedated on vent FiO2 100%, PEEP 8 w/ ABG w/ PO2 of 136. CXR unchanged. K 2.9 this morning. Na 151. Blood Culture with GPC 1/4 positive. SARS-CoV-2 (COVID 19) Positive PCR test. 12/31: Overnight proned with significant O2 desaturations, was placed back on increased sedation and FIO2 100% again. Very sedated. Cr 4.5, BUN 49, WBC 15.6, Hb 10.2. PEEP 8, FiO2 100%. Anuric. Discussed with Hanna her mother is DNR/DNI and she wishes to discuss with family at 1130 today. Plan: Free water 150cc q4hrs to correct free water deficit. Vital AF TF ok. Stopped heparin GTT Vitals Vitals Vital Signs Date Time Temp Pulse Resp B/P (MAP) Pulse Ox O2 Delivery O2 Flow Rate FiO2 01/02/20 06:00 112 21 78/51 (60) 94 Ventilator 22.0 01/02/20 04:00 100.3 100.3 Physical Exam General: Other (sedated ) Heart: Regular rate, Normal S1 Lungs: Crackles Abdomen: Soft Extremities: No edema Skin: No significant lesion Labs LABS Laboratory Tests Test 01/01/20 07:50 01/01/20 11:53 01/01/20 14:48 01/02/20 00:21 O2 Saturation 94 % (92-99) Arterial Blood pH 7.33 (7.35-7.45) Arterial Blood pCO2 at Patient Temp 44 mmHg (35-46) Arterial Blood pO2 at Patient Temp 75 mmHg (65-108) Arterial Blood HCO3 23 mmol/L (21-28) Arterial Blood Base Excess -3 mmol/L (-3-3) FiO2 100 Glucose (Fingerstick) 185 mg/dL (70-99) 101 mg/dL (70-99) Vancomycin Level Trough 21.2 mcg/mL (10.0-20.0) Vancomycin Last Dose Date Unk Vancomycin Last Dose Time Unk Test 01/02/20 06:00 01/02/20 06:11 White Blood Count 15.6 x10^3/uL (4.0-11.0) Red Blood Count 3.69 x10^6/uL (3.50-5.40) Hemoglobin 10.8 g/dL (12.0-15.5) Hematocrit 33.8 % (36.0-47.0) Mean Corpuscular Volume 92 fL (79-100) Mean Corpuscular Hemoglobin 29 pg (25-35) Mean Corpuscular Hemoglobin Concent 32 g/dL (31-37) Red Cell Distribution Width 15.0 % (11.5-14.5) Platelet Count 197 x10^3/uL (140-400) Sodium Level 146 mmol/L (136-145) Potassium Level 4.4 mmol/L (3.5-5.1) Chloride Level 111 mmol/L (98-107) Carbon Dioxide Level 22 mmol/L (21-32) Anion Gap 13 (6-14) Blood Urea Nitrogen 49 mg/dL (7-20) Creatinine 4.5 mg/dL (0.6-1.0) Estimated GFR (Cockcroft-Gault) 11.2 Glucose Level 203 mg/dL (70-99) Calcium Level 7.7 mg/dL (8.5-10.1) Random Vancomycin Level 22.1 mcg/mL Glucose (Fingerstick) 176 mg/dL (70-99) Assessment and Plan Assessmemt and Plan Problems Medical Problems: (1) Acute respiratory failure Status: Acute (2) Elevated troponin Status: Acute Comment Review of Relevant I have reviewed the following items beau (where applicable) has been applied. Labs Laboratory Tests Test 12/31/19 07:35 12/31/19 08:30 12/31/19 12:27 12/31/19 16:31 O2 Saturation 99 % (92-99) Arterial Blood pH 7.39 (7.35-7.45) Arterial Blood pCO2 at Patient Temp 42 mmHg (35-46) Arterial Blood pO2 at Patient Temp 163 mmHg (65-108) Arterial Blood HCO3 25 mmol/L (21-28) Arterial Blood Base Excess -1 mmol/L (-3-3) FiO2 100 Heparin Anti-Xa Act, Unfractionated 0.67 IU/mL (0.30-0.70) Glucose (Fingerstick) 185 mg/dL (70-99) 162 mg/dL (70-99) Test 12/31/19 20:35 01/01/20 00:06 01/01/20 02:15 01/01/20 07:50 O2 Saturation 90 % (92-99) 94 % (92-99) Arterial Blood pH 7.36 (7.35-7.45) 7.33 (7.35-7.45) Arterial Blood pCO2 at Patient Temp 45 mmHg (35-46) 44 mmHg (35-46) Arterial Blood pO2 at Patient Temp 58 mmHg (65-108) 75 mmHg (65-108) Arterial Blood HCO3 25 mmol/L (21-28) 23 mmol/L (21-28) Arterial Blood Base Excess -1 mmol/L (-3-3) -3 mmol/L (-3-3) FiO2 90 100 Glucose (Fingerstick) 140 mg/dL (70-99) Sodium Level 149 mmol/L (136-145) Potassium Level 4.0 mmol/L (3.5-5.1) Chloride Level 113 mmol/L (98-107) Carbon Dioxide Level 24 mmol/L (21-32) Anion Gap 12 (6-14) Blood Urea Nitrogen 37 mg/dL (7-20) Creatinine 3.5 mg/dL (0.6-1.0) Estimated GFR (Cockcroft-Gault) 15.0 Glucose Level 168 mg/dL (70-99) Calcium Level 7.9 mg/dL (8.5-10.1) Magnesium Level 2.1 mg/dL (1.8-2.4) Creatine Kinase 376 U/L (26-192) Vancomycin Level Trough 25.2 mcg/mL (10.0-20.0) Vancomycin Last Dose Date Unk Vancomycin Last Dose Time Unk Test 01/01/20 11:53 01/01/20 14:48 01/02/20 00:21 01/02/20 06:00 Glucose (Fingerstick) 185 mg/dL (70-99) 101 mg/dL (70-99) Vancomycin Level Trough 21.2 mcg/mL (10.0-20.0) Vancomycin Last Dose Date Unk Vancomycin Last Dose Time Unk White Blood Count 15.6 x10^3/uL (4.0-11.0) Red Blood Count 3.69 x10^6/uL (3.50-5.40) Hemoglobin 10.8 g/dL (12.0-15.5) Hematocrit 33.8 % (36.0-47.0) Mean Corpuscular Volume 92 fL (79-100) Mean Corpuscular Hemoglobin 29 pg (25-35) Mean Corpuscular Hemoglobin Concent 32 g/dL (31-37) Red Cell Distribution Width 15.0 % (11.5-14.5) Platelet Count 197 x10^3/uL (140-400) Sodium Level 146 mmol/L (136-145) Potassium Level 4.4 mmol/L (3.5-5.1) Chloride Level 111 mmol/L (98-107) Carbon Dioxide Level 22 mmol/L (21-32) Anion Gap 13 (6-14) Blood Urea Nitrogen 49 mg/dL (7-20) Creatinine 4.5 mg/dL (0.6-1.0) Estimated GFR (Cockcroft-Gault) 11.2 Glucose Level 203 mg/dL (70-99) Calcium Level 7.7 mg/dL (8.5-10.1) Random Vancomycin Level 22.1 mcg/mL Test 01/02/20 06:11 Glucose (Fingerstick) 176 mg/dL (70-99) Laboratory Tests Test 01/01/20 07:50 01/01/20 11:53 01/01/20 14:48 01/02/20 00:21 O2 Saturation 94 % (92-99) Arterial Blood pH 7.33 (7.35-7.45) Arterial Blood pCO2 at Patient Temp 44 mmHg (35-46) Arterial Blood pO2 at Patient Temp 75 mmHg (65-108) Arterial Blood HCO3 23 mmol/L (21-28) Arterial Blood Base Excess -3 mmol/L (-3-3) FiO2 100 Glucose (Fingerstick) 185 mg/dL (70-99) 101 mg/dL (70-99) Vancomycin Level Trough 21.2 mcg/mL (10.0-20.0) Vancomycin Last Dose Date Unk Vancomycin Last Dose Time Unk Test 01/02/20 06:00 01/02/20 06:11 White Blood Count 15.6 x10^3/uL (4.0-11.0) Red Blood Count 3.69 x10^6/uL (3.50-5.40) Hemoglobin 10.8 g/dL (12.0-15.5) Hematocrit 33.8 % (36.0-47.0) Mean Corpuscular Volume 92 fL (79-100) Mean Corpuscular Hemoglobin 29 pg (25-35) Mean Corpuscular Hemoglobin Concent 32 g/dL (31-37) Red Cell Distribution Width 15.0 % (11.5-14.5) Platelet Count 197 x10^3/uL (140-400) Sodium Level 146 mmol/L (136-145) Potassium Level 4.4 mmol/L (3.5-5.1) Chloride Level 111 mmol/L (98-107) Carbon Dioxide Level 22 mmol/L (21-32) Anion Gap 13 (6-14) Blood Urea Nitrogen 49 mg/dL (7-20) Creatinine 4.5 mg/dL (0.6-1.0) Estimated GFR (Cockcroft-Gault) 11.2 Glucose Level 203 mg/dL (70-99) Calcium Level 7.7 mg/dL (8.5-10.1) Random Vancomycin Level 22.1 mcg/mL Glucose (Fingerstick) 176 mg/dL (70-99) Microbiology 12/30/19 Urine Culture - Final, Complete 12/30/19 Urine Culture Result 1 (MAJO) - Final, Complete 12/30/19 Blood Culture - Final, Complete Medications Current Medications Acetaminophen (Tylenol Supp) 650 mg 1X ONCE RI Last administered on 12/30/19at 01:40; Start 12/30/19 at 01:30; Stop 12/30/19 at 01:31; Status DC Vancomycin HCl (Vanco Per Pharmacy) 1 each PRN DAILY PRN MC SEE COMMENTS Last administered on 01/01/20at 15:44; Start 12/30/19 at 01:45 Levofloxacin/ Dextrose 150 ml @ 100 mls/hr 1X ONCE IV Last administered on 12/30/19at 01:58; Start 12/30/19 at 02:00; Stop 12/30/19 at 03:29; Status DC Potassium Chloride/Water 100 ml @ 50 mls/hr 1X ONCE IV ; Start 12/30/19 at 02:00; Stop 12/30/19 at 03:59; Status UNV Potassium Chloride/Water 100 ml @ 100 mls/hr Q1H IV Last administered on 12/30/19at 05:28; Start 12/30/19 at 02:00; Stop 12/30/19 at 03:59; Status DC Potassium Chloride/Dextrose 1,000 ml @ 75 mls/hr 1X ONCE IV Last administered on 12/30/19at 04:14; Start 12/30/19 at 02:30; Stop 12/30/19 at 15:49; Status DC Insulin Human Lispro (HumaLOG) 15 units 1X ONCE SQ Last administered on 12/30/19at 02:17; Start 12/30/19 at 02:30; Stop 12/30/19 at 02:31; Status DC Heparin Sodium (Porcine) (Heparin Sodium) 4,000 unit 1X ONCE IV Last administered on 12/30/19at 04:38; Start 12/30/19 at 02:30; Stop 12/30/19 at 02:31; Status DC Heparin Sodium/ Dextrose 250 ml @ 0 mls/hr CONT PRN IV PER PROTOCOL Last administered on 12/30/19at 05:46; Start 12/30/19 at 02:00; Stop 12/31/19 at 09:47; Status DC Heparin Sodium (Porcine) (Heparin Sodium) 2,050 unit PRN Q6HRS PRN IV FOR UFH LEVEL LESS THAN 0.2; Start 12/30/19 at 02:00; Stop 12/31/19 at 09:47; Status DC Info (Anti-Coagulation Monitoring By Pharmacy) 1 each PRN DAILY PRN MC SEE COMMENTS Last administered on 12/30/19at 04:37; Start 12/30/19 at 02:15; Stop 01/01/20 at 11:20; Status DC Vancomycin HCl 1.75 gm/Sodium Chloride 500 ml @ 250 mls/hr 1X ONCE IV Last administered on 12/30/19at 02:22; Start 12/30/19 at 03:00; Stop 12/30/19 at 04:59; Status DC Midazolam HCl 50 mg/Sodium Chloride 50 ml @ 0 mls/hr 1X ONCE IV ; Start 12/30/19 at 03:30; Stop 12/30/19 at 03:31; Status UNV Midazolam HCl 100 mg/Sodium Chloride 100 ml @ 0 mls/hr 1X ONCE IV Last administered on 12/30/19at 03:48; Start 12/30/19 at 04:00; Stop 12/30/19 at 04:01; Status DC Ondansetron HCl (Zofran) 4 mg PRN Q8HRS PRN IV NAUSEA/VOMITING; Start 12/30/19 at 04:15; Stop 12/31/19 at 04:14; Status DC Insulin Human Lispro (HumaLOG) 0-7 UNITS TIDWMEALS SQ ; Start 12/30/19 at 08:00; Stop 12/30/19 at 19:38; Status DC Dextrose (Dextrose 50%-Water Syringe) 12.5 gm PRN Q15MIN PRN IV SEE COMMENTS; Start 12/30/19 at 04:15 Fentanyl Citrate (Fentanyl 2ml Vial) 25 mcg PRN Q1HR PRN IV SEE COMMENTS; Start 12/30/19 at 04:15 Fentanyl Citrate (Fentanyl 2ml Vial) 50 mcg PRN Q1HR PRN IV SEE COMMENTS Last administered on 12/31/19at 02:05; Start 12/30/19 at 04:15 Chlorhexidine Gluconate (Peridex) 15 ml BID MM Last administered on 12/30/19at 21:25; Start 12/30/19 at 09:00; Stop 12/31/19 at 10:08; Status DC Midazolam HCl 100 ml @ 0 mls/hr CONT PRN IV SEE PROTOCOL Last administered on 01/02/20at 00:24; Start 12/30/19 at 04:15 Vancomycin HCl 1 gm/Sodium Chloride 250 ml @ 250 mls/hr Q24H IV Last administered on 12/31/19at 03:16; Start 12/31/19 at 03:00; Stop 01/01/20 at 02:57; Status DC Vancomycin HCl (Vancomycin Trough Level) 1 each 1X ONCE MC Last administered on 01/01/20at 02:15; Start 01/01/20 at 02:30; Stop 01/01/20 at 02:31; Status DC Norepinephrine Bitartrate 8 mg/ Dextrose 258 ml @ 13.197 mls/ hr 1X ONCE IV ; Start 12/30/19 at 05:00; Stop 12/31/19 at 00:32; Status DC Rocuronium [place] (Zemuron) 50 mg STK-MED ONCE .ROUTE ; Start 12/30/19 at 05:27; Stop 12/30/19 at 05:28; Status DC Etomidate (Amidate) 20 mg STK-MED ONCE IV ; Start 12/30/19 at 05:27; Stop 12/30/19 at 05:28; Status DC Sodium Chloride (Normal Saline Flush) 3 ml QSHIFT PRN IV AFTER MEDS AND BLOOD DRAWS; Start 12/30/19 at 12:15 Ondansetron HCl (Zofran) 4 mg PRN Q4HRS PRN IV NAUSEA/VOMITING; Start 12/30/19 at 12:15 Acetaminophen (Tylenol Supp) 650 mg PRN Q4HRS PRN RI TEMP OVER 100.4F OR MILD PAIN Last administered on 12/30/19at 20:17; Start 12/30/19 at 12:15 Sodium Monofluorophosphate (Fleet Adult) 133 ml PRN DAILY PRN RI CONSTIPATION, 2nd choice; Start 12/30/19 at 12:15 Albuterol/ Ipratropium (Duoneb) 3 ml Q4HRS NEB ; Start 12/30/19 at 16:00; Stop 12/30/19 at 13:28; Status DC Pantoprazole Sodium (PROTONIX VIAL for IV PUSH) 40 mg DAILY IVP Last administered on 01/01/20at 08:05; Start 12/30/19 at 13:00 Prochlorperazine Edisylate (Compazine) 5 mg PRN Q6HRS PRN IVP NAUSEA/VOMITING 2ND CHOICE; Start 12/30/19 at 12:30 Info (Icu Electrolyte Protocol) 1 ea DAILY MC Last administered on 12/31/19at 06:40; Start 12/31/19 at 09:00 Sodium Chloride (Normal Saline Flush) 3 ml QSHIFT PRN IV AFTER MEDS AND BLOOD DRAWS; Start 12/30/19 at 12:30 Bisacodyl (Dulcolax Supp) 10 mg PRN DAILY PRN RI CONSTIPATION, 1st choice; Start 12/30/19 at 12:30 Albuterol Sulfate (Ventolin Neb Soln) 2.5 mg PRN Q4HRS PRN NEB SHORTNESS OF BREATH; Start 12/30/19 at 13:45 Piperacillin Sod/ Tazobactam Sod 3.375 gm/Sodium Chloride 50 ml @ 100 mls/hr Q6HRS IV Last administered on 12/31/19at 06:02; Start 12/30/19 at 16:00; Stop 12/31/19 at 09:00; Status DC Ringer's Solution 1,000 ml @ 100 mls/hr Q10H IV Last administered on 01/01/20at 21:25; Start 12/30/19 at 18:30 Insulin Human Lispro (HumaLOG) 0-7 UNITS Q6HRS SQ Last administered on 01/01/20at 11:59; Start 12/31/19 at 00:00 Fentanyl Citrate 30 ml @ 0 mls/hr CONT PRN IV SEE PROTOCOL Last administered on 01/01/20at 23:26; Start 12/31/19 at 04:00 Potassium Chloride/Water 100 ml @ 100 mls/hr Q1H IV Last administered on 12/31/19at 10:10; Start 12/31/19 at 07:00; Stop 12/31/19 at 10:59; Status DC Piperacillin Sod/ Tazobactam Sod 2.25 gm/Sodium Chloride 50 ml @ 100 mls/hr Q6HRS IV Last administered on 01/02/20at 06:13; Start 12/31/19 at 12:00 Norepinephrine Bitartrate 8 mg/ Dextrose 258 ml @ 12.752 mls/ hr CONT PRN IV PER PROTOCOL Last administered on 01/01/20at 17:33; Start 12/31/19 at 10:15 Enoxaparin Sodium (Lovenox 30mg Syringe) 30 mg Q24H SQ Last administered on 01/01/20at 08:20; Start 01/01/20 at 09:00; Stop 01/01/20 at 14:10; Status DC Magnesium Sulfate 50 ml @ 25 mls/hr 1X ONCE IV Last administered on 12/31/19at 16:22; Start 12/31/19 at 16:00; Stop 12/31/19 at 17:59; Status DC Levetiracetam 750 mg/Dextrose 107.5 ml @ 440 mls/hr 1X ONCE IV Last administered on 12/31/19at 22:35; Start 12/31/19 at 22:00; Stop 12/31/19 at 22:14; Status DC Levetiracetam (Keppra) 750 mg BID PO Last administered on 01/01/20at 08:20; Start 01/01/20 at 09:00; Stop 01/01/20 at 08:27; Status DC Vancomycin HCl (Vancomycin Trough Level) 1 each 1X ONCE MC Last administered on 01/01/20at 15:00; Start 01/01/20 at 15:00; Stop 01/01/20 at 15:01; Status DC Levetiracetam (Keppra) 750 mg BID PEG Last administered on 01/01/20at 21:25; Start 01/01/20 at 09:00 Midazolam HCl (Versed Premix) 100 mg STK-MED ONCE IV ; Start 12/31/19 at 09:39; Stop 01/01/20 at 11:30; Status DC Midazolam HCl (Versed Premix) 100 mg STK-MED ONCE IV ; Start 12/30/19 at 03:34; Stop 01/01/20 at 12:05; Status DC Heparin Sodium (Porcine) (Heparin Sodium) 5,000 unit Q8HRS SQ Last administered on 01/02/20at 06:42; Start 01/02/20 at 06:00 Vancomycin HCl (Vancomycin Random Level) 1 each 1X ONCE MC Last administered o n 01/02/20at 05:00; Start 01/02/20 at 05:00; Stop 01/02/20 at 05:02; Status DC Active Scripts Active Reported Senna (Sennosides) 8.6 Mg Tablet 8.6 Mg PO BID Miralax (Polyethylene Glycol 3350) 17 Gm Powd.pack 1 Packet PO DAILY Milk Of Magnesia (Magnesium Hydroxide) 400 Mg/5 Ml Oral.susp 400 Mg PO DAILY Melatonin 3 Mg Tablet 1 Tab PO QHS Acetaminophen 325 Mg Tablet 650 Mg PO PRN Q4HRS PRN Keppra (Levetiracetam) 500 Mg Tablet 750 Mg PO BID Amlodipine Besylate 10 Mg Tablet 10 Mg PO DAILY Vitals/I & O Vital Sign - Last 24 Hours 01/01/20 01/01/20 01/01/20 01/01/20 07:50 08:00 08:00 09:00 Temp 97.0 97.0 Pulse 90 88 Resp 24 24 B/P (MAP) 107/69 (82) 105/74 (84) Pulse Ox 100 100 100 O2 Delivery Ventilator Mechanical Ventilator Ventilator Ventilator 01/01/20 01/01/20 01/01/20 01/01/20 10:00 10:30 10:45 11:00 Pulse 88 88 88 98 Resp 24 24 24 24 B/P (MAP) 108/58 (75) 93/65 (74) 87/66 (73) 82/66 (71) Pulse Ox 99 100 100 100 O2 Delivery Ventilator Ventilator Ventilator Ventilator 01/01/20 01/01/20 01/01/20 01/01/20 11:30 12:00 12:00 12:00 Temp 97.5 97.5 Pulse 84 82 Resp 24 24 B/P (MAP) 99/69 (79) 93/74 (80) Pulse Ox 100 97 98 O2 Delivery Ventilator Ventilator Ventilator Mechanical Ventilator 01/01/20 01/01/20 01/01/20 01/01/20 12:15 12:30 12:45 13:00 Temp 98.8 98.8 Pulse 88 80 84 84 Resp 24 24 24 24 B/P (MAP) 87/76 (80) 96/52 (67) 89/59 (69) 91/64 (73) Pulse Ox 96 96 96 96 O2 Delivery Ventilator Ventilator Ventilator Ventilator 01/01/20 01/01/20 01/01/20 01/01/20 13:15 13:30 14:00 14:30 Pulse 84 82 90 Resp 24 24 24 24 B/P (MAP) 94/71 (79) 94/71 (79) 111/75 (87) Pulse Ox 96 96 97 O2 Delivery Ventilator Ventilator Ventilator Ventilator 01/01/20 01/01/20 01/01/20 01/01/20 15:11 15:30 16:00 17:00 Temp 99.0 99.0 Pulse 92 Resp 24 22 B/P (MAP) 106/76 (86) 97/65 (76) Pulse Ox 98 97 96 O2 Delivery Ventilator Ventilator Mechanical Ventilator Ventilator 01/01/20 01/01/20 01/01/20 01/01/20 18:00 18:06 19:00 20:00 Pulse 104 Resp 22 22 B/P (MAP) 127/69 (88) 116/69 (85) Pulse Ox 99 98 99 O2 Delivery Ventilator Ventilator Ventilator Mechanical Ventilator 01/01/20 01/01/20 01/01/20 01/01/20 20:00 20:20 21:00 22:00 Temp 102.2 102.2 Pulse 107 110 111 Resp 22 22 27 B/P (MAP) 102/83 (89) 115/76 (89) 110/73 (85) Pulse Ox 99 96 98 96 O2 Delivery Ventilator Ventilator Ventilator Ventilator 01/01/20 01/01/20 01/01/20 01/01/20 23:00 23:24 23:26 23:59 Pulse 100 Resp 22 22 B/P (MAP) 109/76 (87) Pulse Ox 97 93 93 O2 Delivery Ventilator Ventilator Mechanical Ventilator O2 Flow Rate 15.0 01/02/20 01/02/20 01/02/20 01/02/20 00:01 00:25 01:00 02:00 Temp 102.3 102.3 Pulse 96 102 114 Resp 23 23 23 21 B/P (MAP) 98/77 (84) 125/72 (89) 89/53 (65) Pulse Ox 97 93 97 92 O2 Delivery Ventilator Ventilator Ventilator O2 Flow Rate 15.0 01/02/20 01/02/20 01/02/20 01/02/20 03:00 04:00 04:00 04:00 Temp 100.3 100.3 Pulse 112 106 Resp B/P (MAP) 95/65 (75) 86/59 (68) Pulse Ox 93 91 90 O2 Delivery Ventilator Mechanical Ventilator Ventilator Ventilator 01/02/20 01/02/20 05:00 06:00 Pulse 112 112 Resp B/P (MAP) 91/55 (67) 78/51 (60) Pulse Ox 93 94 O2 Delivery Ventilator Ventilator O2 Flow Rate 22.0 Intake and Output 01/01/20 01/01/20 01/02/20 15:00 23:00 07:00 Intake Total 250 ml 1391 ml 2430.6 ml Output Total 165 ml 325 ml 10 ml Balance 85 ml 1066 ml 2420.6 ml Nutrition Consultation Dietary Evaluation: Recommendations by RD: Dietary education by RD, Increase Calorie Intake Comments: REC TFs per following: VitalAF@20 ml/hr, increase 10ml q8 hrs as tolerated to goal rate 45 ml/hr w/125 ml water flushes q4 hrs or flushes per MD If pt placed in prone position, recommend TFs@20 ml/hr w/50 ml water flushes q6 hrs or per MD and ensure head of bed elevated at least 15 degrees to minimize aspiration risk, discussed w/RN Expected Outcomes/Goals: Initiation of TFs within 24 - 48 hrs of intubation Malnutrition Findings: Weight Status: Appropriate GRISEL TEJEDA MD Jan 02, 2020 07:21
[2020-01-02 08:42] LABS: BASE EXCESS ABG -6 mmol/L (-3-3); HCO3 ABG 21 mmol/L (21-28); PCO2 ABG 45 mmHg (35-46); PO2 ABG 60 mmHg (65-108); SAT O2 ABG 89 % (92-99)
[2020-01-02 08:50] LABS: FIO2 ABG 100
[2020-01-02] MEDS: ELECTROLYTE (ICU) PROTOCOL. MC SCH (09:00)
[2020-01-02] MEDS ORDERED: ZINC SULFATE 220 MG CAPSULE. PO SCH (09:00)
[2020-01-02] MEDS: IV RINGERS,LACTATED 1000ML 1,000 ML IV SCH (09:43)
[2020-01-02] MEDS: PANTOPRAZOLE IV PUSH 40 MG VIAL. IVP SCH (09:44)
--- NOTE | 2020-01-02 11:12 | PDOC ---
PULMONARY PROGRESS NOTES Subjective remains intubated/sedated on 100%FIO2/high PEEP worsening renal function/ making minimal urine Vitals Vital Signs Date Time Temp Pulse Resp B/P (MAP) Pulse Ox O2 Delivery O2 Flow Rate FiO2 01/02/20 09:44 24 93 Ventilator 01/02/20 09:00 94 137/89 (105) 01/02/20 08:00 100.5 100.5 01/02/20 06:00 22.0 Comments visual exam done sedated no rash leg edema Labs Laboratory Tests Test 12/31/19 12:27 12/31/19 16:31 12/31/19 20:35 01/01/20 00:06 Glucose (Fingerstick) 185 mg/dL (70-99) 162 mg/dL (70-99) 140 mg/dL (70-99) O2 Saturation 90 % (92-99) Arterial Blood pH 7.36 (7.35-7.45) Arterial Blood pCO2 at Patient Temp 45 mmHg (35-46) Arterial Blood pO2 at Patient Temp 58 mmHg (65-108) Arterial Blood HCO3 25 mmol/L (21-28) Arterial Blood Base Excess -1 mmol/L (-3-3) FiO2 90 Test 01/01/20 02:15 01/01/20 07:50 01/01/20 11:53 01/01/20 14:48 Sodium Level 149 mmol/L (136-145) Potassium Level 4.0 mmol/L (3.5-5.1) Chloride Level 113 mmol/L (98-107) Carbon Dioxide Level 24 mmol/L (21-32) Anion Gap 12 (6-14) Blood Urea Nitrogen 37 mg/dL (7-20) Creatinine 3.5 mg/dL (0.6-1.0) Estimated GFR (Cockcroft-Gault) 15.0 Glucose Level 168 mg/dL (70-99) Calcium Level 7.9 mg/dL (8.5-10.1) Magnesium Level 2.1 mg/dL (1.8-2.4) Creatine Kinase 376 U/L (26-192) Vancomycin Level Trough 25.2 mcg/mL (10.0-20.0) 21.2 mcg/mL (10.0-20.0) Vancomycin Last Dose Date Unk Unk Vancomycin Last Dose Time Unk Unk O2 Saturation 94 % (92-99) Arterial Blood pH 7.33 (7.35-7.45) Arterial Blood pCO2 at Patient Temp 44 mmHg (35-46) Arterial Blood pO2 at Patient Temp 75 mmHg (65-108) Arterial Blood HCO3 23 mmol/L (21-28) Arterial Blood Base Excess -3 mmol/L (-3-3) FiO2 100 Glucose (Fingerstick) 185 mg/dL (70-99) Test 01/02/20 00:21 01/02/20 06:00 01/02/20 06:11 01/02/20 08:20 Glucose (Fingerstick) 101 mg/dL (70-99) 176 mg/dL (70-99) White Blood Count 15.6 x10^3/uL (4.0-11.0) Red Blood Count 3.69 x10^6/uL (3.50-5.40) Hemoglobin 10.8 g/dL (12.0-15.5) Hematocrit 33.8 % (36.0-47.0) Mean Corpuscular Volume 92 fL (79-100) Mean Corpuscular Hemoglobin 29 pg (25-35) Mean Corpuscular Hemoglobin Concent 32 g/dL (31-37) Red Cell Distribution Width 15.0 % (11.5-14.5) Platelet Count 197 x10^3/uL (140-400) Sodium Level 146 mmol/L (136-145) Potassium Level 4.4 mmol/L (3.5-5.1) Chloride Level 111 mmol/L (98-107) Carbon Dioxide Level 22 mmol/L (21-32) Anion Gap 13 (6-14) Blood Urea Nitrogen 49 mg/dL (7-20) Creatinine 4.5 mg/dL (0.6-1.0) Estimated GFR (Cockcroft-Gault) 11.2 Glucose Level 203 mg/dL (70-99) Calcium Level 7.7 mg/dL (8.5-10.1) Random Vancomycin Level 22.1 mcg/mL O2 Saturation 89 % (92-99) Arterial Blood pH 7.29 (7.35-7.45) Arterial Blood pCO2 at Patient Temp 45 mmHg (35-46) Arterial Blood pO2 at Patient Temp 60 mmHg (65-108) Arterial Blood HCO3 21 mmol/L (21-28) Arterial Blood Base Excess -6 mmol/L (-3-3) FiO2 100 Laboratory Tests Test 01/01/20 11:53 01/01/20 14:48 01/02/20 00:21 01/02/20 06:00 Glucose (Fingerstick) 185 mg/dL (70-99) 101 mg/dL (70-99) Vancomycin Level Trough 21.2 mcg/mL (10.0-20.0) Vancomycin Last Dose Date Unk Vancomycin Last Dose Time Unk White Blood Count 15.6 x10^3/uL (4.0-11.0) Red Blood Count 3.69 x10^6/uL (3.50-5.40) Hemoglobin 10.8 g/dL (12.0-15.5) Hematocrit 33.8 % (36.0-47.0) Mean Corpuscular Volume 92 fL (79-100) Mean Corpuscular Hemoglobin 29 pg (25-35) Mean Corpuscular Hemoglobin Concent 32 g/dL (31-37) Red Cell Distribution Width 15.0 % (11.5-14.5) Platelet Count 197 x10^3/uL (140-400) Sodium Level 146 mmol/L (136-145) Potassium Level 4.4 mmol/L (3.5-5.1) Chloride Level 111 mmol/L (98-107) Carbon Dioxide Level 22 mmol/L (21-32) Anion Gap 13 (6-14) Blood Urea Nitrogen 49 mg/dL (7-20) Creatinine 4.5 mg/dL (0.6-1.0) Estimated GFR (Cockcroft-Gault) 11.2 Glucose Level 203 mg/dL (70-99) Calcium Level 7.7 mg/dL (8.5-10.1) Random Vancomycin Level 22.1 mcg/mL Test 01/02/20 06:11 01/02/20 08:20 Glucose (Fingerstick) 176 mg/dL (70-99) O2 Saturation 89 % (92-99) Arterial Blood pH 7.29 (7.35-7.45) Arterial Blood pCO2 at Patient Temp 45 mmHg (35-46) Arterial Blood pO2 at Patient Temp 60 mmHg (65-108) Arterial Blood HCO3 21 mmol/L (21-28) Arterial Blood Base Excess -6 mmol/L (-3-3) FiO2 100 Medications Active Scripts Medications Dose Route/Sig Max Daily Dose Days Date Category Senna (Sennosides) 8.6 Mg Tablet 8.6 Mg PO BID 02/11/19 Reported Miralax (Polyethylene Glycol 3350) 17 Gm Powd.pack 1 Packet PO DAILY 02/11/19 Reported Milk Of Magnesia (Magnesium Hydroxide) 400 Mg/5 Ml Oral.susp 400 Mg PO DAILY 02/11/19 Reported Melatonin 3 Mg Tablet 1 Tab PO QHS 02/11/19 Reported Acetaminophen 325 Mg Tablet 650 Mg PO PRN Q4HRS PRN 12/03/13 Reported Keppra (Levetiracetam) 500 Mg Tablet 750 Mg PO BID 12/03/13 Reported Amlodipine Besylate 10 Mg Tablet 10 Mg PO DAILY 12/03/13 Reported Impression . IMPRESSION: 1. Acute respiratory failure secondary to COVID-19./ ARDS 2. COVID-19.Pneumonia/shock 3. Bilateral pulmonary infiltrates due to pneumonia. 4. Cerebrovascular accident. 5. Dementia. 6. Type of seizure. 7. History of ventriculoperitoneal shunt. 8. Hypernatremia. 9. Hypokalemia. 10. Fever. 11. Worsening renal failure 12. Severe PCM Plan . DISCUSSION: As indicated above, the patient presents from the retirement where there has been a great number of COVID positive patients. She presents during the global COVID-19 pandemic. Diagnosis of COVID-19 was suspected of upfront. The patient is currently being treated with current guidelines. Remains on high dose levo/ max oxygen/ high PEEP We will continue support with assist control ventilation. BS abx. On vanc/ Zosyn off heparin drip per Cardiology. TF follow renal rec / Not the best candidate for HD Prognosis poor . will call family for code status d/w RN Total cumulative critical care time of 30 minutes, reviewing data, labs, chest x-ray and formulating a plan. Overall, suspect the patient will not survive. We will continue our efforts and discuss further advanced directive with the patient's family. addend: conference call with entire family. multi-organ failure. family agree to withdraw care. d/w RN. comfort care COVID-19 CRITERIA: The patient was evaluated during the global COVID-19 pandemic, and that diagnosis was suspected/considered upon their initial presentation. Their evaluation, treatment and testing was consistent with current guidelines for patients who present with complaints or symptoms that may be related to COVID-19. KATH ROMAN MD Jan 02, 2020 11:12
--- NOTE | 2020-01-02 11:48 | PDOC2 ---
CONSULT Date of Consult Date of Consult DATE: 01/02/20 TIME: 11:39 Reason for Consult Reason for Consult: [id number] Referring Physician Referring Physician: HEATHER Identification/Chief Complaint Chief Complaint SOB, INTUBATED Source Source: Chart review History of Present Illness Reason for Visit: THIS IS AN 84 YR OLD WITH COVID 19 PNEUMONIA AND ACUTE RESP FAILURE. SHE IS SEPTIC AND HYPOTENSIVE AND IN PROGRESSIVE RENAL FAILURE. CR OF 4.5 FROM 1.0. NO CKD NOTED. HYPOKALEMIA AND HYPERNATREMIA NOTED. PT IS ON PRESSORS AND FULL VENT SUPPORT. CASE WAS D/W DR TEJEDA Past Medical History Cardiovascular: HTN, Hyperlipidemia CENTRAL NERVOUS SYSTEM: CVA, Dementia, Seizure Endocrine: Diabetes Past Surgical History Past Surgical History: Other (ventriculoperitoneal shunt) Family History Family History: No Significant, Family History Unknown Social History Quit ALCOHOL: none Drugs: None Lives: [facility] Current Problem List Problem List Problems Medical Problems: (1) Acute respiratory failure Status: Acute (2) Elevated troponin Status: Acute Current Medications Current Medications Current Medications Acetaminophen (Tylenol Supp) 650 mg 1X ONCE NH Last administered on 12/30/19at 01:40; Start 12/30/19 at 01:30; Stop 12/30/19 at 01:31; Status DC Vancomycin HCl (Vanco Per Pharmacy) 1 each PRN DAILY PRN MC SEE COMMENTS Last administered on 01/01/20at 15:44; Start 12/30/19 at 01:45 Levofloxacin/ Dextrose 150 ml @ 100 mls/hr 1X ONCE IV Last administered on 12/30/19at 01:58; Start 12/30/19 at 02:00; Stop 12/30/19 at 03:29; Status DC Potassium Chloride/Water 100 ml @ 50 mls/hr 1X ONCE IV ; Start 12/30/19 at 02:00; Stop 12/30/19 at 03:59; Status UNV Potassium Chloride/Water 100 ml @ 100 mls/hr Q1H IV Last administered on 12/30/19at 05:28; Start 12/30/19 at 02:00; Stop 12/30/19 at 03:59; Status DC Potassium Chloride/Dextrose 1,000 ml @ 75 mls/hr 1X ONCE IV Last administered on 12/30/19at 04:14; Start 12/30/19 at 02:30; Stop 12/30/19 at 15:49; Status DC Insulin Human Lispro (HumaLOG) 15 units 1X ONCE SQ Last administered on 12/30/19at 02:17; Start 12/30/19 at 02:30; Stop 12/30/19 at 02:31; Status DC Heparin Sodium (Porcine) (Heparin Sodium) 4,000 unit 1X ONCE IV Last administered on 12/30/19at 04:38; Start 12/30/19 at 02:30; Stop 12/30/19 at 02:31; Status DC Heparin Sodium/ Dextrose 250 ml @ 0 mls/hr CONT PRN IV PER PROTOCOL Last administered on 12/30/19at 05:46; Start 12/30/19 at 02:00; Stop 12/31/19 at 09:47; Status DC Heparin Sodium (Porcine) (Heparin Sodium) 2,050 unit PRN Q6HRS PRN IV FOR UFH LEVEL LESS THAN 0.2; Start 12/30/19 at 02:00; Stop 12/31/19 at 09:47; Status DC Info (Anti-Coagulation Monitoring By Pharmacy) 1 each PRN DAILY PRN MC SEE COMMENTS Last administered on 12/30/19at 04:37; Start 12/30/19 at 02:15; Stop 01/01/20 at 11:20; Status DC Vancomycin HCl 1.75 gm/Sodium Chloride 500 ml @ 250 mls/hr 1X ONCE IV Last administered on 12/30/19at 02:22; Start 12/30/19 at 03:00; Stop 12/30/19 at 04:59; Status DC Midazolam HCl 50 mg/Sodium Chloride 50 ml @ 0 mls/hr 1X ONCE IV ; Start 12/30/19 at 03:30; Stop 12/30/19 at 03:31; Status UNV Midazolam HCl 100 mg/Sodium Chloride 100 ml @ 0 mls/hr 1X ONCE IV Last administered on 12/30/19at 03:48; Start 12/30/19 at 04:00; Stop 12/30/19 at 04:01; Status DC Ondansetron HCl (Zofran) 4 mg PRN Q8HRS PRN IV NAUSEA/VOMITING; Start 12/30/19 at 04:15; Stop 12/31/19 at 04:14; Status DC Insulin Human Lispro (HumaLOG) 0-7 UNITS TIDWMEALS SQ ; Start 12/30/19 at 08:00; Stop 12/30/19 at 19:38; Status DC Dextrose (Dextrose 50%-Water Syringe) 12.5 gm PRN Q15MIN PRN IV SEE COMMENTS; Start 12/30/19 at 04:15 Fentanyl Citrate (Fentanyl 2ml Vial) 25 mcg PRN Q1HR PRN IV SEE COMMENTS; Start 12/30/19 at 04:15 Fentanyl Citrate (Fentanyl 2ml Vial) 50 mcg PRN Q1HR PRN IV SEE COMMENTS Last administered on 12/31/19at 02:05; Start 12/30/19 at 04:15 Chlorhexidine Gluconate (Peridex) 15 ml BID MM Last administered on 12/30/19at 21:25; Start 12/30/19 at 09:00; Stop 12/31/19 at 10:08; Status DC Midazolam HCl 100 ml @ 0 mls/hr CONT PRN IV SEE PROTOCOL Last administered on 01/02/20at 00:24; Start 12/30/19 at 04:15 Vancomycin HCl 1 gm/Sodium Chloride 250 ml @ 250 mls/hr Q24H IV Last administered on 12/31/19at 03:16; Start 12/31/19 at 03:00; Stop 01/01/20 at 02:57; Status DC Vancomycin HCl (Vancomycin Trough Level) 1 each 1X ONCE MC Last administered on 01/01/20at 02:15; Start 01/01/20 at 02:30; Stop 01/01/20 at 02:31; Status DC Norepinephrine Bitartrate 8 mg/ Dextrose 258 ml @ 13.197 mls/ hr 1X ONCE IV ; Start 12/30/19 at 05:00; Stop 12/31/19 at 00:32; Status DC Rocuronium [place] (Zemuron) 50 mg STK-MED ONCE .ROUTE ; Start 12/30/19 at 05:27; Stop 12/30/19 at 05:28; Status DC Etomidate (Amidate) 20 mg STK-MED ONCE IV ; Start 12/30/19 at 05:27; Stop 12/30/19 at 05:28; Status DC Sodium Chloride (Normal Saline Flush) 3 ml QSHIFT PRN IV AFTER MEDS AND BLOOD DRAWS; Start 12/30/19 at 12:15 Ondansetron HCl (Zofran) 4 mg PRN Q4HRS PRN IV NAUSEA/VOMITING, 1ST CHOICE; S tart 12/30/19 at 12:15 Acetaminophen (Tylenol Supp) 650 mg PRN Q4HRS PRN NH TEMP OVER 100.4F OR MILD PAIN Last administered on 12/30/19at 20:17; Start 12/30/19 at 12:15 Sodium Monofluorophosphate (Fleet Adult) 133 ml PRN DAILY PRN NH CONSTIPATION, 2nd choice; Start 12/30/19 at 12:15 Albuterol/ Ipratropium (Duoneb) 3 ml Q4HRS NEB ; Start 12/30/19 at 16:00; Stop 12/30/19 at 13:28; Status DC Pantoprazole Sodium (PROTONIX VIAL for IV PUSH) 40 mg DAILY IVP Last administered on 01/02/20at 09:44; Start 12/30/19 at 13:00 Prochlorperazine Edisylate (Compazine) 5 mg PRN Q6HRS PRN IVP NAUSEA/VOMITING, 2ND CHOICE; Start 12/30/19 at 12:30 Info (Icu Electrolyte Protocol) 1 ea DAILY MC Last administered on 01/02/20at 09:00; Start 12/31/19 at 09:00 Sodium Chloride (Normal Saline Flush) 3 ml QSHIFT PRN IV AFTER MEDS AND BLOOD DRAWS; Start 12/30/19 at 12:30 Bisacodyl (Dulcolax Supp) 10 mg PRN DAILY PRN NH CONSTIPATION, 1st choice; Start 12/30/19 at 12:30 Albuterol Sulfate (Ventolin Neb Soln) 2.5 mg PRN Q4HRS PRN NEB SHORTNESS OF BREATH; Start 12/30/19 at 13:45 Piperacillin Sod/ Tazobactam Sod 3.375 gm/Sodium Chloride 50 ml @ 100 mls/hr Q6HRS IV Last administered on 12/31/19at 06:02; Start 12/30/19 at 16:00; Stop 12/31/19 at 09:00; Status DC Ringer's Solution 1,000 ml @ 100 mls/hr Q10H IV Last administered on 01/02/20at 09:43; Start 12/30/19 at 18:30 Insulin Human Lispro (HumaLOG) 0-7 UNITS Q6HRS SQ Last administered on 01/01/20at 11:59; Start 12/31/19 at 00:00 Fentanyl Citrate 30 ml @ 0 mls/hr CONT PRN IV SEE PROTOCOL Last administered on 01/02/20at 08:39; Start 12/31/19 at 04:00 Potassium Chloride/Water 100 ml @ 100 mls/hr Q1H IV Last administered on 12/31/19at 10:10; Start 12/31/19 at 07:00; Stop 12/31/19 at 10:59; Status DC Piperacillin Sod/ Tazobactam Sod 2.25 gm/Sodium Chloride 50 ml @ 100 mls/hr Q6HRS IV Last administered on 01/02/20at 06:13; Start 12/31/19 at 12:00; Stop 01/02/20 at 09:51; Status DC Norepinephrine Bitartrate 8 mg/ Dextrose 258 ml @ 12.752 mls/ hr CONT PRN IV PER PROTOCOL Last administered on 01/01/20at 17:33; Start 12/31/19 at 10:15 Enoxaparin Sodium (Lovenox 30mg Syringe) 30 mg Q24H SQ Last administered on 01/01/20at 08:20; Start 01/01/20 at 09:00; Stop 01/01/20 at 14:10; Status DC Magnesium Sulfate 50 ml @ 25 mls/hr 1X ONCE IV Last administered on 12/31/19at 16:22; Start 12/31/19 at 16:00; Stop 12/31/19 at 17:59; Status DC Levetiracetam 750 mg/Dextrose 107.5 ml @ 440 mls/hr 1X ONCE IV Last administered on 12/31/19at 22:35; Start 12/31/19 at 22:00; Stop 12/31/19 at 22:14; Status DC Levetiracetam (Keppra) 750 mg BID PO Last administered on 01/01/20at 08:20; Start 01/01/20 at 09:00; Stop 01/01/20 at 08:27; Status DC Vancomycin HCl (Vancomycin Trough Level) 1 each 1X ONCE MC Last administered on 01/01/20at 15:00; Start 01/01/20 at 15:00; Stop 01/01/20 at 15:01; Status DC Levetiracetam (Keppra) 750 mg BID PEG Last administered on 01/02/20at 09:44; Start 01/01/20 at 09:00 Midazolam HCl (Versed Premix) 100 mg STK-MED ONCE IV ; Start 12/31/19 at 09:39; Stop 01/01/20 at 11:30; Status DC Midazolam HCl (Versed Premix) 100 mg STK-MED ONCE IV ; Start 12/30/19 at 03:34; Stop 01/01/20 at 12:05; Status DC Heparin Sodium (Porcine) (Heparin Sodium) 5,000 unit Q8HRS SQ Last administered on 01/02/20at 06:42; Start 01/02/20 at 06:00 Vancomycin HCl (Vancomycin Random Level) 1 each 1X ONCE MC Last administered on 01/02/20at 05:00; Start 01/02/20 at 05:00; Stop 01/02/20 at 05:02; Status DC Zinc Sulfate (Orazinc) 220 mg DAILY PO Last administered on 01/02/20at 09:44; Start 01/02/20 at 09:00 Piperacillin Sod/ Tazobactam Sod 2.25 gm/Sodium Chloride 50 ml @ 100 mls/hr Q8HRS IV ; Start 01/02/20 at 14:00 Active Scripts Active Reported Senna (Sennosides) 8.6 Mg Tablet 8.6 Mg PO BID Miralax (Polyethylene Glycol 3350) 17 Gm Powd.pack 1 Packet PO DAILY Milk Of Magnesia (Magnesium Hydroxide) 400 Mg/5 Ml Oral.susp 400 Mg PO DAILY Melatonin 3 Mg Tablet 1 Tab PO QHS Acetaminophen 325 Mg Tablet 650 Mg PO PRN Q4HRS PRN Keppra (Levetiracetam) 500 Mg Tablet 750 Mg PO BID Amlodipine Besylate 10 Mg Tablet 10 Mg PO DAILY Allergies Allergies: Coded Allergies: No Known Drug Allergies (Unverified , 01/07/14) ROS Review of System UNABLE TO OBTAIN Physical Exam Physical Exam NOT DONE DUE TO COVID 19 STATUS Vitals VITALS Vital Signs Date Time Temp Pulse Resp B/P (MAP) Pulse Ox O2 Delivery O2 Flow Rate FiO2 01/02/20 09:44 24 93 Ventilator 01/02/20 09:00 94 137/89 (105) 01/02/20 08:00 100.5 100.5 01/02/20 06:00 22.0 Labs Labs Laboratory Tests Test 12/31/19 12:27 12/31/19 16:31 12/31/19 20:35 01/01/20 00:06 Glucose (Fingerstick) 185 mg/dL (70-99) 162 mg/dL (70-99) 140 mg/dL (70-99) O2 Saturation 90 % (92-99) Arterial Blood pH 7.36 (7.35-7.45) Arterial Blood pCO2 at Patient Temp 45 mmHg (35-46) Arterial Blood pO2 at Patient Temp 58 mmHg (65-108) Arterial Blood HCO3 25 mmol/L (21-28) Arterial Blood Base Excess -1 mmol/L (-3-3) FiO2 90 Test 01/01/20 02:15 01/01/20 07:50 01/01/20 11:53 01/01/20 14:48 Sodium Level 149 mmol/L (136-145) Potassium Level 4.0 mmol/L (3.5-5.1) Chloride Level 113 mmol/L (98-107) Carbon Dioxide Level 24 mmol/L (21-32) Anion Gap 12 (6-14) Blood Urea Nitrogen 37 mg/dL (7-20) Creatinine 3.5 mg/dL (0.6-1.0) Estimated GFR (Cockcroft-Gault) 15.0 Glucose Level 168 mg/dL (70-99) Calcium Level 7.9 mg/dL (8.5-10.1) Magnesium Level 2.1 mg/dL (1.8-2.4) Creatine Kinase 376 U/L (26-192) Vancomycin Level Trough 25.2 mcg/mL (10.0-20.0) 21.2 mcg/mL (10.0-20.0) Vancomycin Last Dose Date Unk Unk Vancomycin Last Dose Time Unk Unk O2 Saturation 94 % (92-99) Arterial Blood pH 7.33 (7.35-7.45) Arterial Blood pCO2 at Patient Temp 44 mmHg (35-46) Arterial Blood pO2 at Patient Temp 75 mmHg (65-108) Arterial Blood HCO3 23 mmol/L (21-28) Arterial Blood Base Excess -3 mmol/L (-3-3) FiO2 100 Glucose (Fingerstick) 185 mg/dL (70-99) Test 01/02/20 00:21 01/02/20 06:00 01/02/20 06:11 01/02/20 08:20 Glucose (Fingerstick) 101 mg/dL (70-99) 176 mg/dL (70-99) White Blood Count 15.6 x10^3/uL (4.0-11.0) Red Blood Count 3.69 x10^6/uL (3.50-5.40) Hemoglobin 10.8 g/dL (12.0-15.5) Hematocrit 33.8 % (36.0-47.0) Mean Corpuscular Volume 92 fL (79-100) Mean Corpuscular Hemoglobin 29 pg (25-35) Mean Corpuscular Hemoglobin Concent 32 g/dL (31-37) Red Cell Distribution Width 15.0 % (11.5-14.5) Platelet Count 197 x10^3/uL (140-400) Sodium Level 146 mmol/L (136-145) Potassium Level 4.4 mmol/L (3.5-5.1) Chloride Level 111 mmol/L (98-107) Carbon Dioxide Level 22 mmol/L (21-32) Anion Gap 13 (6-14) Blood Urea Nitrogen 49 mg/dL (7-20) Creatinine 4.5 mg/dL (0.6-1.0) Estimated GFR (Cockcroft-Gault) 11.2 Glucose Level 203 mg/dL (70-99) Calcium Level 7.7 mg/dL (8.5-10.1) Random Vancomycin Level 22.1 mcg/mL O2 Saturation 89 % (92-99) Arterial Blood pH 7.29 (7.35-7.45) Arterial Blood pCO2 at Patient Temp 45 mmHg (35-46) Arterial Blood pO2 at Patient Temp 60 mmHg (65-108) Arterial Blood HCO3 21 mmol/L (21-28) Arterial Blood Base Excess -6 mmol/L (-3-3) FiO2 100 Laboratory Tests Test 01/01/20 11:53 01/01/20 14:48 01/02/20 00:21 01/02/20 06:00 Glucose (Fingerstick) 185 mg/dL (70-99) 101 mg/dL (70-99) Vancomycin Level Trough 21.2 mcg/mL (10.0-20.0) Vancomycin Last Dose Date Unk Vancomycin Last Dose Time Unk White Blood Count 15.6 x10^3/uL (4.0-11.0) Red Blood Count 3.69 x10^6/uL (3.50-5.40) Hemoglobin 10.8 g/dL (12.0-15.5) Hematocrit 33.8 % (36.0-47.0) Mean Corpuscular Volume 92 fL (79-100) Mean Corpuscular Hemoglobin 29 pg (25-35) Mean Corpuscular Hemoglobin Concent 32 g/dL (31-37) Red Cell Distribution Width 15.0 % (11.5-14.5) Platelet Count 197 x10^3/uL (140-400) Sodium Level 146 mmol/L (136-145) Potassium Level 4.4 mmol/L (3.5-5.1) Chloride Level 111 mmol/L (98-107) Carbon Dioxide Level 22 mmol/L (21-32) Anion Gap 13 (6-14) Blood Urea Nitrogen 49 mg/dL (7-20) Creatinine 4.5 mg/dL (0.6-1.0) Estimated GFR (Cockcroft-Gault) 11.2 Glucose Level 203 mg/dL (70-99) Calcium Level 7.7 mg/dL (8.5-10.1) Random Vancomycin Level 22.1 mcg/mL Test 01/02/20 06:11 01/02/20 08:20 Glucose (Fingerstick) 176 mg/dL (70-99) O2 Saturation 89 % (92-99) Arterial Blood pH 7.29 (7.35-7.45) Arterial Blood pCO2 at Patient Temp 45 mmHg (35-46) Arterial Blood pO2 at Patient Temp 60 mmHg (65-108) Arterial Blood HCO3 21 mmol/L (21-28) Arterial Blood Base Excess -6 mmol/L (-3-3) FiO2 100 Assessment/Plan Assessment/Plan IMP [id number] HYPERNATREMIA HYPOKALMEIA ACIDEMIA-MET AND RESP ACUTE RESP FAILURE COVID 19 PNEUMONIA DEMENTIA HX OF CVA HX OF [employer] [place] [employer] PLAN PT SHOULD BE COMFORT CARE AND CONSIDER WITHDRAWAL PT IS NOT A CANDIDATE FOR DIALYSIS I HAVE D/W ATTENDING AND WE ARE IN AGREEMENT WILL SIGN OFF PLEASE CALL IF NEEDED BERENICE MCCANN MD Jan 02, 2020 11:48
--- NOTE | 2020-01-02 13:08 | NUR ---
Order for Comfort measures per Dr Rivera at 1200. Patient extubated at 1215. Time of at 1231. Doctor's and family notified of time of . Juliamas placed in bag and placed with body per family.
--- NOTE | 2020-01-02 13:24 | PDOC3 ---
Discharge Summary Visit Information Date of Admission: Dec 30, 2019 Date of Discharge: Jan 02, 2020 Admitting Diagnosis: Acute hypoxic respiratory failure Final Diagnosis Problems Medical Problems: (1) Acute respiratory failure Status: Acute (2) Elevated troponin Status: Acute Brief Hospital Course Allergies Allergies Coded Allergies Type Severity Reaction Last Updated Verified No Known Drug Allergies 01/07/14 No Vital Signs Vital Signs Date Time Temp Pulse Resp B/P (MAP) Pulse Ox O2 Delivery O2 Flow Rate FiO2 01/02/20 12:00 Mechanical Ventilator 01/02/20 12:00 102 26 86 01/02/20 10:00 82/36 (51) 01/02/20 08:00 100.5 100.5 01/02/20 06:00 22.0 Lab Results Laboratory Tests Test 12/31/19 16:31 12/31/19 20:35 01/01/20 00:06 01/01/20 02:15 Glucose (Fingerstick) 162 mg/dL (70-99) 140 mg/dL (70-99) O2 Saturation 90 % (92-99) Arterial Blood pH 7.36 (7.35-7.45) Arterial Blood pCO2 at Patient Temp 45 mmHg (35-46) Arterial Blood pO2 at Patient Temp 58 mmHg (65-108) Arterial Blood HCO3 25 mmol/L (21-28) Arterial Blood Base Excess -1 mmol/L (-3-3) FiO2 90 Sodium Level 149 mmol/L (136-145) Potassium Level 4.0 mmol/L (3.5-5.1) Chloride Level 113 mmol/L (98-107) Carbon Dioxide Level 24 mmol/L (21-32) Anion Gap 12 (6-14) Blood Urea Nitrogen 37 mg/dL (7-20) Creatinine 3.5 mg/dL (0.6-1.0) Estimated GFR (Cockcroft-Gault) 15.0 Glucose Level 168 mg/dL (70-99) Calcium Level 7.9 mg/dL (8.5-10.1) Magnesium Level 2.1 mg/dL (1.8-2.4) Creatine Kinase 376 U/L (26-192) Vancomycin Level Trough 25.2 mcg/mL (10.0-20.0) Vancomycin Last Dose Date Unk Vancomycin Last Dose Time Unk Test 01/01/20 07:50 4/14/20 11:53 01/01/20 14:48 01/02/20 00:21 O2 Saturation 94 % (92-99) Arterial Blood pH 7.33 (7.35-7.45) Arterial Blood pCO2 at Patient Temp 44 mmHg (35-46) Arterial Blood pO2 at Patient Temp 75 mmHg (65-108) Arterial Blood HCO3 23 mmol/L (21-28) Arterial Blood Base Excess -3 mmol/L (-3-3) FiO2 100 Glucose (Fingerstick) 185 mg/dL (70-99) 101 mg/dL (70-99) Vancomycin Level Trough 21.2 mcg/mL (10.0-20.0) Vancomycin Last Dose Date Unk Vancomycin Last Dose Time Unk Test 01/02/20 06:00 01/02/20 06:11 01/02/20 08:20 White Blood Count 15.6 x10^3/uL (4.0-11.0) Red Blood Count 3.69 x10^6/uL (3.50-5.40) Hemoglobin 10.8 g/dL (12.0-15.5) Hematocrit 33.8 % (36.0-47.0) Mean Corpuscular Volume 92 fL (79-100) Mean Corpuscular Hemoglobin 29 pg (25-35) Mean Corpuscular Hemoglobin Concent 32 g/dL (31-37) Red Cell Distribution Width 15.0 % (11.5-14.5) Platelet Count 197 x10^3/uL (140-400) Sodium Level 146 mmol/L (136-145) Potassium Level 4.4 mmol/L (3.5-5.1) Chloride Level 111 mmol/L (98-107) Carbon Dioxide Level 22 mmol/L (21-32) Anion Gap 13 (6-14) Blood Urea Nitrogen 49 mg/dL (7-20) Creatinine 4.5 mg/dL (0.6-1.0) Estimated GFR (Cockcroft-Gault) 11.2 Glucose Level 203 mg/dL (70-99) Calcium Level 7.7 mg/dL (8.5-10.1) Random Vancomycin Level 22.1 mcg/mL Glucose (Fingerstick) 176 mg/dL (70-99) O2 Saturation 89 % (92-99) Arterial Blood pH 7.29 (7.35-7.45) Arterial Blood pCO2 at Patient Temp 45 mmHg (35-46) Arterial Blood pO2 at Patient Temp 60 mmHg (65-108) Arterial Blood HCO3 21 mmol/L (21-28) Arterial Blood Base Excess -6 mmol/L (-3-3) FiO2 100 Laboratory Tests Test 01/01/20 14:48 01/02/20 00:21 01/02/20 06:00 01/02/20 06:11 Vancomycin Level Trough 21.2 mcg/mL (10.0-20.0) Vancomycin Last Dose Date Unk Vancomycin Last Dose Time Unk Glucose (Fingerstick) 101 mg/dL (70-99) 176 mg/dL (70-99) White Blood Count 15.6 x10^3/uL (4.0-11.0) Red Blood Count 3.69 x10^6/uL (3.50-5.40) Hemoglobin 10.8 g/dL (12.0-15.5) Hematocrit 33.8 % (36.0-47.0) Mean Corpuscular Volume 92 fL (79-100) Mean Corpuscular Hemoglobin 29 pg (25-35) Mean Corpuscular Hemoglobin Concent 32 g/dL (31-37) Red Cell Distribution Width 15.0 % (11.5-14.5) Platelet Count 197 x10^3/uL (140-400) Sodium Level 146 mmol/L (136-145) Potassium Level 4.4 mmol/L (3.5-5.1) Chloride Level 111 mmol/L (98-107) Carbon Dioxide Level 22 mmol/L (21-32) Anion Gap 13 (6-14) Blood Urea Nitrogen 49 mg/dL (7-20) Creatinine 4.5 mg/dL (0.6-1.0) Estimated GFR (Cockcroft-Gault) 11.2 Glucose Level 203 mg/dL (70-99) Calcium Level 7.7 mg/dL (8.5-10.1) Random Vancomycin Level 22.1 mcg/mL Test 01/02/20 08:20 O2 Saturation 89 % (92-99) Arterial Blood pH 7.29 (7.35-7.45) Arterial Blood pCO2 at Patient Temp 45 mmHg (35-46) Arterial Blood pO2 at Patient Temp 60 mmHg (65-108) Arterial Blood HCO3 21 mmol/L (21-28) Arterial Blood Base Excess -6 mmol/L (-3-3) FiO2 100 Brief Hospital Course 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 Patient is a resident of [place], roommate is positive for COVID, patient had been tested twice of which was negative however she presented with fever 102 rectally, tachypnea with respiratory rate in the 40s, saturations on 15 L of 88 to 90%. ED physician discussed resuscitation efforts with the daughter and with O2 saturations high 80's to 90's on 15 L NRB and Xray with evidence of bilateral consolidation she would like to proceed with full resuscitative efforts and patient was emergently intubated in ED and admitted to ICU. Na 153, potassium 2.7, chloride 113 - D5w with 20k at 75ml/hr, BS 422 - 10 units sq of insulin, Abx (vancomycin, Levaquin), Heparin gtt initiated given elevated troponin, likely 2/2 resp distress and demand ischemia [11/06/2019 admitted for fall with CT head revealing a new SDH, acute left frontal convexity subdural hematoma measuring 5 mm in thickness. Minimal mass effect.] patient presents from the long term where there has been a great number of COVID positive patients. She presents during the global COVID-19 pandemic. Diagnosis of COVID-19 was suspected of upfront. Consults: Pulmonology, Cardiology 12/30: Tmax 101.5F. Intubated, sedated on vent FiO2 100%, PEEP 8 w/ ABG w/ PO2 of 136. CXR unchanged. K 2.9 this morning. Na 151. Blood Culture with GPC 1/4 positive. SARS-CoV-2 (COVID 19) Positive PCR test. 12/31: Overnight proned with significant O2 desaturations, was placed back on increased sedation and FIO2 100% again. Very sedated. Cr 4.5, BUN 49, WBC 15.6, Hb 10.2. PEEP 8, FiO2 100%. Anuric on 01/02/2020. Problem list: Acute hypoxic respiratory failure Severe sepsis Elevated troponin Hypernatremia Hypokalemia H/o subdural hematoma - prior ever holes noted. recent left frontal convexity subdural hematoma 5 mm-->7mm. History of Alzheimer's - not on meds due to long-standing disease History of epilepsy, on levetiracetam - will continue 750mg BID. 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 Greater than 135 minutes spent on day of expiration/discharge. Discharge Information Condition at Discharge: / Disposition/Orders: Scheduled Amlodipine Besylate (Amlodipine Besylate) 10 Mg Tablet, 10 MG PO DAILY for UNKNOWN, (Reported) Entered as Reported by: RODRIGO LOW on 12/03/132320 Levetiracetam (Keppra) 500 Mg Tablet, 750 MG PO BID for SEIZURE, (Reported) Entered as Reported by: RODRIGO LOW on 12/03/132320 Magnesium Hydroxide (Milk Of Magnesia) 400 Mg/5 Ml Oral.susp, 400 MG PO DAILY for CONSTIPATION, (Reported) Entered as Reported by: WILMER WHITEHEAD on 02/11/191512 Melatonin (Melatonin) 3 Mg Tablet, 1 TAB PO QHS for INSOMNIA, #30 Ref 1 (Reported) Entered as Reported by: WILMER WHITEHEAD on 02/11/191512 Polyethylene Glycol 3350 (Miralax) 17 Gm Powd.pack, 1 PACKET PO DAILY for CONSTIPATION, #30 Ref 3 (Reported) Entered as Reported by: WILMER WHITEHEAD on 02/11/191512 Sennosides (Senna) 8.6 Mg Tablet, 8.6 MG PO BID for CONSTIPATION, #2 (Reported) Entered as Reported by: WILMER WHITEHEAD on 02/11/191512 Scheduled PRN Acetaminophen (Acetaminophen) 325 Mg Tablet, 650 MG PO PRN Q4HRS PRN for UNKN OWN, (Reported) Entered as Reported by: RODRIGO LOW on 12/03/13 2335 GRISEL TEJEDA MD Jan 02, 2020 13:24
[2020-01-02] MEDS ORDERED: PIPERACILLIN/TAZOBACTAM 2.25 GM in IV NORMAL SALINE 50ML 50 ML IV SCH (14:00)
== END 2020-01-02 12:45 | disposition expired | DRG 871 ==
LOC: ER 00:30 → 1 WEST ICU 03:32
PROVIDERS: ADMIT Family Medicine; ATTEND Family Medicine
PROC: 5A1945Z Respiratory Ventilation, 24-96 Consecutive Hours (ICD-10-PCS; principal; 2019-12-30)
PROC: 0BH17EZ Insertion of Endotracheal Airway into Trachea, Via Natural or Artificial Opening (ICD-10-PCS; 2019-12-30)
PROC: 02HV33Z Insertion of Infusion Device into Superior Vena Cava, Percutaneous Approach (ICD-10-PCS; 2019-12-30)
DX: A41.9 Sepsis, unspecified organism (principal); J96.01 Acute respiratory failure with hypoxia; U07.1 COVID-19; J12.89 Other viral pneumonia; E43 Unspecified severe protein-calorie malnutrition; N17.0 Acute kidney failure with tubular necrosis; E87.0 Hyperosmolality and hypernatremia; I24.8 Other forms of acute ischemic heart disease; J44.0 Chronic obstructive pulmonary disease with (acute) lower respiratory infection; R57.9 Shock, unspecified; D72.810 Lymphocytopenia; E10.65 Type 1 diabetes mellitus with hyperglycemia; Z68.26 Body mass index [BMI] 26.0-26.9, adult; E78.5 Hyperlipidemia, unspecified; E87.6 Hypokalemia; G30.9 Alzheimer's disease, unspecified; F02.80 Dementia in other diseases classified elsewhere, unspecified severity, without behavioral disturbance, psychotic disturbance, mood disturbance, and anxiety; G40.909 Epilepsy, unspecified, not intractable, without status epilepticus; I10 Essential (primary) hypertension; R65.20 Severe sepsis without septic shock; M19.042 Primary osteoarthritis, left hand; M19.041 Primary osteoarthritis, right hand; Z66 Do not resuscitate; Z79.4 Long term (current) use of insulin; Z79.899 Other long term (current) drug therapy; Z82.3 Family history of stroke; Z82.49 Family history of ischemic heart disease and other diseases of the circulatory system; Z83.3 Family history of diabetes mellitus; Z86.73 Personal history of transient ischemic attack (TIA), and cerebral infarction without residual deficits; Z87.891 Personal history of nicotine dependence; Z98.2 Presence of cerebrospinal fluid drainage device
CPT/HCPCS: 36415; 36556; 36600; 71045; 80048; 80053; 80202; 81001; 82010; 82550; 82805; 82962; 83605; 83735; 83880; 84484; 85025; 85027; 85520; 85610; 87040; 87086; 87186; 87205; 87641; 87804; 93005; 94002; 94003; 96365; 96367; 96368; 96375; 99291; C9113; J1644; J1650; J1815; J1953; J1956; J2250; J2543; J3010; J3370; J3475; J3480; J3490; J7040; J7042; J7050; J7060; J7120; G0378; J7030